=== PATIENT | female | born 1935 | race Caucasian/White ===

== ENCOUNTER 2017-08-29 12:28 | Inpatient (IN) ==
[2017-08-29] MEDS ORDERED: DILTIAZEM 100 MG VIAL.ADD IV ONE (12:39)
[2017-08-29] MEDS ORDERED: FLUMAZENIL 0.5 MG/5 ML VIAL IV ONE (12:42)
[2017-08-29] MEDS ORDERED: FLUMAZENIL 1 MG/10 ML VIAL IV ONE (12:49)
[2017-08-29] MEDS ORDERED: DILTIAZEM 50 MG/10 ML VIAL IV STA (12:49)
[2017-08-29] MEDS ORDERED: DILTIAZEM INJ 100 MG in SODIUM CHLORIDE 0.9% 100 ML IV SCH (13:00)
[2017-08-29 13:05] LABS: Basophils % 0.1 % (0.0-0.8); Hematocrit 30.3 VOL% (35.7-47.0); Hemoglobin 9.5 GM/DL (12.0-16.0); Immature Granulocytes % 0.8 %; Immature Granulocytes Absolute 0.08 #; Lymphocytes # 0.6 10*3/uL (1.4-4.0); Lymphocytes % 5.8 % (21.3-54.2); Mean Corpuscular HGB Conc 31.4 GM/DL (32-36); Mean Corpuscular Hemoglobin 29 PG (27-34); Mean Corpuscular Volume 92.9 FL (87-102); Mean Platelet Volume 12.2 FL (9.6-12.0); Monocytes # 0.6 10*3/uL (0.11-0.8); Monocytes % 5.5 % (1.7-12.7); Neutrophils # 9.3 10*3/uL (1.4-7.4); Neutrophils % 87.8 % (38.7-73.9); Platelet Count 147 T/CUMM (130-400); Red Blood Count 3.26 MC/CUMM (3.8-5.5); Red Cell Distribution Width 15.1 % (9.3-17.3); White Blood Count 10.5 T/CUMM (4-12)
[2017-08-29 13:10] LABS: INR 1.3; PT Patient Result 13.2 SECS; Partial Thromboplastin Time 27.4 SECS (0-40)
[2017-08-29 13:25] LABS: Albumin 3.3 G/DL (3.4-5.0); Bilirubin,Total 2.1 MG/DL (0.2-1.0); Calcium 8.4 MG/DL (8.5-10.1); Osmolality,Calculated 302.8 MOS/KG (273-304); Potassium 3.2 MMOL/L (3.5-5.1); Thyroid Stimulating Hormone 0.523 uIU/ml (0.358-3.74); Total Protein 6.3 G/DL (6.4-8.3)
[2017-08-29] MEDS ORDERED: POTASSIUM BICARB EFFERVESCENT 25 MEQ TABLET PO ONE ×2 (13:31→14:01)
[2017-08-29 13:39] LABS: Apearance,Urine CLOUDY (Clear); Bacteria,Urine Many /HPF (Few); Bilirubin,Urine Negative (Negative); Blood, Urine Small mg/dL (Negative); Glucose,Urine (UA) 50 mg/dL (Negative); Ketones,Urine 5 mg/dL (Negative); Mucus,Urine Occasional /LPF (Occasional); Nitrite,Urine Negative (Negative); Protein,Urine >=500 MG/DL; RBC,Urine 8 /HPF (0-4); Urine Color Amber (Yellow); Urine Specific Gravity 1.013 (1.001-1.035); Urine Urobilinogen < 2.0 EU/DL (0.2-1.0); WBC,Urine 3 /HPF (0-6)
[2017-08-29 13:51] LABS: Barbiturates Screen,Urine Negative (Negative); Benzodiazepines Screen,Urine Positive (Negative); Cannabinoid Screen,Urine Negative (Negative); Opiate Screen,Urine Negative (Negative); Phencyclidine Screen,Urine Negative (Negative)
[2017-08-29] MEDS ORDERED: ONDANSETRON 4 MG/2 ML VIAL ONE (14:01)
[2017-08-29] MEDS ORDERED: PROMETHAZINE 25 MG/1 ML VIAL IM PRN (14:44)
[2017-08-29] MEDS ORDERED: diphenhydrAMINE CAP 25 MG CAPSULE PO PRN (14:44)
[2017-08-29] MEDS ORDERED: SODIUM CHLORIDE 0.9% 1,000 ML IV ONE (14:44)
[2017-08-29] MEDS ORDERED: ACETAMINOPHEN 325 MG TABLET PO PRN (14:44)
[2017-08-29] MEDS ORDERED: MORPHINE 2 MG/1 ML SYRINGE IV PRN (14:44)
[2017-08-29] MEDS ORDERED: DOCUSATE SODIUM 100 MG CAPSULE PO PRN (14:44)
[2017-08-29] MEDS ORDERED: SODIUM CHLORIDE 0.9% 1,000 ML IV STA (14:45)
[2017-08-29] MEDS ORDERED: PROPRANOLOL 1 MG/1 ML VIAL IV SCH (15:00)
[2017-08-29] MEDS ORDERED: GLUCAGON 1 MG VIAL IM PRN (15:01)
[2017-08-29] MEDS ORDERED: DEXTROSE 50% 25 GM/50 ML VIAL IV PRN (15:01)
[2017-08-29] MEDS ORDERED: PROPRANOLOL 1 MG/1 ML VIAL IV ONE (15:29)
[2017-08-29] MEDS ORDERED: PROPRANOLOL 1 MG/1 ML VIAL IV STA (15:43)
[2017-08-29 15:54] LABS: Bilirubin,Direct 0.66 MG/DL (0.0-0.20); Bilirubin,Indirect 1.5 MG/DL (0.0-1.0); Bilirubin,Total 2.2 MG/DL (0.2-1.0); Total Protein 6.4 G/DL (6.4-8.3)
[2017-08-29 15:55] LABS: Albumin 3.5 G/DL (3.4-5.0)
[2017-08-29 15:58] LABS: % Iron Saturation 9.2 % (18-50)
[2017-08-29] MEDS: SODIUM CHLORIDE 0.9% 1,000 ML IV SCH (16:38)
[2017-08-29] MEDS: ENOXAPARIN 30 MG/0.3 ML SYRINGE SUBCUT SCH (16:56)
[2017-08-29] MEDS: INSULIN LISPRO 100 UNIT/ML SUBCUT SCH (17:02)
[2017-08-29] MEDS: ONDANSETRON 4 MG/2 ML VIAL IV PRN (17:11)
[2017-08-29] MEDS ORDERED: hydrALAZINE 20 MG/1 ML VIAL IV PRN (17:45)
[2017-08-29 20:35] LABS: Troponin I Only 0.443 NG/ML (0.00-0.045)
[2017-08-29] MEDS: PROPRANOLOL 1 MG/1 ML VIAL IV SCH (22:57)
[2017-08-29 23:12] LABS: Troponin I Only 0.383 NG/ML (0.00-0.045)
[2017-08-30] MEDS: SODIUM CHLORIDE 0.9% 1,000 ML IV SCH ×2 (00:14→07:11)
[2017-08-30 02:49] LABS: Basophils % 0.1 % (0.0-0.8); Hematocrit 31.7 VOL% (35.7-47.0); Hemoglobin 10.6 GM/DL (12.0-16.0); Immature Granulocytes % 0.9 %; Immature Granulocytes Absolute 0.12 #; Lymphocytes # 1.1 10*3/uL (1.4-4.0); Lymphocytes % 8.4 % (21.3-54.2); Mean Corpuscular HGB Conc 33.4 GM/DL (32-36); Mean Corpuscular Hemoglobin 29 PG (27-34); Mean Corpuscular Volume 88.1 FL (87-102); Mean Platelet Volume 11.8 FL (9.6-12.0); Monocytes # 0.9 10*3/uL (0.11-0.8); Monocytes % 6.4 % (1.7-12.7); NRBC # 0.04 10*3/uL; Neutrophils # 11.3 10*3/uL (1.4-7.4); Neutrophils % 84.2 % (38.7-73.9); Platelet Count 176 T/CUMM (130-400); White Blood Count 13.4 T/CUMM (4-12)
[2017-08-30 03:11] LABS: Calcium 7.8 MG/DL (8.5-10.1); Osmolality,Calculated 299.1 MOS/KG (273-304)
[2017-08-30 03:38] LABS: Bilirubin,Total 2.3 MG/DL (0.2-1.0); Calcium 7.9 MG/DL (8.5-10.1); Osmolality,Calculated 297.3 MOS/KG (273-304); Risk Ratio 1.93; Total Protein 5.6 G/DL (6.4-8.3); VLDL CHOLESTEROL 10.4 MG/DL
[2017-08-30] MEDS: PROPRANOLOL 1 MG/1 ML VIAL IV SCH ×4 (04:30→21:11)
[2017-08-30] MEDS ORDERED: ASPIRIN EC 81 MG TABLET PO SCH (09:00)
[2017-08-30] MEDS ORDERED: ASPIRIN 300 MG SUPP RECTAL SCH (09:00)
[2017-08-30] MEDS: INSULIN LISPRO 100 UNIT/ML SUBCUT SCH ×2 (09:18→17:15)
[2017-08-30] MEDS: LACTATED RINGERS 1,000 ML IV SCH (09:19)
[2017-08-30] MEDS: ONDANSETRON 4 MG/2 ML VIAL IV PRN (09:48)
[2017-08-30] MEDS: PANTOPRAZOLE 40 MG VIAL IV SCH ×2 (13:23→21:11)
[2017-08-30] MEDS: ENOXAPARIN 30 MG/0.3 ML SYRINGE SUBCUT SCH (15:18)
[2017-08-30] MEDS ORDERED: ZALEPLON 5 MG CAPSULE PO ONE (23:26)
[2017-08-31] MEDS: ONDANSETRON 4 MG/2 ML VIAL IV PRN ×3 (00:27→13:04)
[2017-08-31] MEDS: PROPRANOLOL 1 MG/1 ML VIAL IV SCH ×2 (05:20→09:35)
[2017-08-31] MEDS: LACTATED RINGERS 1,000 ML IV SCH ×2 (06:22→06:23)
[2017-08-31 06:50] LABS: Basophils % 0.1 % (0.0-0.8); Hematocrit 36.1 VOL% (35.7-47.0); Hemoglobin 11.5 GM/DL (12.0-16.0); Immature Granulocytes % 0.8 %; Lymphocytes % 7.9 % (21.3-54.2); Mean Corpuscular HGB Conc 31.9 GM/DL (32-36); Mean Corpuscular Hemoglobin 29 PG (27-34); Mean Corpuscular Volume 90.9 FL (87-102); Mean Platelet Volume 13.1 FL (9.6-12.0); Monocytes # 0.7 10*3/uL (0.11-0.8); Monocytes % 5.7 % (1.7-12.7); NRBC # 0.03 10*3/uL; Neutrophils # 10.5 10*3/uL (1.4-7.4); Neutrophils % 85.5 % (38.7-73.9); Platelet Count 214 T/CUMM (130-400); Red Blood Count 3.97 MC/CUMM (3.8-5.5); Red Cell Distribution Width 15.1 % (9.3-17.3); White Blood Count 12.3 T/CUMM (4-12)
[2017-08-31 07:20] LABS: Calcium 8.6 MG/DL (8.5-10.1); Osmolality,Calculated 296.5 MOS/KG (273-304); Potassium 4.5 MMOL/L (3.5-5.1)
[2017-08-31 07:30] LABS: Albumin 3.2 G/DL (3.4-5.0); Bilirubin,Direct 0.84 MG/DL (0.0-0.20); Bilirubin,Indirect 1.2 MG/DL (0.0-1.0); Total Protein 5.8 G/DL (6.4-8.3)
[2017-08-31] MEDS: INSULIN LISPRO 100 UNIT/ML SUBCUT SCH ×2 (09:28→16:43)
[2017-08-31] MEDS: guaiFENesin/DM ER 600-30 MG TABLET PO PRN ×2 (09:29→21:03)
[2017-08-31] MEDS: PANTOPRAZOLE 40 MG VIAL IV SCH ×2 (09:29→20:25)
[2017-08-31] MEDS ORDERED: FUROSEMIDE 40 MG/4 ML VIAL IV ONE (09:49)
[2017-08-31 10:54] LABS: ABG Base Excess -4.4 MMOL/L (-2.5-2.5); ABG HCO3 18.9 MMOL/L (20-26); ABG Oxygen Saturation 95.9 % (95-100); ABG PCO2 29.4 MM HG (35-48); ABG PH 7.425 (7.35-7.45); ABG PO2 91.1 MM HG (80-95); ABG TCO2 19.8 MMOL/L (23-27)
[2017-08-31] MEDS ORDERED: ALBUTEROL/IPRATROPIUM 3 ML NEB RESP TX SCH (11:00)
[2017-08-31] MEDS: DILTIAZEM INJ 100 MG in SODIUM CHLORIDE 0.9% 100 ML IV SCH (11:18)
[2017-08-31] MEDS: METOPROLOL TARTRATE 5 MG/5 ML VIAL IV SCH ×2 (16:36→17:47)
[2017-09-01] MEDS: METOPROLOL TARTRATE 5 MG/5 ML VIAL IV SCH ×3 (00:13→11:59)
[2017-09-01] MEDS: DILTIAZEM INJ 100 MG in SODIUM CHLORIDE 0.9% 100 ML IV SCH ×2 (02:40→16:03)
[2017-09-01 03:24] LABS: Basophils % 0.1 % (0.0-0.8); Eosinophils % 0.1 % (0.00-10.9); Hematocrit 41.7 VOL% (35.7-47.0); Hemoglobin 13.2 GM/DL (12.0-16.0); Immature Granulocytes % 0.5 %; Immature Granulocytes Absolute 0.05 #; Lymphocytes % 9.8 % (21.3-54.2); Mean Corpuscular HGB Conc 31.7 GM/DL (32-36); Mean Corpuscular Hemoglobin 29 PG (27-34); Mean Corpuscular Volume 91.2 FL (87-102); Mean Platelet Volume 12.1 FL (9.6-12.0); Monocytes # 0.6 10*3/uL (0.11-0.8); Monocytes % 5.4 % (1.7-12.7); NRBC # 0.03 10*3/uL; Neutrophils # 8.6 10*3/uL (1.4-7.4); Neutrophils % 84.1 % (38.7-73.9); Platelet Count 205 T/CUMM (130-400); Red Blood Count 4.57 MC/CUMM (3.8-5.5); Red Cell Distribution Width 14.7 % (9.3-17.3); White Blood Count 10.3 T/CUMM (4-12)
[2017-09-01 04:53] LABS: Calcium 8.2 MG/DL (8.5-10.1); Osmolality,Calculated 291.1 MOS/KG (273-304); Potassium 4.5 MMOL/L (3.5-5.1)
[2017-09-01] MEDS: guaiFENesin/DM ER 600-30 MG TABLET PO PRN ×2 (06:14→20:47)
[2017-09-01] MEDS ORDERED: ALBUTEROL 2.5 MG/3 ML NEB RESP TX STA (08:14)
[2017-09-01] MEDS: LEVALBUTEROL 1.25 MG/3 ML NEB RESP TX PRN (08:47)
[2017-09-01] MEDS ORDERED: LIDOCAINE 100 MG/5 ML SYRINGE ONE (09:00)
[2017-09-01] MEDS ORDERED: PROPOFOL 200 MG/20 ML VIAL IV ONE (09:00)
[2017-09-01] MEDS: INSULIN LISPRO 100 UNIT/ML SUBCUT SCH ×2 (10:48→16:11)
[2017-09-01] MEDS: PHENOL 1.4% THROAT SPRAY 177 ML BOTTLE PO PRN ×2 (11:12→16:17)
[2017-09-01] MEDS: guaiFENesin 200 MG/10 ML UDCUP PO PRN ×2 (11:12→16:11)
[2017-09-01] MEDS: PANTOPRAZOLE 40 MG VIAL IV SCH ×2 (11:12→20:44)
[2017-09-01] MEDS: DILTIAZEM 60 MG TABLET PO SCH ×3 (12:07→20:44)
[2017-09-01] MEDS: SODIUM CHLORIDE 0.9% 1,000 ML IV SCH (18:33)
[2017-09-01] MEDS ORDERED: FOSINOPRIL 20 MG TABLET PO SCH (21:00)
[2017-09-01] MEDS ORDERED: METOPROLOL SUCCINATE XL 25 MG TABLET PO SCH (21:00)
[2017-09-02] MEDS: guaiFENesin 200 MG/10 ML UDCUP PO PRN ×2 (01:49→21:10)
[2017-09-02] MEDS: LEVALBUTEROL 1.25 MG/3 ML NEB RESP TX PRN ×2 (02:30→13:35)
[2017-09-02 04:47] LABS: Basophils % 0.1 % (0.0-0.8); Eosinophils # 0.1 10*3/uL (0.0-0.87); Eosinophils % 0.9 % (0.00-10.9); Hematocrit 36.8 VOL% (35.7-47.0); Hemoglobin 12.3 GM/DL (12.0-16.0); Immature Granulocytes % 0.7 %; Immature Granulocytes Absolute 0.07 #; Lymphocytes # 1.1 10*3/uL (1.4-4.0); Lymphocytes % 10.2 % (21.3-54.2); Mean Corpuscular HGB Conc 33.4 GM/DL (32-36); Mean Corpuscular Hemoglobin 29 PG (27-34); Mean Corpuscular Volume 87.8 FL (87-102); Mean Platelet Volume 13.1 FL (9.6-12.0); Monocytes # 0.8 10*3/uL (0.11-0.8); Monocytes % 7.7 % (1.7-12.7); NRBC # 0.02 10*3/uL; Neutrophils # 8.4 10*3/uL (1.4-7.4); Neutrophils % 80.4 % (38.7-73.9); Platelet Count 216 T/CUMM (130-400); Red Blood Count 4.19 MC/CUMM (3.8-5.5); Red Cell Distribution Width 14.9 % (9.3-17.3); White Blood Count 10.4 T/CUMM (4-12)
[2017-09-02 05:13] LABS: Osmolality,Calculated 296.7 MOS/KG (273-304); Potassium 3.6 MMOL/L (3.5-5.1)
[2017-09-02 05:38] LABS: Albumin 2.8 G/DL (3.4-5.0); Bilirubin,Direct 0.51 MG/DL (0.0-0.20); Bilirubin,Indirect 0.5 MG/DL (0.0-1.0); Total Protein 5.2 G/DL (6.4-8.3)
[2017-09-02] MEDS: SODIUM CHLORIDE 0.9% 1,000 ML IV SCH (08:23)
[2017-09-02] MEDS: PANTOPRAZOLE 40 MG VIAL IV SCH ×2 (08:36→21:04)
[2017-09-02] MEDS: DILTIAZEM 60 MG TABLET PO SCH ×3 (08:37→21:05)
[2017-09-02] MEDS ORDERED: METOPROLOL SUCCINATE XL 25 MG TABLET PO SCH (09:00)
[2017-09-02] MEDS: INSULIN LISPRO 100 UNIT/ML SUBCUT SCH ×2 (09:54→17:49)
[2017-09-02] MEDS ORDERED: FOSINOPRIL 20 MG TABLET PO SCH (11:30)
[2017-09-02] MEDS ORDERED: DILTIAZEM 90 MG TABLET PO SCH (11:30)
[2017-09-02] MEDS ORDERED: cloNIDine 0.1 MG TABLET PO SCH (11:30)
[2017-09-02] MEDS ORDERED: MAGNESIUM HYDROXIDE SUSP 30 ML UDCUP PO ONE (15:00)
[2017-09-02] MEDS: ENOXAPARIN 30 MG/0.3 ML SYRINGE SUBCUT SCH (15:01)
[2017-09-02] MEDS ORDERED: LEVALBUTEROL 1.25 MG/3 ML NEB RESP TX PRN (15:56)
[2017-09-02] MEDS: LEVOFLOXACIN INJ 250 MG in PREMIX 1 EACH IV SCH (16:35)
[2017-09-02] MEDS: ZINC OXIDE PASTE 113 GM TUBE TOP SCH ×2 (16:36→21:05)
[2017-09-02] MEDS: LEVALBUTEROL 1.25 MG/3 ML NEB RESP TX SCH ×2 (19:16→22:50)
[2017-09-03] MEDS: SODIUM CHLORIDE 0.9% 1,000 ML IV SCH ×4 (02:33→18:19)
[2017-09-03] MEDS: LEVALBUTEROL 1.25 MG/3 ML NEB RESP TX SCH ×6 (02:39→22:47)
[2017-09-03 04:53] LABS: Basophils % 0.1 % (0.0-0.8); Eosinophils # 0.1 10*3/uL (0.0-0.87); Eosinophils % 1.4 % (0.00-10.9); Hematocrit 34.9 VOL% (35.7-47.0); Hemoglobin 11.1 GM/DL (12.0-16.0); Immature Granulocytes % 0.5 %; Immature Granulocytes Absolute 0.04 #; Lymphocytes # 0.9 10*3/uL (1.4-4.0); Mean Corpuscular HGB Conc 31.8 GM/DL (32-36); Mean Corpuscular Hemoglobin 29 PG (27-34); Mean Corpuscular Volume 90.9 FL (87-102); Monocytes # 0.7 10*3/uL (0.11-0.8); Monocytes % 8.5 % (1.7-12.7); Neutrophils % 77.5 % (38.7-73.9); Platelet Count 182 T/CUMM (130-400); Red Blood Count 3.84 MC/CUMM (3.8-5.5); White Blood Count 7.8 T/CUMM (4-12)
[2017-09-03 05:24] LABS: Calcium 7.8 MG/DL (8.5-10.1); Osmolality,Calculated 300.1 MOS/KG (273-304); Potassium 3.6 MMOL/L (3.5-5.1)
[2017-09-03] MEDS: ASPIRIN EC 81 MG TABLET PO SCH (09:05)
[2017-09-03] MEDS: DILTIAZEM 60 MG TABLET PO SCH (09:05)
[2017-09-03] MEDS: PANTOPRAZOLE 40 MG TABLET PO SCH (09:06)
[2017-09-03] MEDS: INSULIN LISPRO 100 UNIT/ML SUBCUT SCH ×2 (09:07→18:15)
[2017-09-03] MEDS: ZINC OXIDE PASTE 113 GM TUBE TOP SCH ×2 (09:13→22:36)
[2017-09-03] MEDS: guaiFENesin 200 MG/10 ML UDCUP PO PRN ×3 (09:13→20:36)
[2017-09-03] MEDS: guaiFENesin/DM ER 600-30 MG TABLET PO PRN (09:13)
[2017-09-03] MEDS ORDERED: DILTIAZEM 90 MG TABLET PO SCH (15:00)
[2017-09-03] MEDS: ENOXAPARIN 30 MG/0.3 ML SYRINGE SUBCUT SCH (15:03)
[2017-09-03] MEDS: METOPROLOL SUCCINATE XL 25 MG TABLET PO SCH (18:15)
[2017-09-03] MEDS: MIRTAZAPINE 15 MG TABLET PO SCH (21:55)
[2017-09-03] MEDS: INSULIN GLARGINE 100 UNIT/ML SUBCUT SCH (21:56)
[2017-09-04] MEDS: hydrALAZINE 20 MG/1 ML VIAL IV PRN ×2 (00:42→20:43)
[2017-09-04] MEDS: guaiFENesin 200 MG/10 ML UDCUP PO PRN ×4 (00:45→20:42)
[2017-09-04] MEDS: SODIUM CHLORIDE 0.9% 1,000 ML IV SCH ×2 (03:52→12:31)
[2017-09-04] MEDS: LEVALBUTEROL 1.25 MG/3 ML NEB RESP TX SCH ×6 (04:01→22:42)
[2017-09-04 04:43] LABS: Basophils % 0.1 % (0.0-0.8); Eosinophils # 0.1 10*3/uL (0.0-0.87); Hematocrit 31.5 VOL% (35.7-47.0); Immature Granulocytes % 0.4 %; Immature Granulocytes Absolute 0.03 #; Lymphocytes % 15.1 % (21.3-54.2); Mean Corpuscular HGB Conc 31.7 GM/DL (32-36); Mean Corpuscular Hemoglobin 29 PG (27-34); Mean Platelet Volume 12.4 FL (9.6-12.0); Monocytes # 0.8 10*3/uL (0.11-0.8); Monocytes % 11.3 % (1.7-12.7); Neutrophils # 4.9 10*3/uL (1.4-7.4); Neutrophils % 71.1 % (38.7-73.9); Platelet Count 196 T/CUMM (130-400); Red Blood Count 3.46 MC/CUMM (3.8-5.5); Red Cell Distribution Width 15.4 % (9.3-17.3); White Blood Count 6.9 T/CUMM (4-12)
[2017-09-04] MEDS ORDERED: hydrALAZINE 20 MG/1 ML VIAL IV ONE (05:00)
[2017-09-04 05:25] LABS: Calcium 7.5 MG/DL (8.5-10.1); Osmolality,Calculated 297.7 MOS/KG (273-304); Potassium 3.4 MMOL/L (3.5-5.1)
[2017-09-04 05:35] LABS: Albumin 2.7 G/DL (3.4-5.0); Bilirubin,Direct 0.19 MG/DL (0.0-0.20); Bilirubin,Indirect 0.3 MG/DL (0.0-1.0); Bilirubin,Total 0.5 MG/DL (0.2-1.0); Total Protein 5.2 G/DL (6.4-8.3)
[2017-09-04] MEDS: INSULIN LISPRO 100 UNIT/ML SUBCUT SCH ×2 (09:03→17:41)
[2017-09-04] MEDS: ZINC OXIDE PASTE 113 GM TUBE TOP SCH ×2 (09:04→22:23)
[2017-09-04] MEDS: ASPIRIN EC 81 MG TABLET PO SCH (09:04)
[2017-09-04] MEDS: DILTIAZEM CD 240 MG CAPSULE PO SCH (09:04)
[2017-09-04] MEDS: METOPROLOL SUCCINATE XL 25 MG TABLET PO SCH (09:05)
[2017-09-04] MEDS: guaiFENesin/DM ER 600-30 MG TABLET PO PRN (09:05)
[2017-09-04] MEDS: PANTOPRAZOLE 40 MG TABLET PO SCH (09:05)
[2017-09-04] MEDS ORDERED: METOPROLOL SUCCINATE XL 50 MG TABLET PO ONE (13:18)
[2017-09-04] MEDS ORDERED: FUROSEMIDE 20 MG/2 ML VIAL IV ONE (13:54)
[2017-09-04] MEDS: LEVOFLOXACIN INJ 250 MG in PREMIX 1 EACH IV SCH (15:09)
[2017-09-04] MEDS: POTASSIUM CHLORIDE RIDER 10 MEQ in PREMIX 1 EACH IV PRN ×3 (16:25→22:50)
[2017-09-04] MEDS: INSULIN GLARGINE 100 UNIT/ML SUBCUT SCH (20:42)
[2017-09-04] MEDS: MIRTAZAPINE 15 MG TABLET PO SCH (20:42)
[2017-09-04] MEDS: APIXABAN 2.5 MG TABLET PO SCH (20:42)
[2017-09-04] MEDS: guaiFENesin/DM ER 600-30 MG TABLET PO SCH (22:23)
[2017-09-05] MEDS: LEVALBUTEROL 1.25 MG/3 ML NEB RESP TX SCH ×5 (02:43→19:34)
[2017-09-05] MEDS: guaiFENesin 200 MG/10 ML UDCUP PO PRN ×2 (05:20→21:19)
[2017-09-05] MEDS: hydrALAZINE 20 MG/1 ML VIAL IV PRN (05:32)
[2017-09-05 05:37] LABS: Basophils % 0.2 % (0.0-0.8); Eosinophils # 0.2 10*3/uL (0.0-0.87); Eosinophils % 3.1 % (0.00-10.9); Hematocrit 32.5 VOL% (35.7-47.0); Hemoglobin 10.2 GM/DL (12.0-16.0); Immature Granulocytes % 0.6 %; Immature Granulocytes Absolute 0.04 #; Lymphocytes # 0.9 10*3/uL (1.4-4.0); Lymphocytes % 14.9 % (21.3-54.2); Mean Corpuscular HGB Conc 31.4 GM/DL (32-36); Mean Corpuscular Hemoglobin 29 PG (27-34); Mean Corpuscular Volume 92.6 FL (87-102); Mean Platelet Volume 12.4 FL (9.6-12.0); Monocytes # 0.8 10*3/uL (0.11-0.8); Monocytes % 12.5 % (1.7-12.7); Neutrophils # 4.2 10*3/uL (1.4-7.4); Neutrophils % 68.7 % (38.7-73.9); Platelet Count 180 T/CUMM (130-400); Red Blood Count 3.51 MC/CUMM (3.8-5.5); Red Cell Distribution Width 15.9 % (9.3-17.3); White Blood Count 6.2 T/CUMM (4-12)
[2017-09-05 06:04] LABS: Calcium 8.1 MG/DL (8.5-10.1); Osmolality,Calculated 295.8 MOS/KG (273-304)
[2017-09-05] MEDS ORDERED: FUROSEMIDE 40 MG/4 ML VIAL ONE (07:30)
[2017-09-05] MEDS: FUROSEMIDE 40 MG/4 ML VIAL IV SCH ×2 (07:34→16:19)
[2017-09-05] MEDS ORDERED: METOPROLOL SUCCINATE XL 50 MG TABLET PO SCH (09:00)
[2017-09-05 09:21] LABS: ABG Base Excess -1.7 MMOL/L (-2.5-2.5); ABG Oxygen Saturation 98.1 % (95-100); ABG PCO2 39.7 MM HG (35-48); ABG PH 7.376 (7.35-7.45); ABG TCO2 20.9 MMOL/L (23-27)
[2017-09-05] MEDS: INSULIN LISPRO 100 UNIT/ML SUBCUT SCH ×2 (09:50→16:19)
[2017-09-05] MEDS: DILTIAZEM CD 240 MG CAPSULE PO SCH (09:51)
[2017-09-05] MEDS: guaiFENesin/DM ER 600-30 MG TABLET PO SCH ×2 (09:51→21:19)
[2017-09-05] MEDS: ASPIRIN EC 81 MG TABLET PO SCH (09:51)
[2017-09-05] MEDS: APIXABAN 2.5 MG TABLET PO SCH ×2 (09:51→21:19)
[2017-09-05] MEDS: hydrALAZINE 25 MG TABLET PO SCH ×2 (09:51→21:19)
[2017-09-05] MEDS: PANTOPRAZOLE 40 MG TABLET PO SCH (09:51)
[2017-09-05] MEDS: ZINC OXIDE PASTE 113 GM TUBE TOP SCH ×2 (09:51→21:20)
[2017-09-05] MEDS: NEBIVOLOL 5 MG TABLET PO SCH (21:19)
[2017-09-05] MEDS: MIRTAZAPINE 15 MG TABLET PO SCH (21:20)
[2017-09-05] MEDS: INSULIN GLARGINE 100 UNIT/ML SUBCUT SCH (21:21)
[2017-09-06] MEDS: LEVALBUTEROL 1.25 MG/3 ML NEB RESP TX SCH ×6 (00:45→21:37)
[2017-09-06] MEDS: guaiFENesin 200 MG/10 ML UDCUP PO PRN (02:20)
[2017-09-06 02:49] LABS: Basophils % 0.1 % (0.0-0.8); Eosinophils # 0.2 10*3/uL (0.0-0.87); Hematocrit 32.1 VOL% (35.7-47.0); Hemoglobin 10.3 GM/DL (12.0-16.0); Immature Granulocytes % 0.6 %; Immature Granulocytes Absolute 0.04 #; Lymphocytes # 0.9 10*3/uL (1.4-4.0); Lymphocytes % 13.3 % (21.3-54.2); Mean Corpuscular HGB Conc 32.1 GM/DL (32-36); Mean Corpuscular Hemoglobin 29 PG (27-34); Mean Corpuscular Volume 90.2 FL (87-102); Mean Platelet Volume 12.3 FL (9.6-12.0); Monocytes # 0.8 10*3/uL (0.11-0.8); Monocytes % 11.9 % (1.7-12.7); Neutrophils % 71.1 % (38.7-73.9); Platelet Count 188 T/CUMM (130-400); Red Blood Count 3.56 MC/CUMM (3.8-5.5); Red Cell Distribution Width 16.1 % (9.3-17.3)
[2017-09-06 03:03] LABS: Potassium 4.1 MMOL/L (3.5-5.1)
[2017-09-06] MEDS: hydrALAZINE 20 MG/1 ML VIAL IV PRN (05:01)
[2017-09-06] MEDS: INSULIN LISPRO 100 UNIT/ML SUBCUT SCH ×2 (08:39→16:37)
[2017-09-06] MEDS: guaiFENesin/DM ER 600-30 MG TABLET PO SCH ×2 (08:43→21:01)
[2017-09-06] MEDS: APIXABAN 2.5 MG TABLET PO SCH ×2 (08:44→21:01)
[2017-09-06] MEDS: hydrALAZINE 25 MG TABLET PO SCH ×2 (08:44→21:01)
[2017-09-06] MEDS: FUROSEMIDE 40 MG/4 ML VIAL IV SCH ×2 (08:44→15:35)
[2017-09-06] MEDS: NEBIVOLOL 5 MG TABLET PO SCH (08:44)
[2017-09-06] MEDS: DILTIAZEM CD 240 MG CAPSULE PO SCH (08:44)
[2017-09-06] MEDS: ASPIRIN EC 81 MG TABLET PO SCH (08:44)
[2017-09-06] MEDS: PANTOPRAZOLE 40 MG TABLET PO SCH (08:44)
[2017-09-06] MEDS: ZINC OXIDE PASTE 113 GM TUBE TOP SCH ×2 (08:49→21:00)
[2017-09-06] MEDS ORDERED: NEBIVOLOL 5 MG TABLET PO ONE (12:34)
[2017-09-06] MEDS: LEVOFLOXACIN INJ 250 MG in PREMIX 1 EACH IV SCH (15:41)
[2017-09-06] MEDS: INSULIN GLARGINE 100 UNIT/ML SUBCUT SCH (21:00)
[2017-09-06] MEDS: NEBIVOLOL 10 MG TABLET PO SCH (21:00)
[2017-09-06] MEDS: MIRTAZAPINE 15 MG TABLET PO SCH (21:01)
[2017-09-07] MEDS: LEVALBUTEROL 1.25 MG/3 ML NEB RESP TX SCH ×6 (01:29→20:02)
[2017-09-07 05:08] LABS: Potassium 3.8 MMOL/L (3.5-5.1)
[2017-09-07] MEDS: DILTIAZEM CD 240 MG CAPSULE PO SCH (08:19)
[2017-09-07] MEDS: guaiFENesin/DM ER 600-30 MG TABLET PO SCH ×2 (08:19→21:09)
[2017-09-07] MEDS: hydrALAZINE 25 MG TABLET PO SCH ×2 (08:20→21:09)
[2017-09-07] MEDS: FUROSEMIDE 40 MG/4 ML VIAL IV SCH (08:20)
[2017-09-07] MEDS: APIXABAN 2.5 MG TABLET PO SCH ×2 (08:20→21:09)
[2017-09-07] MEDS: NEBIVOLOL 10 MG TABLET PO SCH ×2 (08:20→21:09)
[2017-09-07] MEDS: ASPIRIN EC 81 MG TABLET PO SCH (08:20)
[2017-09-07] MEDS: PANTOPRAZOLE 40 MG TABLET PO SCH (08:20)
[2017-09-07] MEDS: INSULIN LISPRO 100 UNIT/ML SUBCUT SCH ×2 (08:20→17:02)
[2017-09-07] MEDS: ZINC OXIDE PASTE 113 GM TUBE TOP SCH ×2 (08:34→21:10)
[2017-09-07] MEDS: LISINOPRIL 2.5 MG TABLET PO SCH (21:08)
[2017-09-07] MEDS: INSULIN GLARGINE 100 UNIT/ML SUBCUT SCH (21:09)
[2017-09-07] MEDS: MIRTAZAPINE 15 MG TABLET PO SCH (21:14)
[2017-09-08] MEDS: LEVALBUTEROL 1.25 MG/3 ML NEB RESP TX SCH ×7 (00:13→23:57)
[2017-09-08 06:10] LABS: Calcium 8.1 MG/DL (8.5-10.1); Osmolality,Calculated 290.3 MOS/KG (273-304); Potassium 3.9 MMOL/L (3.5-5.1)
[2017-09-08] MEDS ORDERED: FUROSEMIDE 40 MG/4 ML VIAL IV SCH (09:00)
[2017-09-08] MEDS: INSULIN LISPRO 100 UNIT/ML SUBCUT SCH ×2 (09:57→17:19)
[2017-09-08] MEDS: hydrALAZINE 25 MG TABLET PO SCH ×3 (09:58→21:12)
[2017-09-08] MEDS: NEBIVOLOL 10 MG TABLET PO SCH (09:58)
[2017-09-08] MEDS: ASPIRIN EC 81 MG TABLET PO SCH (09:58)
[2017-09-08] MEDS: DILTIAZEM CD 240 MG CAPSULE PO SCH (09:58)
[2017-09-08] MEDS: ZINC OXIDE PASTE 113 GM TUBE TOP SCH ×2 (09:59→21:13)
[2017-09-08] MEDS: APIXABAN 2.5 MG TABLET PO SCH ×2 (09:59→21:12)
[2017-09-08] MEDS: LISINOPRIL 2.5 MG TABLET PO SCH ×2 (10:00→21:12)
[2017-09-08] MEDS: PANTOPRAZOLE 40 MG TABLET PO SCH (10:00)
[2017-09-08] MEDS: metOLazone 2.5 MG TABLET PO SCH (10:00)
[2017-09-08] MEDS: guaiFENesin/DM ER 600-30 MG TABLET PO SCH ×2 (10:00→21:17)
[2017-09-08] MEDS: LEVOFLOXACIN INJ 250 MG in PREMIX 1 EACH IV SCH (15:57)
[2017-09-08] MEDS: MIRTAZAPINE 15 MG TABLET PO SCH (21:11)
[2017-09-08] MEDS: NEBIVOLOL 5 MG TABLET PO SCH (21:12)
[2017-09-08] MEDS: INSULIN GLARGINE 100 UNIT/ML SUBCUT SCH (21:20)
[2017-09-09] MEDS: LEVALBUTEROL 1.25 MG/3 ML NEB RESP TX SCH ×5 (03:31→19:18)
[2017-09-09 06:29] LABS: Basophils % 0.3 % (0.0-0.8); Eosinophils # 0.2 10*3/uL (0.0-0.87); Eosinophils % 2.3 % (0.00-10.9); Hematocrit 30.1 VOL% (35.7-47.0); Hemoglobin 9.6 GM/DL (12.0-16.0); Immature Granulocytes % 0.6 %; Immature Granulocytes Absolute 0.04 #; Lymphocytes # 0.9 10*3/uL (1.4-4.0); Mean Corpuscular HGB Conc 31.9 GM/DL (32-36); Mean Corpuscular Hemoglobin 29 PG (27-34); Mean Corpuscular Volume 91.2 FL (87-102); Mean Platelet Volume 12.6 FL (9.6-12.0); Monocytes # 0.7 10*3/uL (0.11-0.8); Monocytes % 10.4 % (1.7-12.7); Neutrophils # 4.8 10*3/uL (1.4-7.4); Neutrophils % 73.4 % (38.7-73.9); Platelet Count 171 T/CUMM (130-400); Red Cell Distribution Width 15.8 % (9.3-17.3); White Blood Count 6.6 T/CUMM (4-12)
[2017-09-09 06:54] LABS: Calcium 8.1 MG/DL (8.5-10.1); Osmolality,Calculated 292.3 MOS/KG (273-304); Potassium 3.6 MMOL/L (3.5-5.1)
[2017-09-09 06:56] LABS: Calcium 8.4 MG/DL (8.5-10.1); Osmolality,Calculated 293.1 MOS/KG (273-304); Potassium 3.7 MMOL/L (3.5-5.1)
[2017-09-09] MEDS ORDERED: FUROSEMIDE 40 MG/4 ML VIAL ONE (08:27)
[2017-09-09] MEDS: APIXABAN 2.5 MG TABLET PO SCH ×2 (08:58→21:27)
[2017-09-09] MEDS: NEBIVOLOL 5 MG TABLET PO SCH ×2 (08:58→21:26)
[2017-09-09] MEDS: LISINOPRIL 2.5 MG TABLET PO SCH ×2 (08:59→21:27)
[2017-09-09] MEDS: PANTOPRAZOLE 40 MG TABLET PO SCH (08:59)
[2017-09-09] MEDS: guaiFENesin/DM ER 600-30 MG TABLET PO SCH ×2 (08:59→21:27)
[2017-09-09] MEDS: INSULIN LISPRO 100 UNIT/ML SUBCUT SCH ×2 (09:00→16:07)
[2017-09-09] MEDS: ASPIRIN EC 81 MG TABLET PO SCH (09:00)
[2017-09-09] MEDS: hydrALAZINE 25 MG TABLET PO SCH ×3 (09:00→21:27)
[2017-09-09] MEDS: ZINC OXIDE PASTE 113 GM TUBE TOP SCH ×2 (09:01→21:27)
[2017-09-09] MEDS: metOLazone 2.5 MG TABLET PO SCH (09:01)
[2017-09-09] MEDS ORDERED: FUROSEMIDE 40 MG/4 ML VIAL IV ONE (09:11)
[2017-09-09] MEDS: DILTIAZEM CD 240 MG CAPSULE PO SCH (09:22)
[2017-09-09] MEDS: FUROSEMIDE 40 MG/4 ML VIAL IV SCH (16:08)
[2017-09-09] MEDS: MIRTAZAPINE 15 MG TABLET PO SCH (21:25)
[2017-09-09] MEDS: INSULIN GLARGINE 100 UNIT/ML SUBCUT SCH (21:27)
[2017-09-10] MEDS: LEVALBUTEROL 1.25 MG/3 ML NEB RESP TX SCH ×7 (00:23→23:48)
[2017-09-10 05:07] LABS: Basophils % 0.1 % (0.0-0.8); Eosinophils # 0.1 10*3/uL (0.0-0.87); Eosinophils % 1.8 % (0.00-10.9); Hematocrit 29.4 VOL% (35.7-47.0); Hemoglobin 9.5 GM/DL (12.0-16.0); Immature Granulocytes % 0.5 %; Immature Granulocytes Absolute 0.04 #; Lymphocytes # 1.1 10*3/uL (1.4-4.0); Lymphocytes % 14.8 % (21.3-54.2); Mean Corpuscular HGB Conc 32.3 GM/DL (32-36); Mean Corpuscular Hemoglobin 29 PG (27-34); Mean Corpuscular Volume 88.6 FL (87-102); Monocytes # 0.7 10*3/uL (0.11-0.8); Monocytes % 9.4 % (1.7-12.7); Neutrophils # 5.4 10*3/uL (1.4-7.4); Neutrophils % 73.4 % (38.7-73.9); Platelet Count 190 T/CUMM (130-400); Red Blood Count 3.32 MC/CUMM (3.8-5.5); Red Cell Distribution Width 15.8 % (9.3-17.3); White Blood Count 7.3 T/CUMM (4-12)
[2017-09-10] MEDS: DILTIAZEM CD 240 MG CAPSULE PO SCH (08:44)
[2017-09-10] MEDS: LISINOPRIL 2.5 MG TABLET PO SCH ×2 (08:44→22:14)
[2017-09-10] MEDS: PANTOPRAZOLE 40 MG TABLET PO SCH (08:44)
[2017-09-10] MEDS: guaiFENesin/DM ER 600-30 MG TABLET PO SCH ×2 (08:44→22:14)
[2017-09-10] MEDS: metOLazone 2.5 MG TABLET PO SCH (08:44)
[2017-09-10] MEDS: APIXABAN 2.5 MG TABLET PO SCH ×2 (08:44→22:14)
[2017-09-10] MEDS: ASPIRIN EC 81 MG TABLET PO SCH (08:44)
[2017-09-10] MEDS: NEBIVOLOL 5 MG TABLET PO SCH ×2 (08:44→22:14)
[2017-09-10] MEDS: hydrALAZINE 25 MG TABLET PO SCH ×3 (08:44→22:15)
[2017-09-10] MEDS: INSULIN LISPRO 100 UNIT/ML SUBCUT SCH ×2 (08:45→17:32)
[2017-09-10] MEDS: FUROSEMIDE 40 MG/4 ML VIAL IV SCH ×2 (08:47→15:25)
[2017-09-10] MEDS: ZINC OXIDE PASTE 113 GM TUBE TOP SCH ×2 (09:30→22:15)
[2017-09-10] MEDS: LEVOFLOXACIN INJ 250 MG in PREMIX 1 EACH IV SCH (15:28)
[2017-09-10] MEDS: MIRTAZAPINE 15 MG TABLET PO SCH (22:14)
[2017-09-10] MEDS: INSULIN GLARGINE 100 UNIT/ML SUBCUT SCH (22:45)
[2017-09-11] MEDS: LEVALBUTEROL 1.25 MG/3 ML NEB RESP TX SCH ×5 (03:12→19:36)
[2017-09-11 05:44] LABS: Basophils % 0.3 % (0.0-0.8); Eosinophils # 0.1 10*3/uL (0.0-0.87); Eosinophils % 1.7 % (0.00-10.9); Hematocrit 28.3 VOL% (35.7-47.0); Hemoglobin 9.1 GM/DL (12.0-16.0); Immature Granulocytes % 0.4 %; Immature Granulocytes Absolute 0.03 #; Lymphocytes # 1.2 10*3/uL (1.4-4.0); Lymphocytes % 15.3 % (21.3-54.2); Mean Corpuscular HGB Conc 32.2 GM/DL (32-36); Mean Corpuscular Hemoglobin 29 PG (27-34); Mean Corpuscular Volume 88.7 FL (87-102); Mean Platelet Volume 12.5 FL (9.6-12.0); Monocytes # 0.8 10*3/uL (0.11-0.8); Monocytes % 11.1 % (1.7-12.7); Neutrophils # 5.4 10*3/uL (1.4-7.4); Neutrophils % 71.2 % (38.7-73.9); Platelet Count 188 T/CUMM (130-400); Red Blood Count 3.19 MC/CUMM (3.8-5.5); Red Cell Distribution Width 15.8 % (9.3-17.3); White Blood Count 7.6 T/CUMM (4-12)
[2017-09-11 06:11] LABS: Calcium 8.2 MG/DL (8.5-10.1); Osmolality,Calculated 294.4 MOS/KG (273-304); Potassium 3.6 MMOL/L (3.5-5.1)
[2017-09-11 08:32] LABS: Albumin 2.6 G/DL (3.4-5.0); Bilirubin,Direct 0.16 MG/DL (0.0-0.20); Bilirubin,Indirect 0.3 MG/DL (0.0-1.0); Bilirubin,Total 0.5 MG/DL (0.2-1.0); Total Protein 5.2 G/DL (6.4-8.3)
[2017-09-11] MEDS: DILTIAZEM CD 240 MG CAPSULE PO SCH (08:51)
[2017-09-11] MEDS: PANTOPRAZOLE 40 MG TABLET PO SCH (08:52)
[2017-09-11] MEDS: APIXABAN 2.5 MG TABLET PO SCH ×2 (08:52→21:57)
[2017-09-11] MEDS: hydrALAZINE 25 MG TABLET PO SCH ×3 (08:52→21:57)
[2017-09-11] MEDS: ASPIRIN EC 81 MG TABLET PO SCH (08:52)
[2017-09-11] MEDS: guaiFENesin/DM ER 600-30 MG TABLET PO SCH ×2 (08:52→21:56)
[2017-09-11] MEDS: LISINOPRIL 2.5 MG TABLET PO SCH ×2 (08:52→21:57)
[2017-09-11] MEDS: metOLazone 2.5 MG TABLET PO SCH (08:52)
[2017-09-11] MEDS: NEBIVOLOL 5 MG TABLET PO SCH ×2 (08:52→21:57)
[2017-09-11] MEDS: FUROSEMIDE 40 MG/4 ML VIAL IV SCH ×2 (08:53→15:44)
[2017-09-11] MEDS: INSULIN LISPRO 100 UNIT/ML SUBCUT SCH ×2 (08:53→17:17)
[2017-09-11] MEDS: ZINC OXIDE PASTE 113 GM TUBE TOP SCH ×2 (08:59→22:30)
[2017-09-11 14:17] LABS: Protein/Creatinine Ratio,Urine 0.9 RATIO
[2017-09-11] MEDS: MIRTAZAPINE 15 MG TABLET PO SCH (21:54)
[2017-09-11] MEDS: INSULIN GLARGINE 100 UNIT/ML SUBCUT SCH (21:57)
[2017-09-12] MEDS: LEVALBUTEROL 1.25 MG/3 ML NEB RESP TX SCH ×4 (01:35→11:30)
[2017-09-12 04:57] LABS: Basophils % 0.3 % (0.0-0.8); Eosinophils # 0.1 10*3/uL (0.0-0.87); Eosinophils % 2.2 % (0.00-10.9); Hematocrit 27.1 VOL% (35.7-47.0); Hemoglobin 8.9 GM/DL (12.0-16.0); Immature Granulocytes % 0.5 %; Immature Granulocytes Absolute 0.03 #; Lymphocytes # 1.2 10*3/uL (1.4-4.0); Lymphocytes % 19.1 % (21.3-54.2); Mean Corpuscular HGB Conc 32.8 GM/DL (32-36); Mean Corpuscular Hemoglobin 29 PG (27-34); Mean Corpuscular Volume 89.1 FL (87-102); Mean Platelet Volume 11.8 FL (9.6-12.0); Monocytes # 0.9 10*3/uL (0.11-0.8); Monocytes % 14.5 % (1.7-12.7); Neutrophils # 4.1 10*3/uL (1.4-7.4); Neutrophils % 63.4 % (38.7-73.9); Platelet Count 178 T/CUMM (130-400); Red Blood Count 3.04 MC/CUMM (3.8-5.5); Red Cell Distribution Width 15.7 % (9.3-17.3); White Blood Count 6.5 T/CUMM (4-12)
[2017-09-12 05:30] LABS: Calcium 8.1 MG/DL (8.5-10.1); Osmolality,Calculated 296.1 MOS/KG (273-304); Potassium 3.8 MMOL/L (3.5-5.1)
[2017-09-12] MEDS: INSULIN LISPRO 100 UNIT/ML SUBCUT SCH ×2 (08:07→16:56)
[2017-09-12] MEDS ORDERED: acetaZOLAMIDE 250 MG TABLET PO SCH (09:00)
[2017-09-12] MEDS: NEBIVOLOL 5 MG TABLET PO SCH (09:52)
[2017-09-12] MEDS: hydrALAZINE 25 MG TABLET PO SCH ×2 (09:52→14:57)
[2017-09-12] MEDS: ASPIRIN EC 81 MG TABLET PO SCH (09:52)
[2017-09-12] MEDS: DILTIAZEM CD 240 MG CAPSULE PO SCH (09:53)
[2017-09-12] MEDS: guaiFENesin/DM ER 600-30 MG TABLET PO SCH (09:54)
[2017-09-12] MEDS: APIXABAN 2.5 MG TABLET PO SCH (09:54)
[2017-09-12] MEDS: ZINC OXIDE PASTE 113 GM TUBE TOP SCH (09:54)
[2017-09-12] MEDS: LISINOPRIL 2.5 MG TABLET PO SCH (09:54)
[2017-09-12] MEDS: PANTOPRAZOLE 40 MG TABLET PO SCH (09:55)
[2017-09-12] MEDS: metOLazone 2.5 MG TABLET PO SCH (09:55)
[2017-09-12] MEDS: FUROSEMIDE 40 MG/4 ML VIAL IV SCH ×2 (10:04→15:38)
[2017-09-12] MEDS: LEVOFLOXACIN INJ 250 MG in PREMIX 1 EACH IV SCH (15:44)
[2017-09-12 16:50] VITALS: BP 99/46
== END 2017-09-12 17:06 | disposition swing bed (61) | DRG 308 ==
LOC: N.ED 12:28 → SUATTDRO 14:21 → N.EDINP 14:21 → N.TELES 15:42
PROVIDERS: ADMIT Internal Medicine Cardiovascular Disease; ATTEND Internal Medicine Cardiovascular Disease

== ENCOUNTER 2017-09-25 15:59 | Inpatient (IN) ==
[2017-09-25] MEDS ORDERED: methylPREDNISolone SOD SUC 125 MG/2 ML VIAL IV STA (16:49)
[2017-09-25] MEDS ORDERED: ONDANSETRON 4 MG/2 ML VIAL IV STA (16:49)
[2017-09-25] MEDS ORDERED: cefTRIAXone 1,000 MG in SODIUM CHLORIDE 0.9% 100 ML IV STA (16:49)
[2017-09-25] MEDS ORDERED: SODIUM CHLORIDE 0.9% 500 ML IV STA (16:49)
[2017-09-25] MEDS ORDERED: methylPREDNISolone SOD SUC 125 MG/2 ML VIAL ONE (16:53)
[2017-09-25] MEDS ORDERED: ONDANSETRON 4 MG/2 ML VIAL ONE (16:53)
[2017-09-25] MEDS ORDERED: cefTRIAXone 1,000 MG VIAL ONE (16:53)
[2017-09-25] MEDS ORDERED: ALBUTEROL 2.5 MG/3 ML NEB RESP TX SCH (17:00)
[2017-09-25 17:04] LABS: Apearance,Urine CLEAR (Clear); Bilirubin,Urine Negative (Negative); Blood, Urine Negative (Negative); Glucose,Urine (UA) Negative (Negative); Hyaline Casts,Urine 1 /LPF (0-3); Ketones,Urine Negative (Negative); Nitrite,Urine Negative (Negative); Protein,Urine 100 MG/DL; RBC,Urine 1 /HPF (0-4); Urine Color Yellow (Yellow); Urine Specific Gravity 1.014 (1.001-1.035); Urine Urobilinogen < 2.0 EU/DL (0.2-1.0); WBC,Urine <1 /HPF (0-6)
[2017-09-25 17:09] LABS: Basophils % 0.2 % (0.0-0.8); Hematocrit 31.8 VOL% (35.7-47.0); Hemoglobin 9.5 GM/DL (12.0-16.0); Immature Granulocytes % 1.6 %; Immature Granulocytes Absolute 0.09 #; Lymphocytes # 0.7 10*3/uL (1.4-4.0); Lymphocytes % 12.9 % (21.3-54.2); Mean Corpuscular HGB Conc 29.9 GM/DL (32-36); Mean Corpuscular Hemoglobin 29 PG (27-34); Mean Platelet Volume 12.6 FL (9.6-12.0); Monocytes # 0.6 10*3/uL (0.11-0.8); NRBC # 0.12 10*3/uL; Neutrophils # 4.2 10*3/uL (1.4-7.4); Neutrophils % 75.3 % (38.7-73.9); Platelet Count 282 T/CUMM (130-400); Red Blood Count 3.28 MC/CUMM (3.8-5.5); White Blood Count 5.6 T/CUMM (4-12)
[2017-09-25] MEDS ORDERED: ATROPINE 0.4 MG/1 ML VIAL ONE (17:12)
[2017-09-25] MEDS ORDERED: ATROPINE 1 MG/10 ML SYRINGE ONE (17:13)
[2017-09-25] MEDS ORDERED: NOREPINEPHRINE 8 MG in SODIUM CHLORIDE 0.9% 242 ML IV PRN (17:14)
[2017-09-25 17:18] LABS: PT Patient Result 10.7 SECS
[2017-09-25] MEDS ORDERED: LORazepam 2 MG/1 ML VIAL IV STA (17:18)
[2017-09-25] MEDS ORDERED: LORazepam 2 MG/1 ML VIAL ONE (17:21)
[2017-09-25 17:25] LABS: Lactic Acid 1.5 MMOL/L (0.4-2.0)
[2017-09-25 17:27] LABS: Albumin 3.3 G/DL (3.4-5.0); Bilirubin,Total 0.5 MG/DL (0.2-1.0); Calcium 9.1 MG/DL (8.5-10.1); Osmolality,Calculated 285.1 MOS/KG (273-304); Potassium 5.5 MMOL/L (3.5-5.1); Total Protein 7.8 G/DL (6.4-8.3); Troponin I Only 0.016 NG/ML (0.00-0.045)
[2017-09-25] MEDS ORDERED: ATROPINE 1 MG/10 ML SYRINGE IV STA (17:28)
[2017-09-25] MEDS ORDERED: FUROSEMIDE 20 MG/2 ML VIAL ONE (17:34)
[2017-09-25] MEDS ORDERED: CALCIUM CHLORIDE 1,000 MG/10 ML SYRINGE IV ONE (17:36)
[2017-09-25] MEDS ORDERED: NOREPINEPHRINE 4 MG/4 ML VIAL IV ONE (17:36)
[2017-09-25 18:08] LABS: ABG PCO2 51.6 MM HG (35-48)
[2017-09-25 18:09] LABS: ABG Base Excess -7.9 MMOL/L (-2.5-2.5); ABG HCO3 19.8 MMOL/L (20-26); ABG Oxygen Saturation 99.5 % (95-100); ABG PO2 440.6 MM HG (80-95); ABG TCO2 21.4 MMOL/L (23-27)
[2017-09-25 18:10] LABS: ABG PH 7.202 (7.35-7.45)
[2017-09-25] MEDS ORDERED: SODIUM BICARBONATE 50 MEQ/50 ML VIAL IV STA (18:18)
[2017-09-25] MEDS ORDERED: SODIUM BICARBONATE 50 MEQ/50 ML SYRINGE IV ONE ×2 (18:19→18:36)
[2017-09-25] MEDS ORDERED: VECURONIUM 10 MG VIAL IV ONE (18:40)
[2017-09-25] MEDS ORDERED: ETOMIDATE 20 MG/10 ML VIAL IV ONE (18:40)
[2017-09-25] MEDS ORDERED: MAGNESIUM SULF RIDER 4 GM in PREMIX 1 EACH IV PRN (19:23)
[2017-09-25] MEDS ORDERED: MAGNESIUM SULF RIDER 2 GM in PREMIX 1 EACH IV PRN (19:23)
[2017-09-25] MEDS ORDERED: ONDANSETRON 4 MG/2 ML VIAL IV PRN (19:23)
[2017-09-25] MEDS ORDERED: GLUCAGON 1 MG VIAL IM PRN (19:28)
[2017-09-25] MEDS ORDERED: DEXTROSE 50% 25 GM/50 ML VIAL IV PRN (19:28)
[2017-09-25] MEDS ORDERED: ALBUTEROL 2.5 MG/3 ML NEB RESP TX PRN (19:29)
[2017-09-25] MEDS ORDERED: PIPERACILLIN/TAZOBACTAM 3,375 MG in SODIUM CHLORIDE 0.9% 100 ML IV SCH (20:00)
[2017-09-25] MEDS: LEVOFLOXACIN INJ 750 MG in PREMIX 1 EACH IV SCH (20:42)
[2017-09-25] MEDS: INSULIN GLARGINE 100 UNIT/ML SUBCUT SCH (20:42)
[2017-09-25] MEDS: FUROSEMIDE 40 MG/4 ML VIAL IV SCH (20:42)
[2017-09-25] MEDS: ENOXAPARIN 60 MG/0.6 ML SYRINGE SUBCUT SCH (20:42)
[2017-09-25] MEDS: ALBUTEROL 2.5 MG/3 ML NEB RESP TX SCH (21:02)
[2017-09-25 21:09] LABS: ABG Base Excess -2.7 MMOL/L (-2.5-2.5); ABG Oxygen Saturation 99.5 % (95-100); ABG PCO2 37.3 MM HG (35-48); ABG PH 7.388 (7.35-7.45); ABG PO2 410.3 MM HG (80-95); ABG TCO2 23.1 MMOL/L (23-27); Allen Test Positive; Pt O2 Delivery Device Ventilator
[2017-09-25] MEDS: PROPOFOL 1,000 MG/100 ML BOTTLE IV SCH (21:15)
[2017-09-25] MEDS: PIPERACILLIN/TAZOBACTAM 3,375 MG in SODIUM CHLORIDE 0.9% 100 ML IV SCH (22:42)
[2017-09-26] MEDS: INSULIN REGULAR 100 UNIT/ML SUBCUT SCH ×4 (00:02→18:52)
[2017-09-26 01:50] LABS: Basophils % 0.2 % (0.0-0.8); Hematocrit 30.5 VOL% (35.7-47.0); Hemoglobin 9.2 GM/DL (12.0-16.0); Immature Granulocytes % 1.3 %; Immature Granulocytes Absolute 0.08 #; Lymphocytes # 0.4 10*3/uL (1.4-4.0); Lymphocytes % 5.7 % (21.3-54.2); Mean Corpuscular HGB Conc 30.2 GM/DL (32-36); Mean Corpuscular Hemoglobin 28 PG (27-34); Mean Corpuscular Volume 93.8 FL (87-102); Mean Platelet Volume 11.5 FL (9.6-12.0); Monocytes # 0.2 10*3/uL (0.11-0.8); Monocytes % 2.8 % (1.7-12.7); NRBC # 0.09 10*3/uL; Neutrophils # 5.6 10*3/uL (1.4-7.4); Platelet Count 236 T/CUMM (130-400); Red Blood Count 3.25 MC/CUMM (3.8-5.5); Red Cell Distribution Width 15.9 % (9.3-17.3); White Blood Count 6.2 T/CUMM (4-12)
[2017-09-26 02:20] LABS: Bilirubin,Total 0.7 MG/DL (0.2-1.0); Calcium 9.2 MG/DL (8.5-10.1); Osmolality,Calculated 296.5 MOS/KG (273-304); Potassium 4.8 MMOL/L (3.5-5.1); Total Protein 6.3 G/DL (6.4-8.3)
[2017-09-26] MEDS: FUROSEMIDE 40 MG/4 ML VIAL IV SCH ×4 (03:15→20:32)
[2017-09-26 04:18] LABS: Pt O2 Delivery Device Ventilator
[2017-09-26 04:19] LABS: ABG Base Excess -2.1 MMOL/L (-2.5-2.5); ABG HCO3 22.4 MMOL/L (20-26); ABG Oxygen Saturation 98.9 % (95-100); ABG PCO2 37.4 MM HG (35-48); ABG PH 7.396 (7.35-7.45); ABG TCO2 23.6 MMOL/L (23-27)
[2017-09-26] MEDS: ALBUTEROL 2.5 MG/3 ML NEB RESP TX SCH ×3 (07:24→19:33)
[2017-09-26] MEDS: ASPIRIN 300 MG SUPP RECTAL SCH (09:17)
[2017-09-26] MEDS: PANTOPRAZOLE 40 MG VIAL IV SCH (09:28)
[2017-09-26] MEDS: PIPERACILLIN/TAZOBACTAM 3,375 MG in SODIUM CHLORIDE 0.9% 100 ML IV SCH ×2 (09:36→21:14)
[2017-09-26] MEDS: NEBIVOLOL 5 MG TABLET PO SCH (11:51)
[2017-09-26] MEDS: PROPOFOL 1,000 MG/100 ML BOTTLE IV SCH ×2 (16:35→19:36)
[2017-09-26] MEDS: ZINC OXIDE PASTE 113 GM TUBE TOP SCH ×2 (16:36→20:32)
[2017-09-26] MEDS: SKIN HEALING OINT (AQUAPHOR) 50 GM TUBE TOP PRN (16:36)
[2017-09-26] MEDS: INSULIN GLARGINE 100 UNIT/ML SUBCUT SCH (20:32)
[2017-09-26] MEDS: NYSTATIN CREAM 15 GM TUBE TOP SCH (20:32)
[2017-09-26] MEDS: ENOXAPARIN 60 MG/0.6 ML SYRINGE SUBCUT SCH (20:32)
[2017-09-27] MEDS: INSULIN REGULAR 100 UNIT/ML SUBCUT SCH ×4 (00:04→18:30)
[2017-09-27 03:24] LABS: ABG Base Excess -0.5 MMOL/L (-2.5-2.5); ABG HCO3 21.9 MMOL/L (20-26); ABG Oxygen Saturation 98.7 % (95-100); ABG PCO2 28.2 MM HG (35-48); ABG PH 7.509 (7.35-7.45); ABG PO2 168.3 MM HG (80-95); ABG TCO2 22.8 MMOL/L (23-27)
[2017-09-27 04:37] LABS: Basophils % 0.1 % (0.0-0.8); Hematocrit 26.1 VOL% (35.7-47.0); Hemoglobin 8.5 GM/DL (12.0-16.0); Immature Granulocytes % 1.2 %; Immature Granulocytes Absolute 0.14 #; Lymphocytes # 0.6 10*3/uL (1.4-4.0); Lymphocytes % 4.7 % (21.3-54.2); Mean Corpuscular HGB Conc 32.6 GM/DL (32-36); Mean Corpuscular Hemoglobin 28 PG (27-34); Mean Platelet Volume 11.6 FL (9.6-12.0); Monocytes # 0.8 10*3/uL (0.11-0.8); Monocytes % 7.2 % (1.7-12.7); NRBC # 0.22 10*3/uL; Neutrophils # 10.2 10*3/uL (1.4-7.4); Neutrophils % 86.8 % (38.7-73.9); Platelet Count 253 T/CUMM (130-400); Red Cell Distribution Width 16.4 % (9.3-17.3); White Blood Count 11.7 T/CUMM (4-12)
[2017-09-27 05:02] LABS: Calcium 8.3 MG/DL (8.5-10.1); Osmolality,Calculated 303.3 MOS/KG (273-304); Potassium 4.9 MMOL/L (3.5-5.1)
[2017-09-27 05:51] LABS: Lymphocytes 12 % (20-55); Myelocytes 1 %; Nucleated Red Blood Cells 2 (0-5); Segmented Neutrophils 80 % (50-85); Total Cells Counted 100
[2017-09-27 05:52] LABS: Elliptocytes 1+
[2017-09-27 05:53] LABS: Hypochromasia 2+; Microcytosis 2+; Platelet Estimate Normal; Polychromasia Few
[2017-09-27] MEDS: PROPOFOL 1,000 MG/100 ML BOTTLE IV SCH ×2 (08:04→20:51)
[2017-09-27] MEDS: FUROSEMIDE 40 MG/4 ML VIAL IV SCH ×2 (08:14→16:08)
[2017-09-27] MEDS: ALBUTEROL 2.5 MG/3 ML NEB RESP TX SCH ×3 (08:17→19:17)
[2017-09-27] MEDS ORDERED: SODIUM CHLORIDE 0.9% 1,000 ML IV PRN (09:02)
[2017-09-27] MEDS: ASPIRIN 300 MG SUPP RECTAL SCH (09:20)
[2017-09-27] MEDS: NEBIVOLOL 5 MG TABLET PO SCH (09:20)
[2017-09-27] MEDS: PANTOPRAZOLE 40 MG VIAL IV SCH (09:21)
[2017-09-27] MEDS: PIPERACILLIN/TAZOBACTAM 3,375 MG in SODIUM CHLORIDE 0.9% 100 ML IV SCH ×2 (09:38→21:00)
[2017-09-27] MEDS: DILTIAZEM INJ 100 MG in SODIUM CHLORIDE 0.9% 100 ML IV SCH ×2 (12:04→19:03)
[2017-09-27] MEDS: SKIN HEALING OINT (AQUAPHOR) 50 GM TUBE TOP PRN (12:24)
[2017-09-27] MEDS: ZINC OXIDE PASTE 113 GM TUBE TOP SCH ×2 (12:24→20:52)
[2017-09-27] MEDS: NYSTATIN CREAM 15 GM TUBE TOP SCH ×2 (12:24→20:52)
[2017-09-27 12:31] LABS: Lymphocytes,Pleural Fluid 80 %; Monocytes,Pleural Fluid 1 %; Neutrophils,Pleural Fluid 19 %; RBC,Pleural Fluid 3503 T/CUMM
[2017-09-27 16:26] LABS: Hematocrit 32.5 VOL% (35.7-47.0)
[2017-09-27] MEDS: INSULIN GLARGINE 100 UNIT/ML SUBCUT SCH (20:52)
[2017-09-27] MEDS: LEVOFLOXACIN INJ 750 MG in PREMIX 1 EACH IV SCH (20:52)
[2017-09-28] MEDS: INSULIN REGULAR 100 UNIT/ML SUBCUT SCH ×5 (00:11→20:57)
[2017-09-28 03:17] LABS: ABG Base Excess 0.3 MMOL/L (-2.5-2.5); ABG HCO3 23.3 MMOL/L (20-26); ABG Oxygen Saturation 97.1 % (95-100); ABG PCO2 31.9 MM HG (35-48); ABG PH 7.481 (7.35-7.45); ABG PO2 96.7 MM HG (80-95); ABG TCO2 24.3 MMOL/L (23-27)
[2017-09-28] MEDS: PROPOFOL 1,000 MG/100 ML BOTTLE IV SCH (04:37)
[2017-09-28] MEDS: DILTIAZEM INJ 100 MG in SODIUM CHLORIDE 0.9% 100 ML IV SCH ×2 (05:47→16:12)
[2017-09-28 06:06] LABS: Basophils % 0.2 % (0.0-0.8); Hematocrit 32.3 VOL% (35.7-47.0); Hemoglobin 10.4 GM/DL (12.0-16.0); Immature Granulocytes % 0.9 %; Lymphocytes # 0.7 10*3/uL (1.4-4.0); Lymphocytes % 6.7 % (21.3-54.2); Mean Corpuscular HGB Conc 32.2 GM/DL (32-36); Mean Corpuscular Hemoglobin 29 PG (27-34); Mean Corpuscular Volume 89.2 FL (87-102); Mean Platelet Volume 10.8 FL (9.6-12.0); Monocytes # 0.8 10*3/uL (0.11-0.8); Monocytes % 7.8 % (1.7-12.7); NRBC # 0.16 10*3/uL; Neutrophils % 84.4 % (38.7-73.9); Platelet Count 235 T/CUMM (130-400); Red Blood Count 3.62 MC/CUMM (3.8-5.5); White Blood Count 10.7 T/CUMM (4-12)
[2017-09-28 06:57] LABS: Osmolality,Calculated 310.7 MOS/KG (273-304); Potassium 3.8 MMOL/L (3.5-5.1)
[2017-09-28] MEDS: ALBUTEROL 2.5 MG/3 ML NEB RESP TX SCH ×3 (07:09→19:18)
[2017-09-28] MEDS: FUROSEMIDE 40 MG/4 ML VIAL IV SCH ×2 (07:47→16:35)
[2017-09-28 08:31] LABS: Pt O2 Delivery Device Simple Mask
[2017-09-28 08:34] LABS: ABG HCO3 24.2 MMOL/L (20-26); ABG Oxygen Saturation 98.7 % (95-100); ABG PCO2 33.4 MM HG (35-48); ABG PH 7.478 (7.35-7.45); ABG PO2 160.8 MM HG (80-95); ABG TCO2 25.2 MMOL/L (23-27)
[2017-09-28] MEDS: POTASSIUM CHLORIDE RIDER 10 MEQ in PREMIX 1 EACH IV PRN ×2 (08:35→09:30)
[2017-09-28] MEDS: NEBIVOLOL 5 MG TABLET PO SCH (09:28)
[2017-09-28] MEDS: PANTOPRAZOLE 40 MG VIAL IV SCH (09:31)
[2017-09-28] MEDS: PIPERACILLIN/TAZOBACTAM 3,375 MG in SODIUM CHLORIDE 0.9% 100 ML IV SCH ×2 (09:42→21:00)
[2017-09-28 10:38] LABS: Allen Test Positive
[2017-09-28 10:39] LABS: ABG Base Excess 0.4 MMOL/L (-2.5-2.5); ABG HCO3 24.5 MMOL/L (20-26); ABG Oxygen Saturation 97.9 % (95-100); ABG PCO2 37.5 MM HG (35-48); ABG PH 7.433 (7.35-7.45); ABG PO2 114.7 MM HG (80-95); ABG TCO2 25.7 MMOL/L (23-27)
[2017-09-28] MEDS: ZINC OXIDE PASTE 113 GM TUBE TOP SCH ×2 (16:10→20:56)
[2017-09-28] MEDS: NYSTATIN CREAM 15 GM TUBE TOP SCH ×2 (16:10→20:56)
[2017-09-28] MEDS: SKIN HEALING OINT (AQUAPHOR) 50 GM TUBE TOP PRN (16:10)
[2017-09-28] MEDS: INSULIN GLARGINE 100 UNIT/ML SUBCUT SCH (20:57)
[2017-09-28] MEDS ORDERED: ENOXAPARIN 30 MG/0.3 ML SYRINGE SUBCUT SCH (21:00)
[2017-09-29 03:47] LABS: Calcium 7.6 MG/DL (8.5-10.1); Osmolality,Calculated 305.7 MOS/KG (273-304); Potassium 3.2 MMOL/L (3.5-5.1)
[2017-09-29 04:04] LABS: ABG Base Excess 2.7 MMOL/L (-2.5-2.5); ABG HCO3 26.5 MMOL/L (20-26); ABG PCO2 37.8 MM HG (35-48); ABG PH 7.463 (7.35-7.45); ABG PO2 114.9 MM HG (80-95); ABG TCO2 27.6 MMOL/L (23-27)
[2017-09-29] MEDS: ALBUTEROL 2.5 MG/3 ML NEB RESP TX SCH ×3 (07:26→19:04)
[2017-09-29] MEDS: INSULIN REGULAR 100 UNIT/ML SUBCUT SCH ×4 (08:04→21:05)
[2017-09-29] MEDS ORDERED: FUROSEMIDE 20 MG/2 ML VIAL IV SCH ×2 (09:39→16:00)
[2017-09-29] MEDS: FUROSEMIDE 40 MG/4 ML VIAL IV SCH (09:39)
[2017-09-29] MEDS ORDERED: FUROSEMIDE 20 MG/2 ML VIAL IV ONE (10:00)
[2017-09-29] MEDS: DILTIAZEM 60 MG TABLET PO SCH ×3 (11:22→21:04)
[2017-09-29] MEDS: NEBIVOLOL 5 MG TABLET PO SCH (11:22)
[2017-09-29] MEDS: FLUCONAZOLE 100 MG TABLET PO SCH (11:22)
[2017-09-29] MEDS: POTASSIUM CHLORIDE 20 MEQ TABLET PO SCH ×2 (11:22→21:04)
[2017-09-29] MEDS: PANTOPRAZOLE 40 MG VIAL IV SCH (11:22)
[2017-09-29] MEDS: ZINC OXIDE PASTE 113 GM TUBE TOP SCH ×2 (11:23→21:03)
[2017-09-29] MEDS: NYSTATIN CREAM 15 GM TUBE TOP SCH ×2 (11:24→21:06)
[2017-09-29] MEDS: FUROSEMIDE 20 MG/2 ML VIAL IV SCH (16:59)
[2017-09-29] MEDS ORDERED: LEVOFLOXACIN INJ 500 MG in PREMIX 1 EACH IV SCH (21:00)
[2017-09-29] MEDS: INSULIN GLARGINE 100 UNIT/ML SUBCUT SCH (21:06)
[2017-09-30 04:49] LABS: Basophils % 0.2 % (0.0-0.8); Eosinophils # 0.2 10*3/uL (0.0-0.87); Eosinophils % 2.2 % (0.00-10.9); Hematocrit 33.9 VOL% (35.7-47.0); Hemoglobin 10.7 GM/DL (12.0-16.0); Immature Granulocytes % 1.1 %; Immature Granulocytes Absolute 0.12 #; Lymphocytes # 0.7 10*3/uL (1.4-4.0); Lymphocytes % 6.6 % (21.3-54.2); Mean Corpuscular HGB Conc 31.6 GM/DL (32-36); Mean Corpuscular Hemoglobin 29 PG (27-34); Mean Corpuscular Volume 90.2 FL (87-102); Monocytes # 1.1 10*3/uL (0.11-0.8); Monocytes % 10.3 % (1.7-12.7); NRBC # 0.02 10*3/uL; Neutrophils # 8.3 10*3/uL (1.4-7.4); Neutrophils % 79.6 % (38.7-73.9); Platelet Count 190 T/CUMM (130-400); Red Blood Count 3.76 MC/CUMM (3.8-5.5); Red Cell Distribution Width 15.6 % (9.3-17.3); White Blood Count 10.5 T/CUMM (4-12)
[2017-09-30 05:21] LABS: Calcium 7.9 MG/DL (8.5-10.1); Osmolality,Calculated 293.3 MOS/KG (273-304); Potassium 4.3 MMOL/L (3.5-5.1)
[2017-09-30] MEDS: ALBUTEROL 2.5 MG/3 ML NEB RESP TX SCH ×3 (06:45→19:00)
[2017-09-30] MEDS: DILTIAZEM 60 MG TABLET PO SCH ×3 (08:18→21:15)
[2017-09-30] MEDS: POTASSIUM CHLORIDE 20 MEQ TABLET PO SCH ×2 (08:18→21:15)
[2017-09-30] MEDS: NEBIVOLOL 5 MG TABLET PO SCH (08:18)
[2017-09-30] MEDS: FLUCONAZOLE 100 MG TABLET PO SCH (08:18)
[2017-09-30] MEDS: PANTOPRAZOLE 40 MG VIAL IV SCH (08:19)
[2017-09-30] MEDS: FUROSEMIDE 20 MG/2 ML VIAL IV SCH ×2 (08:19→15:52)
[2017-09-30] MEDS: INSULIN REGULAR 100 UNIT/ML SUBCUT SCH ×4 (09:08→21:16)
[2017-09-30] MEDS: ZINC OXIDE PASTE 113 GM TUBE TOP SCH ×2 (12:00→21:17)
[2017-09-30] MEDS: NYSTATIN CREAM 15 GM TUBE TOP SCH ×2 (12:00→21:17)
[2017-09-30] MEDS: INSULIN GLARGINE 100 UNIT/ML SUBCUT SCH (21:16)
[2017-10-01] MEDS: ALBUTEROL 2.5 MG/3 ML NEB RESP TX SCH ×4 (07:32→19:37)
[2017-10-01] MEDS: INSULIN REGULAR 100 UNIT/ML SUBCUT SCH ×4 (08:18→20:12)
[2017-10-01] MEDS: NEBIVOLOL 5 MG TABLET PO SCH ×2 (08:28→20:11)
[2017-10-01] MEDS: DILTIAZEM 60 MG TABLET PO SCH (08:29)
[2017-10-01] MEDS: FLUCONAZOLE 100 MG TABLET PO SCH (08:29)
[2017-10-01] MEDS: FUROSEMIDE 20 MG/2 ML VIAL IV SCH (08:30)
[2017-10-01] MEDS: POTASSIUM CHLORIDE 20 MEQ TABLET PO SCH ×2 (08:30→20:11)
[2017-10-01] MEDS: PANTOPRAZOLE 40 MG VIAL IV SCH (08:32)
[2017-10-01] MEDS: SKIN HEALING OINT (AQUAPHOR) 50 GM TUBE TOP PRN (08:38)
[2017-10-01] MEDS: ZINC OXIDE PASTE 113 GM TUBE TOP SCH ×2 (08:38→20:12)
[2017-10-01] MEDS: NYSTATIN CREAM 15 GM TUBE TOP SCH ×2 (08:38→20:12)
[2017-10-01] MEDS: METOPROLOL TARTRATE 5 MG/5 ML VIAL IV SCH ×3 (08:59→09:23)
[2017-10-01] MEDS: DILTIAZEM INJ 100 MG in SODIUM CHLORIDE 0.9% 100 ML IV SCH ×2 (10:32→20:14)
[2017-10-01] MEDS: APIXABAN 2.5 MG TABLET PO SCH ×2 (10:33→20:11)
[2017-10-01] MEDS: FUROSEMIDE 20 MG TABLET PO SCH (18:43)
[2017-10-01] MEDS: DILTIAZEM CD 120 MG CAPSULE PO SCH (20:11)
[2017-10-01] MEDS: INSULIN GLARGINE 100 UNIT/ML SUBCUT SCH (20:11)
[2017-10-02 05:39] LABS: Basophils % 0.3 % (0.0-0.8); Eosinophils # 0.4 10*3/uL (0.0-0.87); Eosinophils % 3.9 % (0.00-10.9); Hematocrit 36.6 VOL% (35.7-47.0); Hemoglobin 11.3 GM/DL (12.0-16.0); Immature Granulocytes % 1.7 %; Immature Granulocytes Absolute 0.17 #; Lymphocytes % 10.1 % (21.3-54.2); Mean Corpuscular HGB Conc 30.9 GM/DL (32-36); Mean Corpuscular Hemoglobin 29 PG (27-34); Mean Corpuscular Volume 92.2 FL (87-102); Mean Platelet Volume 11.7 FL (9.6-12.0); Monocytes # 1.2 10*3/uL (0.11-0.8); Monocytes % 11.8 % (1.7-12.7); Neutrophils % 72.2 % (38.7-73.9); Platelet Count 171 T/CUMM (130-400); Red Blood Count 3.97 MC/CUMM (3.8-5.5); Red Cell Distribution Width 15.4 % (9.3-17.3); White Blood Count 9.7 T/CUMM (4-12)
[2017-10-02 06:08] LABS: Calcium 8.7 MG/DL (8.5-10.1); Osmolality,Calculated 288.3 MOS/KG (273-304); Potassium 5.4 MMOL/L (3.5-5.1)
[2017-10-02 06:19] LABS: Hypochromasia 1+; Polychromasia Slight
[2017-10-02] MEDS: ALBUTEROL 2.5 MG/3 ML NEB RESP TX SCH ×3 (06:59→19:20)
[2017-10-02] MEDS: DILTIAZEM CD 120 MG CAPSULE PO SCH ×2 (09:22→21:43)
[2017-10-02] MEDS: APIXABAN 2.5 MG TABLET PO SCH ×2 (09:23→21:43)
[2017-10-02] MEDS: FUROSEMIDE 20 MG TABLET PO SCH ×2 (09:23→17:27)
[2017-10-02] MEDS: ZINC OXIDE PASTE 113 GM TUBE TOP SCH ×2 (09:23→21:48)
[2017-10-02] MEDS: FLUCONAZOLE 100 MG TABLET PO SCH (09:23)
[2017-10-02] MEDS: NEBIVOLOL 5 MG TABLET PO SCH (09:23)
[2017-10-02] MEDS: NYSTATIN CREAM 15 GM TUBE TOP SCH ×2 (09:24→21:48)
[2017-10-02] MEDS: PANTOPRAZOLE 40 MG VIAL IV SCH (09:24)
[2017-10-02] MEDS: POTASSIUM CHLORIDE 20 MEQ TABLET PO SCH (09:24)
[2017-10-02] MEDS: INSULIN REGULAR 100 UNIT/ML SUBCUT SCH ×4 (09:26→21:47)
[2017-10-02] MEDS: DILTIAZEM INJ 100 MG in SODIUM CHLORIDE 0.9% 100 ML IV SCH (09:30)
[2017-10-02] MEDS ORDERED: DIGOXIN 0.5 MG/2 ML AMP IV ONE (10:17)
[2017-10-02] MEDS: VALSARTAN 80 MG TABLET PO SCH (14:49)
[2017-10-02] MEDS ORDERED: NEBIVOLOL 10 MG TABLET PO SCH (21:00)
[2017-10-02] MEDS: INSULIN GLARGINE 100 UNIT/ML SUBCUT SCH (21:47)
[2017-10-03 04:34] LABS: Basophils % 0.3 % (0.0-0.8); Eosinophils # 0.3 10*3/uL (0.0-0.87); Hematocrit 37.5 VOL% (35.7-47.0); Hemoglobin 11.4 GM/DL (12.0-16.0); Immature Granulocytes % 0.9 %; Immature Granulocytes Absolute 0.08 #; Lymphocytes # 0.9 10*3/uL (1.4-4.0); Lymphocytes % 9.9 % (21.3-54.2); Mean Corpuscular HGB Conc 30.4 GM/DL (32-36); Mean Corpuscular Hemoglobin 28 PG (27-34); Mean Corpuscular Volume 91.2 FL (87-102); Mean Platelet Volume 11.7 FL (9.6-12.0); Monocytes # 0.9 10*3/uL (0.11-0.8); Neutrophils # 6.9 10*3/uL (1.4-7.4); Neutrophils % 75.9 % (38.7-73.9); Platelet Count 137 T/CUMM (130-400); Red Blood Count 4.11 MC/CUMM (3.8-5.5); Red Cell Distribution Width 15.4 % (9.3-17.3); White Blood Count 9.1 T/CUMM (4-12)
[2017-10-03] MEDS: ALBUTEROL 2.5 MG/3 ML NEB RESP TX SCH ×3 (07:48→20:45)
[2017-10-03] MEDS: FUROSEMIDE 20 MG TABLET PO SCH ×2 (09:28→17:56)
[2017-10-03] MEDS: INSULIN REGULAR 100 UNIT/ML SUBCUT SCH ×4 (09:28→21:32)
[2017-10-03] MEDS: APIXABAN 2.5 MG TABLET PO SCH ×2 (09:28→21:20)
[2017-10-03] MEDS: PANTOPRAZOLE 40 MG VIAL IV SCH (09:29)
[2017-10-03] MEDS: VALSARTAN 80 MG TABLET PO SCH (09:29)
[2017-10-03] MEDS: FLUCONAZOLE 100 MG TABLET PO SCH (09:29)
[2017-10-03] MEDS: DILTIAZEM CD 120 MG CAPSULE PO SCH ×2 (09:29→21:19)
[2017-10-03] MEDS: ZINC OXIDE PASTE 113 GM TUBE TOP SCH ×2 (09:30→21:32)
[2017-10-03] MEDS: NYSTATIN CREAM 15 GM TUBE TOP SCH ×2 (09:30→21:33)
[2017-10-03] MEDS: DILTIAZEM INJ 100 MG in SODIUM CHLORIDE 0.9% 100 ML IV SCH (10:47)
[2017-10-03] MEDS ORDERED: amLODIPine 5 MG TABLET PO ONE (11:12)
[2017-10-03] MEDS ORDERED: NEBIVOLOL 5 MG TABLET PO ONE (13:37)
[2017-10-03] MEDS: INSULIN GLARGINE 100 UNIT/ML SUBCUT SCH (21:33)
[2017-10-04] MEDS ORDERED: NEBIVOLOL 5 MG TABLET PO ONE (00:30)
[2017-10-04 04:51] LABS: Basophils % 0.4 % (0.0-0.8); Eosinophils # 0.2 10*3/uL (0.0-0.87); Eosinophils % 2.4 % (0.00-10.9); Hematocrit 35.7 VOL% (35.7-47.0); Hemoglobin 11.2 GM/DL (12.0-16.0); Immature Granulocytes % 1.1 %; Lymphocytes % 10.6 % (21.3-54.2); Mean Corpuscular HGB Conc 31.4 GM/DL (32-36); Mean Corpuscular Hemoglobin 29 PG (27-34); Mean Corpuscular Volume 90.8 FL (87-102); Mean Platelet Volume 12.6 FL (9.6-12.0); Monocytes % 10.2 % (1.7-12.7); Neutrophils % 75.3 % (38.7-73.9); Platelet Count 144 T/CUMM (130-400); Red Blood Count 3.93 MC/CUMM (3.8-5.5); Red Cell Distribution Width 15.4 % (9.3-17.3); White Blood Count 9.3 T/CUMM (4-12)
[2017-10-04] MEDS: ALBUTEROL 2.5 MG/3 ML NEB RESP TX SCH ×3 (06:53→20:27)
[2017-10-04] MEDS: INSULIN REGULAR 100 UNIT/ML SUBCUT SCH ×4 (08:40→21:34)
[2017-10-04] MEDS: PANTOPRAZOLE 40 MG VIAL IV SCH (08:40)
[2017-10-04] MEDS: VALSARTAN 80 MG TABLET PO SCH (08:40)
[2017-10-04] MEDS: DILTIAZEM CD 120 MG CAPSULE PO SCH ×2 (08:41→21:36)
[2017-10-04] MEDS: FUROSEMIDE 20 MG TABLET PO SCH ×2 (08:41→16:20)
[2017-10-04] MEDS: FLUCONAZOLE 100 MG TABLET PO SCH (08:41)
[2017-10-04] MEDS: APIXABAN 2.5 MG TABLET PO SCH ×2 (08:41→21:36)
[2017-10-04] MEDS: NYSTATIN CREAM 15 GM TUBE TOP SCH ×2 (08:42→21:37)
[2017-10-04] MEDS: ZINC OXIDE PASTE 113 GM TUBE TOP SCH ×2 (08:42→21:37)
[2017-10-04] MEDS ORDERED: NEBIVOLOL 5 MG TABLET PO SCH (09:00)
[2017-10-04] MEDS: DILTIAZEM INJ 100 MG in SODIUM CHLORIDE 0.9% 100 ML IV SCH (12:04)
[2017-10-04] MEDS: INSULIN GLARGINE 100 UNIT/ML SUBCUT SCH (21:35)
[2017-10-05 03:41] LABS: Basophils % 0.3 % (0.0-0.8); Eosinophils # 0.2 10*3/uL (0.0-0.87); Eosinophils % 2.3 % (0.00-10.9); Hematocrit 34.5 VOL% (35.7-47.0); Hemoglobin 10.9 GM/DL (12.0-16.0); Immature Granulocytes % 1.2 %; Immature Granulocytes Absolute 0.11 #; Lymphocytes # 0.8 10*3/uL (1.4-4.0); Lymphocytes % 8.5 % (21.3-54.2); Mean Corpuscular HGB Conc 31.6 GM/DL (32-36); Mean Corpuscular Hemoglobin 28 PG (27-34); Mean Corpuscular Volume 89.8 FL (87-102); Mean Platelet Volume 12.4 FL (9.6-12.0); Monocytes # 0.8 10*3/uL (0.11-0.8); Monocytes % 9.1 % (1.7-12.7); Neutrophils # 7.1 10*3/uL (1.4-7.4); Neutrophils % 78.6 % (38.7-73.9); Platelet Count 156 T/CUMM (130-400); Red Blood Count 3.84 MC/CUMM (3.8-5.5); Red Cell Distribution Width 15.2 % (9.3-17.3)
[2017-10-05] MEDS: ALBUTEROL 2.5 MG/3 ML NEB RESP TX SCH ×3 (07:23→19:02)
[2017-10-05] MEDS: INSULIN REGULAR 100 UNIT/ML SUBCUT SCH ×3 (09:15→16:18)
[2017-10-05] MEDS: FUROSEMIDE 20 MG TABLET PO SCH ×2 (09:17→16:02)
[2017-10-05] MEDS: APIXABAN 2.5 MG TABLET PO SCH ×2 (09:17→20:26)
[2017-10-05] MEDS: PANTOPRAZOLE 40 MG VIAL IV SCH (09:17)
[2017-10-05] MEDS: VALSARTAN 80 MG TABLET PO SCH (09:17)
[2017-10-05] MEDS: FLUCONAZOLE 100 MG TABLET PO SCH (09:17)
[2017-10-05] MEDS: ZINC OXIDE PASTE 113 GM TUBE TOP SCH (09:18)
[2017-10-05] MEDS: NYSTATIN CREAM 15 GM TUBE TOP SCH (09:19)
[2017-10-05] MEDS: DILTIAZEM CD 120 MG CAPSULE PO SCH ×2 (09:22→20:25)
[2017-10-05] MEDS: DILTIAZEM INJ 100 MG in SODIUM CHLORIDE 0.9% 100 ML IV SCH (11:04)
[2017-10-05] MEDS: DICLOFENAC 1% GEL 100 GM TUBE TOP SCH ×4 (12:23→20:25)
[2017-10-06] MEDS: ZINC OXIDE PASTE 113 GM TUBE TOP SCH ×2 (00:31→08:55)
[2017-10-06] MEDS: INSULIN REGULAR 100 UNIT/ML SUBCUT SCH ×3 (00:31→12:40)
[2017-10-06] MEDS: INSULIN GLARGINE 100 UNIT/ML SUBCUT SCH (00:31)
[2017-10-06] MEDS: NYSTATIN CREAM 15 GM TUBE TOP SCH ×2 (00:32→08:56)
[2017-10-06] MEDS: ALBUTEROL 2.5 MG/3 ML NEB RESP TX SCH (06:52)
[2017-10-06 08:04] LABS: Osmolality,Calculated 280.7 MOS/KG (273-304); Potassium 5.3 MMOL/L (3.5-5.1)
[2017-10-06] MEDS: FLUCONAZOLE 100 MG TABLET PO SCH (08:49)
[2017-10-06] MEDS: FUROSEMIDE 20 MG TABLET PO SCH (08:49)
[2017-10-06] MEDS: DILTIAZEM CD 120 MG CAPSULE PO SCH (08:49)
[2017-10-06] MEDS: APIXABAN 2.5 MG TABLET PO SCH (08:49)
[2017-10-06] MEDS: VALSARTAN 80 MG TABLET PO SCH (08:49)
[2017-10-06] MEDS: DICLOFENAC 1% GEL 100 GM TUBE TOP SCH (08:55)
[2017-10-06] MEDS ORDERED: PANTOPRAZOLE 40 MG TABLET PO SCH (09:00)
[2017-10-06] MEDS: DILTIAZEM INJ 100 MG in SODIUM CHLORIDE 0.9% 100 ML IV SCH (10:06)
[2017-10-06 12:59] VITALS: BP 155/72
== END 2017-10-06 13:01 | disposition swing bed (61) | DRG 208 ==
LOC: EDUNIT# → EDBD → N.ED 15:59 → SUATTDRO 18:51 → N.EDINP 18:51 → N.ICU 19:24 → N.TELES 10-01 15:09
PROVIDERS: ADMIT Internal Medicine

== ENCOUNTER 2017-12-12 09:44 | Inpatient (IN) ==
[2017-12-12] MEDS ORDERED: SODIUM CHLORIDE 0.9% 500 ML IV STA (11:30)
[2017-12-12] MEDS ORDERED: methylPREDNISolone SOD SUC 125 MG/2 ML VIAL IV STA (11:30)
[2017-12-12] MEDS ORDERED: ALBUTEROL 2.5 MG/3 ML NEB RESP TX STA (11:30)
[2017-12-12 12:21] LABS: Basophils % 0.5 % (0.0-0.8); Eosinophils # 0.1 10*3/uL (0.0-0.87); Hemoglobin 11.2 GM/DL (12.0-16.0); Immature Granulocytes % 0.3 %; Immature Granulocytes Absolute 0.02 #; Lymphocytes % 16.5 % (21.3-54.2); Mean Corpuscular Hemoglobin 27 PG (27-34); Mean Corpuscular Volume 83.1 FL (87-102); Mean Platelet Volume 11.5 FL (9.6-12.0); Monocytes # 0.5 10*3/uL (0.11-0.8); Monocytes % 8.3 % (1.7-12.7); Neutrophils # 4.5 10*3/uL (1.4-7.4); Neutrophils % 73.4 % (38.7-73.9); Platelet Count 248 T/CUMM (130-400); Red Blood Count 4.21 MC/CUMM (3.8-5.5); Red Cell Distribution Width 14.6 % (9.3-17.3); White Blood Count 6.1 T/CUMM (4-12)
[2017-12-12 12:35] LABS: PT Patient Result 10.7 SECS
[2017-12-12 12:37] LABS: Alanine Aminotransferase 17 U/L (13-56); Albumin 3.3 G/DL (3.4-5.0); Alkaline Phosphatase 124 U/L (45-117); Aspartate Amino Transferase 23 U/L (0-37); Bilirubin,Total < 0.39 MG/DL (0.2-1.0); Blood Urea Nitrogen 32 MG/DL (7-18); Glucose 121 MG/DL (74-106); Osmolality,Calculated 288.3 MOS/KG (273-304); Sodium 141 MMOL/L (136-145); Total Protein 7.2 G/DL (6.4-8.3)
[2017-12-12] MEDS ORDERED: VALSARTAN 160 MG TABLET PO ONE (13:37)
[2017-12-12] MEDS ORDERED: DILTIAZEM CD 120 MG CAPSULE PO STA (13:37)
[2017-12-12] MEDS ORDERED: metOLazone 2.5 MG TABLET PO ONE (13:38)
[2017-12-12] MEDS ORDERED: DOCUSATE SODIUM 100 MG CAPSULE PO PRN (13:48)
[2017-12-12] MEDS ORDERED: ONDANSETRON 4 MG/2 ML VIAL IV PRN (13:48)
[2017-12-12] MEDS ORDERED: ACETAMINOPHEN 325 MG TABLET PO PRN (13:48)
[2017-12-12] MEDS ORDERED: PANTOPRAZOLE 40 MG TABLET PO SCH (14:00)
[2017-12-12] MEDS ORDERED: DEXTROSE 50% 25 GM/50 ML VIAL IV PRN (14:01)
[2017-12-12] MEDS ORDERED: GLUCAGON 1 MG VIAL IM PRN (14:01)
[2017-12-12] MEDS ORDERED: POTASSIUM CHLORIDE 20 MEQ TABLET PO ONE (14:01)
[2017-12-12] MEDS ORDERED: METOPROLOL TARTRATE 5 MG/5 ML VIAL IV PRN (14:07)
[2017-12-12] MEDS ORDERED: METOPROLOL TARTRATE 5 MG/5 ML VIAL IV ONE (14:35)
[2017-12-12] MEDS: DILTIAZEM CD 120 MG CAPSULE PO SCH ×2 (16:26→21:02)
[2017-12-12] MEDS: VALSARTAN 160 MG TABLET PO SCH (16:27)
[2017-12-12] MEDS: PANTOPRAZOLE 40 MG TABLET PO SCH (16:37)
[2017-12-12] MEDS: SODIUM CHLORIDE 0.9% 1,000 ML IV SCH (16:38)
[2017-12-12] MEDS: SERTRALINE 25 MG TABLET PO SCH (16:38)
[2017-12-12] MEDS: ALLOPURINOL 100 MG TABLET PO SCH (16:38)
[2017-12-12] MEDS: INSULIN LISPRO 100 UNIT/ML SUBCUT SCH (16:51)
[2017-12-12] MEDS ORDERED: RACEPINEPHRINE 0.5 ML NEB RESP TX PRN (17:06)
[2017-12-12] MEDS ORDERED: cefTRIAXone 1,000 MG in SYRINGE 1 EACH IV SCH (18:00)
[2017-12-12] MEDS: RACEPINEPHRINE 0.5 ML NEB RESP TX SCH (18:12)
[2017-12-12] MEDS: MIRTAZAPINE 15 MG TABLET PO SCH (21:02)
[2017-12-12] MEDS: INSULIN GLARGINE 100 UNIT/ML SUBCUT SCH (21:02)
[2017-12-13] MEDS: diphenhydrAMINE CAP 25 MG CAPSULE PO PRN (00:04)
[2017-12-13] MEDS: SODIUM CHLORIDE 0.9% 1,000 ML IV SCH ×3 (01:15→14:00)
[2017-12-13 05:18] LABS: Basophils % 0.2 % (0.0-0.8); Hematocrit 31.3 VOL% (35.7-47.0); Hemoglobin 10.1 GM/DL (12.0-16.0); Immature Granulocytes % 0.3 %; Immature Granulocytes Absolute 0.03 #; Lymphocytes # 0.4 10*3/uL (1.4-4.0); Lymphocytes % 3.5 % (21.3-54.2); Mean Corpuscular HGB Conc 32.3 GM/DL (32-36); Mean Corpuscular Hemoglobin 27 PG (27-34); Mean Corpuscular Volume 82.6 FL (87-102); Mean Platelet Volume 11.9 FL (9.6-12.0); Monocytes # 0.3 10*3/uL (0.11-0.8); Neutrophils # 9.6 10*3/uL (1.4-7.4); Platelet Count 209 T/CUMM (130-400); Red Blood Count 3.79 MC/CUMM (3.8-5.5); Red Cell Distribution Width 14.6 % (9.3-17.3); White Blood Count 10.3 T/CUMM (4-12)
[2017-12-13 05:35] LABS: Calcium 8.9 MG/DL (8.5-10.1); Osmolality,Calculated 296.4 MOS/KG (273-304); Potassium 3.6 MMOL/L (3.5-5.1); Risk Ratio 2.6; Thyroid Stimulating Hormone 0.121 uIU/ml (0.358-3.74); VLDL CHOLESTEROL 10.6 MG/DL
[2017-12-13 06:53] LABS: Anisocytosis 1+; Band Neutrophils 4 % (0-10); Lymphocytes 3 % (20-55); Ovalocytes Few; Segmented Neutrophils 90 % (50-85); Target Cells Few; Total Cells Counted 100
[2017-12-13 06:54] LABS: Platelet Estimate Normal
[2017-12-13] MEDS: RACEPINEPHRINE 0.5 ML NEB RESP TX SCH ×2 (08:16→16:02)
[2017-12-13] MEDS: DILTIAZEM CD 120 MG CAPSULE PO SCH ×2 (08:31→21:28)
[2017-12-13] MEDS: PANTOPRAZOLE 40 MG TABLET PO SCH (08:31)
[2017-12-13] MEDS: VALSARTAN 160 MG TABLET PO SCH (08:31)
[2017-12-13] MEDS: SERTRALINE 25 MG TABLET PO SCH (08:32)
[2017-12-13] MEDS: ALLOPURINOL 100 MG TABLET PO SCH (08:32)
[2017-12-13] MEDS: INSULIN LISPRO 100 UNIT/ML SUBCUT SCH ×2 (08:37→16:52)
[2017-12-13] MEDS ORDERED: hydrOXYzine HCL 10 MG TABLET PO PRN (13:29)
[2017-12-13] MEDS: FUROSEMIDE 20 MG/2 ML VIAL IV SCH (16:19)
[2017-12-13] MEDS ORDERED: LEVOFLOXACIN INJ 500 MG in PREMIX 1 EACH IV ONE (16:30)
[2017-12-13] MEDS: CLINDAMYCIN INJ 300 MG in PREMIX 1 EACH IV SCH (18:04)
[2017-12-13] MEDS: INSULIN GLARGINE 100 UNIT/ML SUBCUT SCH (21:28)
[2017-12-13] MEDS: MIRTAZAPINE 15 MG TABLET PO SCH (21:28)
[2017-12-13] MEDS: ALPRAZolam 0.25 MG TABLET PO PRN (21:34)
[2017-12-14] MEDS: RACEPINEPHRINE 0.5 ML NEB RESP TX SCH ×3 (00:03→15:16)
[2017-12-14] MEDS: CLINDAMYCIN INJ 300 MG in PREMIX 1 EACH IV SCH ×3 (02:03→16:53)
[2017-12-14 05:09] LABS: Calcium 8.8 MG/DL (8.5-10.1); Osmolality,Calculated 298.4 MOS/KG (273-304); Potassium 3.6 MMOL/L (3.5-5.1)
[2017-12-14] MEDS: INSULIN LISPRO 100 UNIT/ML SUBCUT SCH ×2 (09:19→16:35)
[2017-12-14] MEDS: FUROSEMIDE 20 MG/2 ML VIAL IV SCH ×2 (09:19→16:35)
[2017-12-14] MEDS: DILTIAZEM CD 120 MG CAPSULE PO SCH (09:20)
[2017-12-14] MEDS: PANTOPRAZOLE 40 MG TABLET PO SCH (09:20)
[2017-12-14] MEDS: SERTRALINE 25 MG TABLET PO SCH (09:20)
[2017-12-14] MEDS: VALSARTAN 160 MG TABLET PO SCH (09:20)
[2017-12-14] MEDS: ALLOPURINOL 100 MG TABLET PO SCH (09:20)
[2017-12-14] MEDS ORDERED: LACTULOSE 20 GM/30 ML UDCUP PO PRN (13:06)
[2017-12-14] MEDS: cefTRIAXone 1,000 MG in SYRINGE 1 EACH IV SCH (14:43)
[2017-12-14] MEDS: METOPROLOL TARTRATE 5 MG/5 ML VIAL IV PRN (14:46)
[2017-12-14] MEDS ORDERED: LEVOFLOXACIN INJ 250 MG in PREMIX 1 EACH IV SCH (16:30)
[2017-12-14] MEDS: DILTIAZEM CD 180 MG CAPSULE PO SCH (21:22)
[2017-12-14] MEDS: MIRTAZAPINE 15 MG TABLET PO SCH (21:22)
[2017-12-14] MEDS: INSULIN GLARGINE 100 UNIT/ML SUBCUT SCH (21:24)
[2017-12-14] MEDS: ALPRAZolam 0.25 MG TABLET PO PRN (21:24)
[2017-12-15] MEDS: CLINDAMYCIN INJ 300 MG in PREMIX 1 EACH IV SCH ×3 (00:24→16:03)
[2017-12-15] MEDS: RACEPINEPHRINE 0.5 ML NEB RESP TX SCH ×2 (00:53→08:07)
[2017-12-15 05:32] LABS: Calcium 8.7 MG/DL (8.5-10.1); Osmolality,Calculated 291.5 MOS/KG (273-304); Potassium 3.4 MMOL/L (3.5-5.1)
[2017-12-15] MEDS: POTASSIUM CHLORIDE 20 MEQ TABLET PO PRN ×2 (06:23→21:34)
[2017-12-15] MEDS: SERTRALINE 25 MG TABLET PO SCH (08:47)
[2017-12-15] MEDS: PANTOPRAZOLE 40 MG TABLET PO SCH (08:47)
[2017-12-15] MEDS: DILTIAZEM CD 180 MG CAPSULE PO SCH ×2 (08:47→21:31)
[2017-12-15] MEDS: FUROSEMIDE 20 MG/2 ML VIAL IV SCH (08:47)
[2017-12-15] MEDS: ALLOPURINOL 100 MG TABLET PO SCH (08:47)
[2017-12-15] MEDS: VALSARTAN 160 MG TABLET PO SCH (08:47)
[2017-12-15] MEDS: INSULIN LISPRO 100 UNIT/ML SUBCUT SCH ×2 (08:54→16:49)
[2017-12-15] MEDS ORDERED: FUROSEMIDE 20 MG/2 ML VIAL IV ONE (09:38)
[2017-12-15] MEDS: FUROSEMIDE 40 MG/4 ML VIAL IV SCH ×2 (09:56→16:03)
[2017-12-15] MEDS: METOPROLOL TARTRATE 5 MG/5 ML VIAL IV PRN (11:47)
[2017-12-15] MEDS: cefTRIAXone 1,000 MG in SYRINGE 1 EACH IV SCH (13:14)
[2017-12-15] MEDS: ALBUTEROL/IPRATROPIUM 3 ML NEB RESP TX SCH ×2 (13:45→19:22)
[2017-12-15] MEDS: ALPRAZolam 0.25 MG TABLET PO PRN (21:31)
[2017-12-15] MEDS: MIRTAZAPINE 15 MG TABLET PO SCH (21:31)
[2017-12-15] MEDS: INSULIN GLARGINE 100 UNIT/ML SUBCUT SCH (21:34)
[2017-12-16] MEDS: CLINDAMYCIN INJ 300 MG in PREMIX 1 EACH IV SCH ×3 (00:01→16:14)
[2017-12-16] MEDS: POTASSIUM CHLORIDE 20 MEQ TABLET PO PRN (00:01)
[2017-12-16] MEDS: METOPROLOL TARTRATE 5 MG/5 ML VIAL IV PRN (01:00)
[2017-12-16] MEDS: ALBUTEROL/IPRATROPIUM 3 ML NEB RESP TX SCH ×4 (01:12→20:14)
[2017-12-16 05:12] LABS: Calcium 8.2 MG/DL (8.5-10.1); Osmolality,Calculated 290.7 MOS/KG (273-304); Potassium 4.1 MMOL/L (3.5-5.1)
[2017-12-16] MEDS: ALLOPURINOL 100 MG TABLET PO SCH (09:43)
[2017-12-16] MEDS: DILTIAZEM CD 180 MG CAPSULE PO SCH (09:43)
[2017-12-16] MEDS: VALSARTAN 160 MG TABLET PO SCH (09:43)
[2017-12-16] MEDS: SERTRALINE 25 MG TABLET PO SCH (09:43)
[2017-12-16] MEDS: PANTOPRAZOLE 40 MG TABLET PO SCH (09:43)
[2017-12-16] MEDS: INSULIN LISPRO 100 UNIT/ML SUBCUT SCH ×2 (09:43→16:13)
[2017-12-16] MEDS: FUROSEMIDE 40 MG/4 ML VIAL IV SCH ×2 (09:49→16:11)
[2017-12-16] MEDS: APIXABAN 2.5 MG TABLET PO SCH ×2 (11:36→20:58)
[2017-12-16] MEDS ORDERED: DILTIAZEM 50 MG/10 ML VIAL IV ONE (12:34)
[2017-12-16] MEDS: DILTIAZEM INJ 100 MG in SODIUM CHLORIDE 0.9% 100 ML IV SCH (13:00)
[2017-12-16] MEDS: cefTRIAXone 1,000 MG in SYRINGE 1 EACH IV SCH (13:31)
[2017-12-16] MEDS ORDERED: METOPROLOL TARTRATE 25 MG TABLET PO ONE (14:36)
[2017-12-16] MEDS: ALPRAZolam 0.25 MG TABLET PO PRN (20:57)
[2017-12-16] MEDS: MIRTAZAPINE 15 MG TABLET PO SCH (20:57)
[2017-12-16] MEDS: METOPROLOL TARTRATE 25 MG TABLET PO SCH (20:58)
[2017-12-16] MEDS: INSULIN GLARGINE 100 UNIT/ML SUBCUT SCH (21:00)
[2017-12-17] MEDS: CLINDAMYCIN INJ 300 MG in PREMIX 1 EACH IV SCH ×3 (00:54→16:56)
[2017-12-17] MEDS: ALBUTEROL/IPRATROPIUM 3 ML NEB RESP TX SCH ×4 (01:13→19:51)
[2017-12-17 05:00] LABS: Calcium 8.1 MG/DL (8.5-10.1); Osmolality,Calculated 286.8 MOS/KG (273-304); Potassium 3.6 MMOL/L (3.5-5.1)
[2017-12-17] MEDS: FUROSEMIDE 40 MG/4 ML VIAL IV SCH ×2 (09:11→09:16)
[2017-12-17] MEDS: INSULIN LISPRO 100 UNIT/ML SUBCUT SCH ×2 (09:11→17:30)
[2017-12-17] MEDS: ALLOPURINOL 100 MG TABLET PO SCH (09:12)
[2017-12-17] MEDS: SERTRALINE 25 MG TABLET PO SCH (09:12)
[2017-12-17] MEDS: APIXABAN 2.5 MG TABLET PO SCH ×2 (09:12→21:06)
[2017-12-17] MEDS: VALSARTAN 160 MG TABLET PO SCH (09:12)
[2017-12-17] MEDS: PANTOPRAZOLE 40 MG TABLET PO SCH (09:12)
[2017-12-17] MEDS: METOPROLOL TARTRATE 25 MG TABLET PO SCH (09:12)
[2017-12-17] MEDS ORDERED: METOPROLOL TARTRATE 25 MG TABLET PO ONE ×2 (09:16→09:19)
[2017-12-17] MEDS ORDERED: METOPROLOL TARTRATE 25 MG TABLET PO SCH (09:16)
[2017-12-17] MEDS ORDERED: POTASSIUM CHLORIDE 10 MEQ TABLET PO SCH (09:30)
[2017-12-17] MEDS ORDERED: MAGNESIUM CHLORIDE 64 MG TABLET PO SCH (09:30)
[2017-12-17] MEDS: ASCORBIC ACID 500 MG TABLET PO SCH ×2 (09:42→21:06)
[2017-12-17] MEDS ORDERED: BISOPROLOL 5 MG TABLET PO ONE (14:30)
[2017-12-17] MEDS: DILTIAZEM INJ 100 MG in SODIUM CHLORIDE 0.9% 100 ML IV SCH (14:55)
[2017-12-17] MEDS: cefTRIAXone 1,000 MG in SYRINGE 1 EACH IV SCH (14:55)
[2017-12-17] MEDS ORDERED: DILTIAZEM 50 MG/10 ML VIAL IV ONE (15:20)
[2017-12-17] MEDS ORDERED: DILTIAZEM 25 MG/5 ML VIAL IV ONE (15:30)
[2017-12-17] MEDS: DILTIAZEM 60 MG TABLET PO SCH ×3 (16:08→21:07)
[2017-12-17] MEDS ORDERED: METOPROLOL TARTRATE 50 MG TABLET PO SCH (21:00)
[2017-12-17] MEDS: INSULIN GLARGINE 100 UNIT/ML SUBCUT SCH (21:06)
[2017-12-17] MEDS: MIRTAZAPINE 15 MG TABLET PO SCH (21:07)
[2017-12-17] MEDS: ALPRAZolam 0.25 MG TABLET PO PRN (21:07)
[2017-12-17] MEDS: BISOPROLOL 5 MG TABLET PO SCH (21:07)
[2017-12-18] MEDS: ALBUTEROL/IPRATROPIUM 3 ML NEB RESP TX SCH ×4 (00:59→19:28)
[2017-12-18] MEDS: CLINDAMYCIN INJ 300 MG in PREMIX 1 EACH IV SCH ×2 (01:18→08:33)
[2017-12-18 05:15] LABS: Basophils % 0.3 % (0.0-0.8); Eosinophils # 0.5 10*3/uL (0.0-0.87); Eosinophils % 7.1 % (0.00-10.9); Hematocrit 33.7 VOL% (35.7-47.0); Hemoglobin 10.7 GM/DL (12.0-16.0); Immature Granulocytes % 0.8 %; Immature Granulocytes Absolute 0.06 #; Lymphocytes # 0.4 10*3/uL (1.4-4.0); Lymphocytes % 5.8 % (21.3-54.2); Mean Corpuscular HGB Conc 31.8 GM/DL (32-36); Mean Corpuscular Hemoglobin 26 PG (27-34); Mean Platelet Volume 11.6 FL (9.6-12.0); Monocytes # 0.4 10*3/uL (0.11-0.8); Monocytes % 5.3 % (1.7-12.7); Neutrophils % 80.7 % (38.7-73.9); Platelet Count 170 T/CUMM (130-400); Red Blood Count 4.11 MC/CUMM (3.8-5.5); Red Cell Distribution Width 15.1 % (9.3-17.3); White Blood Count 7.4 T/CUMM (4-12)
[2017-12-18 05:46] LABS: Calcium 8.1 MG/DL (8.5-10.1); Osmolality,Calculated 283.1 MOS/KG (273-304); Potassium 3.2 MMOL/L (3.5-5.1)
[2017-12-18] MEDS: POTASSIUM CHLORIDE 20 MEQ TABLET PO PRN ×2 (06:09→08:32)
[2017-12-18] MEDS: INSULIN LISPRO 100 UNIT/ML SUBCUT SCH ×2 (08:23→16:56)
[2017-12-18] MEDS: ASCORBIC ACID 500 MG TABLET PO SCH ×2 (08:32→21:34)
[2017-12-18] MEDS: DILTIAZEM 60 MG TABLET PO SCH (08:32)
[2017-12-18] MEDS: PANTOPRAZOLE 40 MG TABLET PO SCH (08:32)
[2017-12-18] MEDS: APIXABAN 2.5 MG TABLET PO SCH ×2 (08:32→21:34)
[2017-12-18] MEDS: ALLOPURINOL 100 MG TABLET PO SCH (08:32)
[2017-12-18] MEDS: BISOPROLOL 5 MG TABLET PO SCH ×2 (08:32→21:27)
[2017-12-18] MEDS: FUROSEMIDE 40 MG/4 ML VIAL IV SCH (08:33)
[2017-12-18] MEDS: SERTRALINE 25 MG TABLET PO SCH (08:33)
[2017-12-18] MEDS ORDERED: DILTIAZEM 60 MG TABLET PO ONE (12:54)
[2017-12-18] MEDS ORDERED: LACTATED RINGERS 250 ML IV ONE ×2 (12:54→14:52)
[2017-12-18] MEDS ORDERED: POTASSIUM CHLORIDE 20 MEQ TABLET PO ONE (13:05)
[2017-12-18] MEDS: DILTIAZEM 90 MG TABLET PO SCH ×3 (13:17→21:26)
[2017-12-18] MEDS: DILTIAZEM INJ 100 MG in SODIUM CHLORIDE 0.9% 100 ML IV SCH (13:42)
[2017-12-18] MEDS: cefTRIAXone 1,000 MG in SYRINGE 1 EACH IV SCH (13:57)
[2017-12-18] MEDS: INSULIN GLARGINE 100 UNIT/ML SUBCUT SCH (21:34)
[2017-12-18] MEDS: MIRTAZAPINE 15 MG TABLET PO SCH (21:34)
[2017-12-18] MEDS: VANCOMYCIN 50 MG/ML 60 ML/BOTTLE PO SCH (23:00)
[2017-12-19] MEDS: ALBUTEROL/IPRATROPIUM 3 ML NEB RESP TX SCH ×4 (01:24→19:31)
[2017-12-19 03:46] LABS: Basophils % 0.1 % (0.0-0.8); Eosinophils # 0.4 10*3/uL (0.0-0.87); Hematocrit 32.2 VOL% (35.7-47.0); Hemoglobin 9.9 GM/DL (12.0-16.0); Immature Granulocytes % 1.1 %; Immature Granulocytes Absolute 0.08 #; Lymphocytes # 0.6 10*3/uL (1.4-4.0); Lymphocytes % 7.7 % (21.3-54.2); Mean Corpuscular HGB Conc 30.7 GM/DL (32-36); Mean Corpuscular Hemoglobin 26 PG (27-34); Mean Corpuscular Volume 85.2 FL (87-102); Monocytes # 0.4 10*3/uL (0.11-0.8); Monocytes % 5.3 % (1.7-12.7); Neutrophils # 5.8 10*3/uL (1.4-7.4); Neutrophils % 80.8 % (38.7-73.9); Platelet Count 158 T/CUMM (130-400); Red Blood Count 3.78 MC/CUMM (3.8-5.5); Red Cell Distribution Width 15.1 % (9.3-17.3); White Blood Count 7.2 T/CUMM (4-12)
[2017-12-19] MEDS: METOPROLOL TARTRATE 5 MG/5 ML VIAL IV PRN (03:53)
[2017-12-19] MEDS ORDERED: DIGOXIN 0.5 MG/2 ML AMP IV ONE (04:07)
[2017-12-19] MEDS ORDERED: DILTIAZEM 100 MG VIAL.ADD IV ONE (04:43)
[2017-12-19] MEDS ORDERED: SODIUM CHLORIDE 0.9% 100 ML IV ONE (04:46)
[2017-12-19] MEDS: DILTIAZEM INJ 100 MG in SODIUM CHLORIDE 0.9% 100 ML IV SCH (04:51)
[2017-12-19 04:52] LABS: Calcium 8.2 MG/DL (8.5-10.1); Potassium 4.7 MMOL/L (3.5-5.1)
[2017-12-19] MEDS: INSULIN LISPRO 100 UNIT/ML SUBCUT SCH ×2 (07:59→16:42)
[2017-12-19] MEDS: DILTIAZEM 90 MG TABLET PO SCH ×4 (09:20→21:10)
[2017-12-19] MEDS: ASCORBIC ACID 500 MG TABLET PO SCH ×2 (09:20→21:10)
[2017-12-19] MEDS: LACTATED RINGERS 1,000 ML IV SCH ×2 (09:20→22:40)
[2017-12-19] MEDS: SERTRALINE 25 MG TABLET PO SCH (09:21)
[2017-12-19] MEDS: APIXABAN 2.5 MG TABLET PO SCH ×2 (09:21→21:10)
[2017-12-19] MEDS: ALLOPURINOL 100 MG TABLET PO SCH (09:21)
[2017-12-19] MEDS: PANTOPRAZOLE 40 MG TABLET PO SCH (09:21)
[2017-12-19] MEDS: BISOPROLOL 5 MG TABLET PO SCH ×2 (09:21→21:10)
[2017-12-19 16:13] LABS: Lymphocytes,Pleural Fluid 66 %; Monocytes,Pleural Fluid 6 %; Neutrophils,Pleural Fluid 26 %; RBC,Pleural Fluid 1142 T/CUMM
[2017-12-19 16:14] LABS: Eosinophils,Pleural Fluid 2 %
[2017-12-19] MEDS: INSULIN GLARGINE 100 UNIT/ML SUBCUT SCH (21:09)
[2017-12-19] MEDS: VANCOMYCIN 50 MG/ML 60 ML/BOTTLE PO SCH (21:10)
[2017-12-19] MEDS: MIRTAZAPINE 15 MG TABLET PO SCH (21:10)
[2017-12-20] MEDS: ALBUTEROL/IPRATROPIUM 3 ML NEB RESP TX SCH ×4 (00:16→19:38)
[2017-12-20] MEDS: VANCOMYCIN 50 MG/ML 60 ML/BOTTLE PO SCH ×4 (01:00→17:07)
[2017-12-20] MEDS: DILTIAZEM INJ 100 MG in SODIUM CHLORIDE 0.9% 100 ML IV SCH (04:28)
[2017-12-20 04:35] LABS: Calcium 7.7 MG/DL (8.5-10.1); Potassium 4.4 MMOL/L (3.5-5.1)
[2017-12-20] MEDS: INSULIN LISPRO 100 UNIT/ML SUBCUT SCH ×2 (08:19→17:06)
[2017-12-20] MEDS: ALBUMIN 25% 25 GM in PREMIX 1 EACH IV SCH ×2 (08:35→15:28)
[2017-12-20] MEDS: ALLOPURINOL 100 MG TABLET PO SCH (10:06)
[2017-12-20] MEDS: SERTRALINE 25 MG TABLET PO SCH (10:06)
[2017-12-20] MEDS: BISOPROLOL 5 MG TABLET PO SCH ×2 (10:06→21:51)
[2017-12-20] MEDS: ASCORBIC ACID 500 MG TABLET PO SCH ×2 (10:06→21:51)
[2017-12-20] MEDS: PANTOPRAZOLE 40 MG TABLET PO SCH (10:06)
[2017-12-20] MEDS: DILTIAZEM 90 MG TABLET PO SCH ×4 (10:07→21:51)
[2017-12-20] MEDS: APIXABAN 2.5 MG TABLET PO SCH ×2 (10:07→21:51)
[2017-12-20] MEDS: INSULIN GLARGINE 100 UNIT/ML SUBCUT SCH (21:51)
[2017-12-20] MEDS: MIRTAZAPINE 15 MG TABLET PO SCH (21:51)
[2017-12-21] MEDS: VANCOMYCIN 50 MG/ML 60 ML/BOTTLE PO SCH ×4 (00:20→17:08)
[2017-12-21] MEDS: ALBUTEROL/IPRATROPIUM 3 ML NEB RESP TX SCH ×4 (00:52→19:37)
[2017-12-21] MEDS: ALBUMIN 25% 25 GM in PREMIX 1 EACH IV SCH (02:35)
[2017-12-21 03:46] LABS: Albumin 3.2 G/DL (3.4-5.0); Bilirubin,Total 0.4 MG/DL (0.2-1.0); Calcium 8.4 MG/DL (8.5-10.1); Potassium 4.4 MMOL/L (3.5-5.1); Total Protein 5.8 G/DL (6.4-8.3)
[2017-12-21] MEDS: DILTIAZEM INJ 100 MG in SODIUM CHLORIDE 0.9% 100 ML IV SCH (05:35)
[2017-12-21] MEDS: INSULIN LISPRO 100 UNIT/ML SUBCUT SCH ×2 (09:03→16:37)
[2017-12-21] MEDS: guaiFENesin/DM ER 600-30 MG TABLET PO PRN ×2 (09:04→20:55)
[2017-12-21] MEDS: APIXABAN 2.5 MG TABLET PO SCH ×2 (09:05→20:55)
[2017-12-21] MEDS: SERTRALINE 25 MG TABLET PO SCH (09:05)
[2017-12-21] MEDS: PANTOPRAZOLE 40 MG TABLET PO SCH (09:05)
[2017-12-21] MEDS: DILTIAZEM 90 MG TABLET PO SCH ×4 (09:05→20:55)
[2017-12-21] MEDS: ASCORBIC ACID 500 MG TABLET PO SCH ×2 (09:05→20:55)
[2017-12-21] MEDS: ALLOPURINOL 100 MG TABLET PO SCH (09:05)
[2017-12-21] MEDS: BISOPROLOL 5 MG TABLET PO SCH ×2 (09:05→20:55)
[2017-12-21] MEDS: BENZONATATE 100 MG CAPSULE PO PRN ×2 (09:05→20:55)
[2017-12-21] MEDS: ALPRAZolam 0.25 MG TABLET PO PRN ×2 (13:46→20:55)
[2017-12-21] MEDS ORDERED: ALBUTEROL/IPRATROPIUM 3 ML NEB RESP TX PRN (14:01)
[2017-12-21] MEDS: MIRTAZAPINE 15 MG TABLET PO SCH (20:55)
[2017-12-21] MEDS: INSULIN GLARGINE 100 UNIT/ML SUBCUT SCH (20:55)
[2017-12-22] MEDS: VANCOMYCIN 50 MG/ML 60 ML/BOTTLE PO SCH ×4 (00:30→17:32)
[2017-12-22] MEDS: ALBUTEROL/IPRATROPIUM 3 ML NEB RESP TX SCH ×4 (00:44→19:50)
[2017-12-22] MEDS: ALPRAZolam 0.25 MG TABLET PO PRN (02:35)
[2017-12-22] MEDS: BENZONATATE 100 MG CAPSULE PO PRN ×2 (02:35→08:27)
[2017-12-22] MEDS: DILTIAZEM INJ 100 MG in SODIUM CHLORIDE 0.9% 100 ML IV SCH (04:24)
[2017-12-22] MEDS: DILTIAZEM 90 MG TABLET PO SCH ×4 (08:27→21:30)
[2017-12-22] MEDS: SERTRALINE 25 MG TABLET PO SCH (08:27)
[2017-12-22] MEDS: BISOPROLOL 5 MG TABLET PO SCH ×2 (08:27→21:31)
[2017-12-22] MEDS: PANTOPRAZOLE 40 MG TABLET PO SCH (08:27)
[2017-12-22] MEDS: ASCORBIC ACID 500 MG TABLET PO SCH ×2 (08:27→21:30)
[2017-12-22] MEDS: APIXABAN 2.5 MG TABLET PO SCH ×2 (08:27→21:31)
[2017-12-22] MEDS: INSULIN LISPRO 100 UNIT/ML SUBCUT SCH ×2 (08:28→17:07)
[2017-12-22] MEDS: ALLOPURINOL 100 MG TABLET PO SCH (08:28)
[2017-12-22] MEDS ORDERED: FUROSEMIDE 40 MG/4 ML VIAL IV SCH (09:00)
[2017-12-22] MEDS: FUROSEMIDE 40 MG/4 ML VIAL IV SCH (16:59)
[2017-12-22] MEDS: MIRTAZAPINE 15 MG TABLET PO SCH (21:30)
[2017-12-22] MEDS: INSULIN GLARGINE 100 UNIT/ML SUBCUT SCH (21:31)
[2017-12-23] MEDS: VANCOMYCIN 50 MG/ML 60 ML/BOTTLE PO SCH ×4 (00:05→17:19)
[2017-12-23] MEDS: ALBUTEROL/IPRATROPIUM 3 ML NEB RESP TX SCH ×4 (01:15→19:26)
[2017-12-23 05:00] LABS: Basophils % 0.1 % (0.0-0.8); Eosinophils # 0.3 10*3/uL (0.0-0.87); Eosinophils % 3.7 % (0.00-10.9); Hematocrit 27.5 VOL% (35.7-47.0); Hemoglobin 8.7 GM/DL (12.0-16.0); Immature Granulocytes Absolute 0.07 #; Lymphocytes # 0.9 10*3/uL (1.4-4.0); Lymphocytes % 12.6 % (21.3-54.2); Mean Corpuscular HGB Conc 31.6 GM/DL (32-36); Mean Corpuscular Hemoglobin 26 PG (27-34); Mean Corpuscular Volume 82.3 FL (87-102); Mean Platelet Volume 12.7 FL (9.6-12.0); Monocytes # 0.7 10*3/uL (0.11-0.8); Monocytes % 9.6 % (1.7-12.7); Neutrophils # 5.1 10*3/uL (1.4-7.4); Platelet Count 143 T/CUMM (130-400); Red Blood Count 3.34 MC/CUMM (3.8-5.5); Red Cell Distribution Width 15.9 % (9.3-17.3); White Blood Count 7.1 T/CUMM (4-12)
[2017-12-23 05:15] LABS: Calcium 8.4 MG/DL (8.5-10.1); Osmolality,Calculated 283.7 MOS/KG (273-304); Potassium 3.6 MMOL/L (3.5-5.1)
[2017-12-23] MEDS: DILTIAZEM 90 MG TABLET PO SCH ×5 (05:35→21:49)
[2017-12-23] MEDS: DILTIAZEM INJ 100 MG in SODIUM CHLORIDE 0.9% 100 ML IV SCH (06:01)
[2017-12-23] MEDS: BENZONATATE 100 MG CAPSULE PO PRN (08:15)
[2017-12-23] MEDS: ALLOPURINOL 100 MG TABLET PO SCH (08:16)
[2017-12-23] MEDS: SERTRALINE 25 MG TABLET PO SCH (08:16)
[2017-12-23] MEDS: BISOPROLOL 5 MG TABLET PO SCH ×2 (08:16→21:49)
[2017-12-23] MEDS: PANTOPRAZOLE 40 MG TABLET PO SCH (08:16)
[2017-12-23] MEDS: APIXABAN 2.5 MG TABLET PO SCH ×2 (08:16→21:49)
[2017-12-23] MEDS: ASCORBIC ACID 500 MG TABLET PO SCH ×2 (08:16→21:49)
[2017-12-23] MEDS: INSULIN LISPRO 100 UNIT/ML SUBCUT SCH ×2 (08:16→17:11)
[2017-12-23] MEDS: FUROSEMIDE 40 MG/4 ML VIAL IV SCH ×2 (08:17→17:11)
[2017-12-23] MEDS: metOLazone 5 MG TABLET PO SCH (09:42)
[2017-12-23] MEDS: MIRTAZAPINE 15 MG TABLET PO SCH (21:50)
[2017-12-23] MEDS: INSULIN GLARGINE 100 UNIT/ML SUBCUT SCH (21:50)
[2017-12-24] MEDS: VANCOMYCIN 50 MG/ML 60 ML/BOTTLE PO SCH ×4 (00:15→17:22)
[2017-12-24] MEDS: ALBUTEROL/IPRATROPIUM 3 ML NEB RESP TX SCH ×4 (02:12→19:30)
[2017-12-24] MEDS: DILTIAZEM INJ 100 MG in SODIUM CHLORIDE 0.9% 100 ML IV SCH (04:22)
[2017-12-24] MEDS: INSULIN LISPRO 100 UNIT/ML SUBCUT SCH ×2 (09:45→17:22)
[2017-12-24] MEDS: BISOPROLOL 5 MG TABLET PO SCH ×2 (09:45→21:07)
[2017-12-24] MEDS: PANTOPRAZOLE 40 MG TABLET PO SCH (09:45)
[2017-12-24] MEDS: metOLazone 5 MG TABLET PO SCH (09:45)
[2017-12-24] MEDS: DILTIAZEM 90 MG TABLET PO SCH ×4 (09:45→21:07)
[2017-12-24] MEDS: SERTRALINE 25 MG TABLET PO SCH (09:45)
[2017-12-24] MEDS: ASCORBIC ACID 500 MG TABLET PO SCH ×2 (09:45→21:06)
[2017-12-24] MEDS: ALLOPURINOL 100 MG TABLET PO SCH (09:45)
[2017-12-24] MEDS: APIXABAN 2.5 MG TABLET PO SCH ×2 (09:45→21:07)
[2017-12-24] MEDS: FUROSEMIDE 40 MG/4 ML VIAL IV SCH (09:46)
[2017-12-24] MEDS: FUROSEMIDE 80 MG TABLET PO SCH (17:22)
[2017-12-24] MEDS: INSULIN GLARGINE 100 UNIT/ML SUBCUT SCH (21:06)
[2017-12-24] MEDS: MIRTAZAPINE 15 MG TABLET PO SCH (21:07)
[2017-12-25] MEDS: VANCOMYCIN 50 MG/ML 60 ML/BOTTLE PO SCH ×4 (00:02→17:00)
[2017-12-25] MEDS: diphenhydrAMINE CAP 25 MG CAPSULE PO PRN ×2 (00:05→21:33)
[2017-12-25] MEDS: ALBUTEROL/IPRATROPIUM 3 ML NEB RESP TX SCH ×4 (00:15→20:32)
[2017-12-25 04:13] LABS: Basophils % 0.5 % (0.0-0.8); Eosinophils # 0.2 10*3/uL (0.0-0.87); Eosinophils % 2.8 % (0.00-10.9); Hematocrit 28.6 VOL% (35.7-47.0); Immature Granulocytes Absolute 0.06 #; Lymphocytes # 1.1 10*3/uL (1.4-4.0); Lymphocytes % 18.6 % (21.3-54.2); Mean Corpuscular HGB Conc 31.5 GM/DL (32-36); Mean Corpuscular Hemoglobin 26 PG (27-34); Mean Corpuscular Volume 82.4 FL (87-102); Mean Platelet Volume 12.7 FL (9.6-12.0); Monocytes # 0.6 10*3/uL (0.11-0.8); Monocytes % 9.2 % (1.7-12.7); Neutrophils # 4.2 10*3/uL (1.4-7.4); Neutrophils % 67.9 % (38.7-73.9); Platelet Count 193 T/CUMM (130-400); Red Blood Count 3.47 MC/CUMM (3.8-5.5); Red Cell Distribution Width 15.8 % (9.3-17.3); White Blood Count 6.1 T/CUMM (4-12)
[2017-12-25] MEDS: DILTIAZEM INJ 100 MG in SODIUM CHLORIDE 0.9% 100 ML IV SCH (04:17)
[2017-12-25 04:49] LABS: Calcium 8.4 MG/DL (8.5-10.1); Osmolality,Calculated 282.8 MOS/KG (273-304); Potassium 3.1 MMOL/L (3.5-5.1)
[2017-12-25] MEDS: POTASSIUM CHLORIDE 20 MEQ TABLET PO PRN ×2 (05:00→06:49)
[2017-12-25] MEDS: INSULIN LISPRO 100 UNIT/ML SUBCUT SCH ×2 (08:25→17:16)
[2017-12-25] MEDS ORDERED: POTASSIUM CHLORIDE 20 MEQ TABLET PO ONE (08:30)
[2017-12-25] MEDS: APIXABAN 2.5 MG TABLET PO SCH ×2 (10:02→21:32)
[2017-12-25] MEDS: FUROSEMIDE 80 MG TABLET PO SCH ×2 (10:03→16:46)
[2017-12-25] MEDS: metOLazone 5 MG TABLET PO SCH (10:03)
[2017-12-25] MEDS: BISOPROLOL 5 MG TABLET PO SCH ×2 (10:03→21:32)
[2017-12-25] MEDS: DILTIAZEM 90 MG TABLET PO SCH ×4 (10:03→21:32)
[2017-12-25] MEDS: ASCORBIC ACID 500 MG TABLET PO SCH ×2 (10:03→21:33)
[2017-12-25] MEDS: ALLOPURINOL 100 MG TABLET PO SCH (10:04)
[2017-12-25] MEDS: PANTOPRAZOLE 40 MG TABLET PO SCH (10:04)
[2017-12-25] MEDS: SERTRALINE 25 MG TABLET PO SCH (10:04)
[2017-12-25] MEDS: INSULIN GLARGINE 100 UNIT/ML SUBCUT SCH (21:31)
[2017-12-25] MEDS: MIRTAZAPINE 15 MG TABLET PO SCH (21:32)
[2017-12-26] MEDS: diphenhydrAMINE CAP 25 MG CAPSULE PO PRN (01:03)
[2017-12-26] MEDS: VANCOMYCIN 50 MG/ML 60 ML/BOTTLE PO SCH ×3 (01:03→12:25)
[2017-12-26] MEDS: ALBUTEROL/IPRATROPIUM 3 ML NEB RESP TX SCH ×2 (01:58→07:00)
[2017-12-26] MEDS: DILTIAZEM INJ 100 MG in SODIUM CHLORIDE 0.9% 100 ML IV SCH (05:13)
[2017-12-26 05:15] LABS: Calcium 8.4 MG/DL (8.5-10.1); Osmolality,Calculated 286.7 MOS/KG (273-304); Potassium 3.2 MMOL/L (3.5-5.1)
[2017-12-26] MEDS: INSULIN LISPRO 100 UNIT/ML SUBCUT SCH (08:01)
[2017-12-26] MEDS: metOLazone 5 MG TABLET PO SCH (08:02)
[2017-12-26] MEDS: PANTOPRAZOLE 40 MG TABLET PO SCH (08:02)
[2017-12-26] MEDS: FUROSEMIDE 80 MG TABLET PO SCH (08:02)
[2017-12-26] MEDS: DILTIAZEM 90 MG TABLET PO SCH ×2 (08:02→12:29)
[2017-12-26] MEDS: POTASSIUM CHLORIDE 20 MEQ TABLET PO PRN ×2 (08:02→12:30)
[2017-12-26] MEDS: BENZONATATE 100 MG CAPSULE PO PRN (08:02)
[2017-12-26] MEDS: SERTRALINE 25 MG TABLET PO SCH (08:02)
[2017-12-26] MEDS: BISOPROLOL 5 MG TABLET PO SCH (08:02)
[2017-12-26] MEDS: ASCORBIC ACID 500 MG TABLET PO SCH (08:02)
[2017-12-26] MEDS: ALLOPURINOL 100 MG TABLET PO SCH (08:03)
[2017-12-26] MEDS: APIXABAN 2.5 MG TABLET PO SCH (08:03)
[2017-12-26] MEDS ORDERED: POTASSIUM CHLORIDE 10 MEQ TABLET PO SCH (09:00)
[2017-12-26 12:04] VITALS: BP 133/71
== END 2017-12-26 12:53 | disposition home health service (06) | DRG 193 ==
LOC: N.ED 09:44 → N.EDINP 13:05 → SUATTDRO 13:05 → N.EDINP 15:41 → N.2W 15:43 → N.TELEN 16:59
PROVIDERS: ADMIT Internal Medicine; ATTEND Internal Medicine

== ENCOUNTER 2018-01-30 22:11 | Inpatient (IN) ==
[2018-01-31] MEDS ORDERED: FUROSEMIDE 100 MG/10 ML VIAL IV STA (00:14)
[2018-01-31] MEDS ORDERED: ALBUTEROL/IPRATROPIUM 3 ML NEB RESP TX STA (00:14)
[2018-01-31 00:40] LABS: Basophils % 0.2 % (0.0-0.8); Eosinophils # 0.1 10*3/uL (0.0-0.87); Eosinophils % 1.1 % (0.00-10.9); Hematocrit 29.9 VOL% (35.7-47.0); Hemoglobin 9.1 GM/DL (12.0-16.0); Immature Granulocytes % 0.7 %; Immature Granulocytes Absolute 0.06 #; Lymphocytes # 0.8 10*3/uL (1.4-4.0); Lymphocytes % 9.5 % (21.3-54.2); Mean Corpuscular HGB Conc 30.4 GM/DL (32-36); Mean Corpuscular Hemoglobin 26 PG (27-34); Mean Corpuscular Volume 85.4 FL (87-102); Monocytes # 0.7 10*3/uL (0.11-0.8); Monocytes % 7.9 % (1.7-12.7); Neutrophils # 7.1 10*3/uL (1.4-7.4); Neutrophils % 80.6 % (38.7-73.9); Platelet Count 175 T/CUMM (130-400); Red Cell Distribution Width 17.3 % (9.3-17.3); White Blood Count 8.9 T/CUMM (4-12)
[2018-01-31 00:44] LABS: ABG Base Excess -3.4 MMOL/L (-2.5-2.5); ABG HCO3 21.6 MMOL/L (20-26); ABG Oxygen Saturation 96.5 % (95-100); ABG PCO2 38.4 MM HG (35-48); ABG PO2 88.4 MM HG (80-95); ABG TCO2 20.1 MMOL/L (23-27); Allen Test Positive
[2018-01-31 00:58] LABS: Albumin 3.1 G/DL (3.4-5.0); Bilirubin,Total 0.4 MG/DL (0.2-1.0); Calcium 8.6 MG/DL (8.5-10.1); Osmolality,Calculated 287.4 MOS/KG (273-304); Potassium 4.2 MMOL/L (3.5-5.1); Total Protein 6.8 G/DL (6.4-8.3); Troponin I Only 0.018 NG/ML (0.00-0.045)
[2018-01-31] MEDS ORDERED: GLUCAGON 1 MG VIAL IM PRN (04:09)
[2018-01-31] MEDS ORDERED: ONDANSETRON 4 MG/2 ML VIAL IV PRN (04:09)
[2018-01-31] MEDS ORDERED: DEXTROSE 50% 25 GM/50 ML VIAL IV PRN (04:09)
[2018-01-31 04:39] LABS: Apearance,Urine CLEAR (Clear); Bilirubin,Urine Negative (Negative); Blood, Urine Negative (Negative); Glucose,Urine (UA) Negative (Negative); Hyaline Casts,Urine 5 /LPF (0-3); Ketones,Urine Negative (Negative); Mucus,Urine Occasional /LPF (Occasional); Nitrite,Urine Negative (Negative); Protein,Urine 30 MG/DL; RBC,Urine 1 /HPF (0-4); Squamous Epithelial Cell,Urine Occasional /HPF (0-10); Urine Color Straw (Yellow); Urine Specific Gravity 1.005 (1.001-1.035); Urine Urobilinogen < 2.0 EU/DL (0.2-1.0); WBC,Urine 2 /HPF (0-6)
[2018-01-31] MEDS: ALBUTEROL/IPRATROPIUM 3 ML NEB RESP TX SCH ×5 (07:50→22:54)
[2018-01-31] MEDS: INSULIN LISPRO 100 UNIT/ML SUBCUT SCH ×4 (10:56→20:35)
[2018-01-31] MEDS: PANTOPRAZOLE 40 MG TABLET PO SCH (10:56)
[2018-01-31] MEDS: BUDESONIDE/FORMOTEROL 160-4.5 INHALER 6 GM INH SCH ×2 (12:45→20:39)
[2018-01-31] MEDS: DILTIAZEM 90 MG TABLET PO SCH ×3 (15:53→20:35)
[2018-01-31] MEDS: FUROSEMIDE 40 MG/4 ML VIAL IV SCH (15:54)
[2018-01-31] MEDS: ASCORBIC ACID 500 MG TABLET PO SCH (20:33)
[2018-01-31] MEDS: APIXABAN 2.5 MG TABLET PO SCH (20:34)
[2018-01-31] MEDS: BISOPROLOL 5 MG TABLET PO SCH (20:34)
[2018-01-31] MEDS: INSULIN GLARGINE 100 UNIT/ML SUBCUT SCH (20:35)
[2018-01-31] MEDS: MIRTAZAPINE 15 MG TABLET PO SCH (20:35)
[2018-02-01] MEDS: ALBUTEROL/IPRATROPIUM 3 ML NEB RESP TX SCH ×6 (02:32→23:37)
[2018-02-01 05:02] LABS: Basophils % 0.1 % (0.0-0.8); Eosinophils # 0.2 10*3/uL (0.0-0.87); Eosinophils % 2.3 % (0.00-10.9); Hematocrit 26.3 VOL% (35.7-47.0); Hemoglobin 8.3 GM/DL (12.0-16.0); Immature Granulocytes % 0.6 %; Immature Granulocytes Absolute 0.04 #; Lymphocytes # 0.8 10*3/uL (1.4-4.0); Lymphocytes % 11.7 % (21.3-54.2); Mean Corpuscular HGB Conc 31.6 GM/DL (32-36); Mean Corpuscular Hemoglobin 26 PG (27-34); Mean Corpuscular Volume 81.7 FL (87-102); Mean Platelet Volume 12.2 FL (9.6-12.0); Monocytes # 0.5 10*3/uL (0.11-0.8); Monocytes % 7.3 % (1.7-12.7); Neutrophils # 5.3 10*3/uL (1.4-7.4); Platelet Count 166 T/CUMM (130-400); Red Blood Count 3.22 MC/CUMM (3.8-5.5); Red Cell Distribution Width 17.2 % (9.3-17.3); White Blood Count 6.8 T/CUMM (4-12)
[2018-02-01 05:35] LABS: Calcium 8.5 MG/DL (8.5-10.1); Potassium 3.3 MMOL/L (3.5-5.1)
[2018-02-01] MEDS: BISOPROLOL 5 MG TABLET PO SCH ×2 (08:49→21:52)
[2018-02-01] MEDS: INSULIN LISPRO 100 UNIT/ML SUBCUT SCH ×4 (08:49→21:53)
[2018-02-01] MEDS: APIXABAN 2.5 MG TABLET PO SCH ×2 (08:50→21:52)
[2018-02-01] MEDS: PANTOPRAZOLE 40 MG TABLET PO SCH (08:50)
[2018-02-01] MEDS: ALLOPURINOL 100 MG TABLET PO SCH (08:50)
[2018-02-01] MEDS: IRBESARTAN 150 MG TABLET PO SCH (08:50)
[2018-02-01] MEDS: ASCORBIC ACID 500 MG TABLET PO SCH ×2 (08:50→21:51)
[2018-02-01] MEDS: SERTRALINE 25 MG TABLET PO SCH (08:50)
[2018-02-01] MEDS: DILTIAZEM 90 MG TABLET PO SCH ×4 (08:51→21:52)
[2018-02-01] MEDS: POTASSIUM CHLORIDE 20 MEQ TABLET PO SCH (08:51)
[2018-02-01] MEDS: FUROSEMIDE 40 MG/4 ML VIAL IV SCH ×2 (08:52→16:49)
[2018-02-01] MEDS: BUDESONIDE/FORMOTEROL 160-4.5 INHALER 6 GM INH SCH ×2 (11:23→21:53)
[2018-02-01] MEDS: methylPREDNISolone SOD SUC 125 MG/2 ML VIAL IV SCH (16:47)
[2018-02-01] MEDS: MIRTAZAPINE 15 MG TABLET PO SCH (21:52)
[2018-02-01] MEDS: INSULIN GLARGINE 100 UNIT/ML SUBCUT SCH (21:53)
[2018-02-02] MEDS: methylPREDNISolone SOD SUC 125 MG/2 ML VIAL IV SCH ×4 (00:22→23:54)
[2018-02-02] MEDS: ALBUTEROL/IPRATROPIUM 3 ML NEB RESP TX SCH ×4 (03:26→19:28)
[2018-02-02 05:00] LABS: Hematocrit 28.5 VOL% (35.7-47.0); Hemoglobin 8.7 GM/DL (12.0-16.0); Immature Granulocytes % 0.5 %; Immature Granulocytes Absolute 0.03 #; Lymphocytes # 0.3 10*3/uL (1.4-4.0); Mean Corpuscular HGB Conc 30.5 GM/DL (32-36); Mean Corpuscular Hemoglobin 26 PG (27-34); Mean Corpuscular Volume 83.8 FL (87-102); Mean Platelet Volume 12.2 FL (9.6-12.0); Monocytes % 0.5 % (1.7-12.7); Neutrophils # 5.4 10*3/uL (1.4-7.4); Platelet Count 183 T/CUMM (130-400); Red Cell Distribution Width 17.5 % (9.3-17.3); White Blood Count 5.8 T/CUMM (4-12)
[2018-02-02 05:23] LABS: Albumin 3.2 G/DL (3.4-5.0); Bilirubin,Total 0.7 MG/DL (0.2-1.0); Calcium 9.1 MG/DL (8.5-10.1); Osmolality,Calculated 285.8 MOS/KG (273-304); Potassium 5.3 MMOL/L (3.5-5.1)
[2018-02-02 05:43] LABS: Band Neutrophils 2 % (0-10); Lymphocytes 6 % (20-55); Segmented Neutrophils 90 % (50-85); Total Cells Counted 100
[2018-02-02 05:45] LABS: Hypochromasia 1+; Microcytosis 1+; Ovalocytes Slight
[2018-02-02 05:46] LABS: Platelet Estimate Adequate
[2018-02-02] MEDS: IRBESARTAN 150 MG TABLET PO SCH (10:19)
[2018-02-02] MEDS: ALLOPURINOL 100 MG TABLET PO SCH (10:19)
[2018-02-02] MEDS: PANTOPRAZOLE 40 MG TABLET PO SCH (10:19)
[2018-02-02] MEDS: ASCORBIC ACID 500 MG TABLET PO SCH ×2 (10:20→21:17)
[2018-02-02] MEDS: DILTIAZEM 90 MG TABLET PO SCH ×4 (10:20→21:18)
[2018-02-02] MEDS: INSULIN LISPRO 100 UNIT/ML SUBCUT SCH ×4 (10:20→21:18)
[2018-02-02] MEDS: SERTRALINE 25 MG TABLET PO SCH (10:20)
[2018-02-02] MEDS: APIXABAN 2.5 MG TABLET PO SCH ×2 (10:21→21:17)
[2018-02-02] MEDS: BISOPROLOL 5 MG TABLET PO SCH ×2 (10:21→21:18)
[2018-02-02] MEDS: BUDESONIDE/FORMOTEROL 160-4.5 INHALER 6 GM INH SCH ×2 (10:21→21:31)
[2018-02-02 10:24] LABS: % Iron Saturation 10.2 % (18-50); Ferritin 56.6 ng/ml (8-252); Folate 17.9 NG/ML (5.4-24.0)
[2018-02-02] MEDS: FUROSEMIDE 40 MG/4 ML VIAL IV SCH ×2 (10:25→17:29)
[2018-02-02] MEDS: MIRTAZAPINE 15 MG TABLET PO SCH (21:17)
[2018-02-02] MEDS: DOCUSATE SODIUM 100 MG CAPSULE PO SCH (21:17)
[2018-02-02] MEDS: INSULIN GLARGINE 100 UNIT/ML SUBCUT SCH (21:19)
[2018-02-02] MEDS: FERROUS SULFATE 325 MG TABLET PO SCH (21:31)
[2018-02-03] MEDS: ALBUTEROL/IPRATROPIUM 3 ML NEB RESP TX SCH ×4 (00:43→20:39)
[2018-02-03 04:05] LABS: Basophils % 0.2 % (0.0-0.8); Hematocrit 25.9 VOL% (35.7-47.0); Hemoglobin 8.1 GM/DL (12.0-16.0); Immature Granulocytes % 0.9 %; Immature Granulocytes Absolute 0.11 #; Lymphocytes # 0.4 10*3/uL (1.4-4.0); Lymphocytes % 2.8 % (21.3-54.2); Mean Corpuscular HGB Conc 31.3 GM/DL (32-36); Mean Corpuscular Hemoglobin 26 PG (27-34); Mean Corpuscular Volume 82.7 FL (87-102); Mean Platelet Volume 11.3 FL (9.6-12.0); Monocytes # 0.3 10*3/uL (0.11-0.8); Neutrophils # 12.1 10*3/uL (1.4-7.4); Neutrophils % 94.1 % (38.7-73.9); Platelet Count 170 T/CUMM (130-400); Red Blood Count 3.13 MC/CUMM (3.8-5.5); Red Cell Distribution Width 17.6 % (9.3-17.3); White Blood Count 12.8 T/CUMM (4-12)
[2018-02-03 04:18] LABS: Albumin 3.1 G/DL (3.4-5.0); Bilirubin,Total 0.6 MG/DL (0.2-1.0); Calcium 8.9 MG/DL (8.5-10.1); Osmolality,Calculated 288.8 MOS/KG (273-304); Potassium 4.6 MMOL/L (3.5-5.1); Total Protein 6.4 G/DL (6.4-8.3)
[2018-02-03 04:49] LABS: Band Neutrophils 2 % (0-10); Lymphocytes 4 % (20-55); Platelet Estimate Normal; Segmented Neutrophils 92 % (50-85); Total Cells Counted 100
[2018-02-03 04:50] LABS: Anisocytosis Slight; Hypochromasia 2+; Macrocytosis Slight
[2018-02-03] MEDS: INSULIN LISPRO 100 UNIT/ML SUBCUT SCH ×4 (09:16→21:00)
[2018-02-03] MEDS: DILTIAZEM 90 MG TABLET PO SCH ×4 (09:17→20:58)
[2018-02-03] MEDS: IRBESARTAN 150 MG TABLET PO SCH (09:17)
[2018-02-03] MEDS: BUDESONIDE/FORMOTEROL 160-4.5 INHALER 6 GM INH SCH ×2 (09:18→20:59)
[2018-02-03] MEDS: POLYETHYLENE GLYCOL POWDER 17 GM PACK PO SCH (09:18)
[2018-02-03] MEDS: PANTOPRAZOLE 40 MG TABLET PO SCH (09:18)
[2018-02-03] MEDS: FERROUS SULFATE 325 MG TABLET PO SCH ×2 (09:18→20:58)
[2018-02-03] MEDS: APIXABAN 2.5 MG TABLET PO SCH ×2 (09:18→20:59)
[2018-02-03] MEDS: ALLOPURINOL 100 MG TABLET PO SCH (09:19)
[2018-02-03] MEDS: SERTRALINE 25 MG TABLET PO SCH (09:19)
[2018-02-03] MEDS: DOXYCYCLINE HYCLATE 100 MG CAPSULE PO SCH ×2 (09:19→20:59)
[2018-02-03] MEDS: BISOPROLOL 5 MG TABLET PO SCH ×2 (09:19→20:59)
[2018-02-03] MEDS: ASCORBIC ACID 500 MG TABLET PO SCH ×2 (09:19→20:58)
[2018-02-03] MEDS: methylPREDNISolone SOD SUC 40 MG/1 ML VIAL IV SCH ×2 (09:25→19:13)
[2018-02-03] MEDS: FUROSEMIDE 40 MG/4 ML VIAL IV SCH (09:29)
[2018-02-03] MEDS: POTASSIUM CHLORIDE 20 MEQ TABLET PO SCH (09:34)
[2018-02-03] MEDS: INSULIN GLARGINE 100 UNIT/ML SUBCUT SCH (20:57)
[2018-02-03] MEDS: DOCUSATE SODIUM 100 MG CAPSULE PO SCH (20:58)
[2018-02-03] MEDS: MIRTAZAPINE 15 MG TABLET PO SCH (20:59)
[2018-02-04] MEDS: ALBUTEROL/IPRATROPIUM 3 ML NEB RESP TX SCH ×4 (00:04→19:00)
[2018-02-04 04:24] LABS: Basophils % 0.1 % (0.0-0.8); Hematocrit 24.6 VOL% (35.7-47.0); Hemoglobin 7.7 GM/DL (12.0-16.0); Immature Granulocytes % 0.8 %; Lymphocytes # 0.3 10*3/uL (1.4-4.0); Lymphocytes % 2.2 % (21.3-54.2); Mean Corpuscular HGB Conc 31.3 GM/DL (32-36); Mean Corpuscular Hemoglobin 26 PG (27-34); Mean Corpuscular Volume 82.6 FL (87-102); Mean Platelet Volume 11.5 FL (9.6-12.0); Monocytes # 0.1 10*3/uL (0.11-0.8); Monocytes % 1.1 % (1.7-12.7); Neutrophils # 12.6 10*3/uL (1.4-7.4); Neutrophils % 95.8 % (38.7-73.9); Platelet Count 184 T/CUMM (130-400); Red Blood Count 2.98 MC/CUMM (3.8-5.5); Red Cell Distribution Width 17.6 % (9.3-17.3); White Blood Count 13.1 T/CUMM (4-12)
[2018-02-04 04:59] LABS: Hypochromasia 1+; Lymphocytes 3 % (20-55); Platelet Estimate Normal; Segmented Neutrophils 97 % (50-85); Total Cells Counted 100
[2018-02-04 05:13] LABS: Albumin 3.1 G/DL (3.4-5.0); Bilirubin,Total 0.4 MG/DL (0.2-1.0); Calcium 8.7 MG/DL (8.5-10.1); Osmolality,Calculated 293.2 MOS/KG (273-304); Potassium 4.8 MMOL/L (3.5-5.1); Total Protein 6.3 G/DL (6.4-8.3)
[2018-02-04] MEDS ORDERED: methylPREDNISolone SOD SUC 40 MG/1 ML VIAL IV SCH (08:30)
[2018-02-04] MEDS: methylPREDNISolone SOD SUC 40 MG/1 ML VIAL IV SCH (10:13)
[2018-02-04] MEDS: INSULIN LISPRO 100 UNIT/ML SUBCUT SCH ×4 (10:16→21:57)
[2018-02-04] MEDS: IRBESARTAN 150 MG TABLET PO SCH (10:17)
[2018-02-04] MEDS: FERROUS SULFATE 325 MG TABLET PO SCH ×2 (10:18→21:59)
[2018-02-04] MEDS: DILTIAZEM 90 MG TABLET PO SCH ×4 (10:18→21:59)
[2018-02-04] MEDS: APIXABAN 2.5 MG TABLET PO SCH (10:18)
[2018-02-04] MEDS: PANTOPRAZOLE 40 MG TABLET PO SCH (10:19)
[2018-02-04] MEDS: DOXYCYCLINE HYCLATE 100 MG CAPSULE PO SCH ×2 (10:19→22:00)
[2018-02-04] MEDS: BUDESONIDE/FORMOTEROL 160-4.5 INHALER 6 GM INH SCH ×2 (10:19→22:00)
[2018-02-04] MEDS: ASCORBIC ACID 500 MG TABLET PO SCH ×2 (10:19→21:59)
[2018-02-04] MEDS: POLYETHYLENE GLYCOL POWDER 17 GM PACK PO SCH (10:19)
[2018-02-04] MEDS: BISOPROLOL 5 MG TABLET PO SCH ×2 (10:19→21:58)
[2018-02-04] MEDS: ALLOPURINOL 100 MG TABLET PO SCH (10:20)
[2018-02-04] MEDS ORDERED: SODIUM CHLORIDE 0.9% 1,000 ML IV PRN (10:20)
[2018-02-04] MEDS: SERTRALINE 25 MG TABLET PO SCH (10:20)
[2018-02-04] MEDS ORDERED: FUROSEMIDE 40 MG/4 ML VIAL IV ONE (10:21)
[2018-02-04] MEDS: FUROSEMIDE 40 MG/4 ML VIAL IV SCH (10:42)
[2018-02-04] MEDS: hydrALAZINE 25 MG TABLET PO SCH ×2 (16:48→21:59)
[2018-02-04 21:16] LABS: Hematocrit 32.6 VOL% (35.7-47.0); Hemoglobin 10.6 GM/DL (12.0-16.0)
[2018-02-04] MEDS: INSULIN GLARGINE 100 UNIT/ML SUBCUT SCH (21:57)
[2018-02-04] MEDS: DOCUSATE SODIUM 100 MG CAPSULE PO SCH (21:58)
[2018-02-04] MEDS: MIRTAZAPINE 15 MG TABLET PO SCH (21:58)
[2018-02-05] MEDS: ALBUTEROL/IPRATROPIUM 3 ML NEB RESP TX SCH ×4 (00:28→19:43)
[2018-02-05 04:35] LABS: Basophils % 0.1 % (0.0-0.8); Hematocrit 32.4 VOL% (35.7-47.0); Hemoglobin 10.4 GM/DL (12.0-16.0); Immature Granulocytes % 1.2 %; Immature Granulocytes Absolute 0.14 #; Lymphocytes # 0.3 10*3/uL (1.4-4.0); Lymphocytes % 2.3 % (21.3-54.2); Mean Corpuscular HGB Conc 32.1 GM/DL (32-36); Mean Corpuscular Hemoglobin 27 PG (27-34); Mean Corpuscular Volume 82.4 FL (87-102); Mean Platelet Volume 10.5 FL (9.6-12.0); Monocytes # 0.3 10*3/uL (0.11-0.8); Monocytes % 2.7 % (1.7-12.7); Neutrophils # 10.5 10*3/uL (1.4-7.4); Neutrophils % 93.7 % (38.7-73.9); Platelet Count 204 T/CUMM (130-400); Red Blood Count 3.93 MC/CUMM (3.8-5.5); Red Cell Distribution Width 17.5 % (9.3-17.3); White Blood Count 11.2 T/CUMM (4-12)
[2018-02-05 05:10] LABS: Albumin 3.2 G/DL (3.4-5.0); Bilirubin,Total 0.7 MG/DL (0.2-1.0); Calcium 8.6 MG/DL (8.5-10.1); Osmolality,Calculated 303.7 MOS/KG (273-304); Potassium 4.8 MMOL/L (3.5-5.1); Total Protein 6.7 G/DL (6.4-8.3)
[2018-02-05 05:26] LABS: Lymphocytes 3 % (20-55); Segmented Neutrophils 96 % (50-85); Total Cells Counted 100
[2018-02-05 05:27] LABS: Hypochromasia 1+; Ovalocytes Slight; Platelet Estimate Adequate
[2018-02-05] MEDS ORDERED: FUROSEMIDE 40 MG/4 ML VIAL IV ONE (08:07)
[2018-02-05] MEDS: BUDESONIDE/FORMOTEROL 160-4.5 INHALER 6 GM INH SCH ×2 (11:33→22:28)
[2018-02-05] MEDS: INSULIN LISPRO 100 UNIT/ML SUBCUT SCH ×4 (11:34→22:27)
[2018-02-05] MEDS: DILTIAZEM 90 MG TABLET PO SCH ×4 (11:35→22:26)
[2018-02-05] MEDS: hydrALAZINE 25 MG TABLET PO SCH ×4 (11:35→22:26)
[2018-02-05] MEDS: PANTOPRAZOLE 40 MG TABLET PO SCH (11:36)
[2018-02-05] MEDS: POLYETHYLENE GLYCOL POWDER 17 GM PACK PO SCH (11:36)
[2018-02-05] MEDS: FERROUS SULFATE 325 MG TABLET PO SCH ×2 (11:36→22:27)
[2018-02-05] MEDS: metOLazone 5 MG TABLET PO SCH (11:37)
[2018-02-05] MEDS: DOXYCYCLINE HYCLATE 100 MG CAPSULE PO SCH ×2 (11:37→22:26)
[2018-02-05] MEDS: SERTRALINE 25 MG TABLET PO SCH (11:37)
[2018-02-05] MEDS: BISOPROLOL 5 MG TABLET PO SCH ×2 (11:37→22:28)
[2018-02-05] MEDS: ASCORBIC ACID 500 MG TABLET PO SCH ×2 (11:37→22:26)
[2018-02-05] MEDS: methylPREDNISolone SOD SUC 40 MG/1 ML VIAL IV SCH ×3 (11:44→22:28)
[2018-02-05] MEDS: FUROSEMIDE 40 MG/4 ML VIAL IV SCH (18:42)
[2018-02-05] MEDS: MIRTAZAPINE 15 MG TABLET PO SCH (22:25)
[2018-02-05] MEDS: DOCUSATE SODIUM 100 MG CAPSULE PO SCH (22:26)
[2018-02-05] MEDS: INSULIN GLARGINE 100 UNIT/ML SUBCUT SCH (22:27)
[2018-02-06] MEDS: ALBUTEROL/IPRATROPIUM 3 ML NEB RESP TX SCH ×4 (00:54→19:34)
[2018-02-06] MEDS: methylPREDNISolone SOD SUC 40 MG/1 ML VIAL IV SCH ×3 (04:53→21:26)
[2018-02-06 05:11] LABS: Hematocrit 35.6 VOL% (35.7-47.0); Hemoglobin 11.4 GM/DL (12.0-16.0); Immature Granulocytes % 1.1 %; Immature Granulocytes Absolute 0.12 #; Lymphocytes # 0.3 10*3/uL (1.4-4.0); Lymphocytes % 2.4 % (21.3-54.2); Mean Corpuscular Hemoglobin 27 PG (27-34); Mean Platelet Volume 11.1 FL (9.6-12.0); Monocytes # 0.2 10*3/uL (0.11-0.8); Monocytes % 1.5 % (1.7-12.7); Neutrophils # 10.2 10*3/uL (1.4-7.4); Platelet Count 234 T/CUMM (130-400); Red Blood Count 4.24 MC/CUMM (3.8-5.5); Red Cell Distribution Width 17.8 % (9.3-17.3); White Blood Count 10.7 T/CUMM (4-12)
[2018-02-06 05:20] LABS: Calcium 8.9 MG/DL (8.5-10.1); Osmolality,Calculated 306.4 MOS/KG (273-304)
[2018-02-06 05:27] LABS: Calcium 8.6 MG/DL (8.5-10.1); Osmolality,Calculated 308.3 MOS/KG (273-304); Potassium 4.1 MMOL/L (3.5-5.1)
[2018-02-06 05:40] LABS: Band Neutrophils 2 % (0-10); Burr Cells Few; Elliptocytes Few; Lymphocytes 1 % (20-55); Platelet Estimate Normal; Segmented Neutrophils 95 % (50-85); Total Cells Counted 100
[2018-02-06 05:41] LABS: Anisocytosis Slight; Macrocytosis Slight
[2018-02-06] MEDS: DILTIAZEM 90 MG TABLET PO SCH ×4 (08:14→21:27)
[2018-02-06] MEDS: DOXYCYCLINE HYCLATE 100 MG CAPSULE PO SCH ×2 (08:14→21:27)
[2018-02-06] MEDS: FERROUS SULFATE 325 MG TABLET PO SCH ×2 (08:14→21:27)
[2018-02-06] MEDS: PANTOPRAZOLE 40 MG TABLET PO SCH (08:14)
[2018-02-06] MEDS: POLYETHYLENE GLYCOL POWDER 17 GM PACK PO SCH (08:15)
[2018-02-06] MEDS: metOLazone 5 MG TABLET PO SCH (08:15)
[2018-02-06] MEDS: BISOPROLOL 5 MG TABLET PO SCH ×2 (08:15→21:27)
[2018-02-06] MEDS: ASCORBIC ACID 500 MG TABLET PO SCH ×2 (08:15→21:27)
[2018-02-06] MEDS: FUROSEMIDE 40 MG/4 ML VIAL IV SCH ×2 (08:15→17:07)
[2018-02-06] MEDS: SERTRALINE 25 MG TABLET PO SCH (08:15)
[2018-02-06] MEDS: hydrALAZINE 25 MG TABLET PO SCH ×4 (08:15→21:27)
[2018-02-06] MEDS: INSULIN LISPRO 100 UNIT/ML SUBCUT SCH ×4 (09:19→21:27)
[2018-02-06] MEDS: BUDESONIDE/FORMOTEROL 160-4.5 INHALER 6 GM INH SCH ×2 (09:19→21:36)
[2018-02-06] MEDS: MIRTAZAPINE 15 MG TABLET PO SCH (21:26)
[2018-02-06] MEDS: DOCUSATE SODIUM 100 MG CAPSULE PO SCH (21:27)
[2018-02-06] MEDS: INSULIN GLARGINE 100 UNIT/ML SUBCUT SCH (21:28)
[2018-02-07] MEDS: ALBUTEROL/IPRATROPIUM 3 ML NEB RESP TX SCH ×4 (00:24→19:40)
[2018-02-07 04:16] LABS: Basophils % 0.1 % (0.0-0.8); Hematocrit 33.9 VOL% (35.7-47.0); Hemoglobin 10.9 GM/DL (12.0-16.0); Immature Granulocytes % 1.1 %; Lymphocytes # 0.2 10*3/uL (1.4-4.0); Lymphocytes % 2.3 % (21.3-54.2); Mean Corpuscular HGB Conc 32.2 GM/DL (32-36); Mean Corpuscular Hemoglobin 27 PG (27-34); Mean Corpuscular Volume 83.1 FL (87-102); Mean Platelet Volume 10.7 FL (9.6-12.0); Monocytes # 0.2 10*3/uL (0.11-0.8); Monocytes % 1.6 % (1.7-12.7); Neutrophils # 8.9 10*3/uL (1.4-7.4); Neutrophils % 94.9 % (38.7-73.9); Platelet Count 233 T/CUMM (130-400); Red Blood Count 4.08 MC/CUMM (3.8-5.5); White Blood Count 9.4 T/CUMM (4-12)
[2018-02-07 04:50] LABS: Osmolality,Calculated 314.4 MOS/KG (273-304); Potassium 3.3 MMOL/L (3.5-5.1)
[2018-02-07 05:28] LABS: Band Neutrophils 1 % (0-10); Lymphocytes 4 % (20-55); Platelet Estimate Normal; Segmented Neutrophils 94 % (50-85); Total Cells Counted 100
[2018-02-07] MEDS: methylPREDNISolone SOD SUC 40 MG/1 ML VIAL IV SCH ×3 (05:32→21:38)
[2018-02-07] MEDS: POTASSIUM CHLORIDE 20 MEQ TABLET PO PRN ×4 (05:34→12:24)
[2018-02-07] MEDS: POLYETHYLENE GLYCOL POWDER 17 GM PACK PO SCH (08:18)
[2018-02-07] MEDS: INSULIN LISPRO 100 UNIT/ML SUBCUT SCH ×4 (08:18→21:38)
[2018-02-07] MEDS: PANTOPRAZOLE 40 MG TABLET PO SCH (08:19)
[2018-02-07] MEDS: FERROUS SULFATE 325 MG TABLET PO SCH ×2 (08:19→21:37)
[2018-02-07] MEDS: DOXYCYCLINE HYCLATE 100 MG CAPSULE PO SCH ×2 (08:19→21:38)
[2018-02-07] MEDS: FUROSEMIDE 40 MG/4 ML VIAL IV SCH ×2 (08:19→16:11)
[2018-02-07] MEDS: ASCORBIC ACID 500 MG TABLET PO SCH ×2 (08:20→21:44)
[2018-02-07] MEDS: metOLazone 5 MG TABLET PO SCH (08:20)
[2018-02-07] MEDS: BISOPROLOL 5 MG TABLET PO SCH ×2 (08:20→21:37)
[2018-02-07] MEDS: SERTRALINE 25 MG TABLET PO SCH (08:20)
[2018-02-07] MEDS: hydrALAZINE 25 MG TABLET PO SCH ×4 (08:20→21:38)
[2018-02-07] MEDS: DILTIAZEM 90 MG TABLET PO SCH ×4 (08:21→21:37)
[2018-02-07] MEDS: BUDESONIDE/FORMOTEROL 160-4.5 INHALER 6 GM INH SCH ×2 (08:23→21:39)
[2018-02-07] MEDS: DOCUSATE SODIUM 100 MG CAPSULE PO SCH (21:37)
[2018-02-07] MEDS: MIRTAZAPINE 15 MG TABLET PO SCH (21:37)
[2018-02-07] MEDS: INSULIN GLARGINE 100 UNIT/ML SUBCUT SCH (21:38)
[2018-02-08] MEDS: ALBUTEROL/IPRATROPIUM 3 ML NEB RESP TX SCH ×4 (00:58→20:10)
[2018-02-08 05:04] LABS: Hemoglobin 11.4 GM/DL (12.0-16.0); Immature Granulocytes % 1.1 %; Immature Granulocytes Absolute 0.11 #; Lymphocytes # 0.2 10*3/uL (1.4-4.0); Lymphocytes % 1.6 % (21.3-54.2); Mean Corpuscular HGB Conc 32.6 GM/DL (32-36); Mean Corpuscular Hemoglobin 27 PG (27-34); Mean Corpuscular Volume 82.9 FL (87-102); Mean Platelet Volume 11.4 FL (9.6-12.0); Monocytes # 0.2 10*3/uL (0.11-0.8); Monocytes % 2.5 % (1.7-12.7); Neutrophils # 9.2 10*3/uL (1.4-7.4); Neutrophils % 94.8 % (38.7-73.9); Platelet Count 245 T/CUMM (130-400); Red Blood Count 4.22 MC/CUMM (3.8-5.5); Red Cell Distribution Width 18.6 % (9.3-17.3); White Blood Count 9.7 T/CUMM (4-12)
[2018-02-08 05:18] LABS: Calcium 8.9 MG/DL (8.5-10.1); Osmolality,Calculated 312.5 MOS/KG (273-304); Potassium 3.5 MMOL/L (3.5-5.1)
[2018-02-08] MEDS: methylPREDNISolone SOD SUC 40 MG/1 ML VIAL IV SCH ×3 (05:33→21:02)
[2018-02-08 05:47] LABS: Hypochromasia 1+; Lymphocytes 3 % (20-55); Nucleated Red Blood Cells 1 (0-5); Segmented Neutrophils 95 % (50-85); Total Cells Counted 100
[2018-02-08 05:48] LABS: Microcytosis 1+; Ovalocytes Slight; Target Cells Slight
[2018-02-08 05:49] LABS: Platelet Estimate Normal
[2018-02-08] MEDS: POTASSIUM CHLORIDE 20 MEQ TABLET PO PRN ×2 (08:09→10:09)
[2018-02-08] MEDS: ASCORBIC ACID 500 MG TABLET PO SCH ×2 (08:09→21:03)
[2018-02-08] MEDS: PANTOPRAZOLE 40 MG TABLET PO SCH (08:10)
[2018-02-08] MEDS: FERROUS SULFATE 325 MG TABLET PO SCH ×2 (08:10→21:04)
[2018-02-08] MEDS: BISOPROLOL 5 MG TABLET PO SCH ×2 (08:10→21:04)
[2018-02-08] MEDS: DILTIAZEM 90 MG TABLET PO SCH ×4 (08:10→21:04)
[2018-02-08] MEDS: FUROSEMIDE 40 MG/4 ML VIAL IV SCH ×2 (08:11→17:00)
[2018-02-08] MEDS: INSULIN LISPRO 100 UNIT/ML SUBCUT SCH ×4 (08:11→21:02)
[2018-02-08] MEDS: POLYETHYLENE GLYCOL POWDER 17 GM PACK PO SCH (08:11)
[2018-02-08] MEDS: SERTRALINE 25 MG TABLET PO SCH (08:11)
[2018-02-08] MEDS: hydrALAZINE 25 MG TABLET PO SCH ×4 (08:11→21:03)
[2018-02-08] MEDS: DOXYCYCLINE HYCLATE 100 MG CAPSULE PO SCH ×2 (08:16→21:04)
[2018-02-08] MEDS: BUDESONIDE/FORMOTEROL 160-4.5 INHALER 6 GM INH SCH ×2 (08:20→21:04)
[2018-02-08] MEDS: MIRTAZAPINE 15 MG TABLET PO SCH (21:03)
[2018-02-08] MEDS: INSULIN GLARGINE 100 UNIT/ML SUBCUT SCH (21:03)
[2018-02-08] MEDS: DOCUSATE SODIUM 100 MG CAPSULE PO SCH (21:04)
[2018-02-09] MEDS: ALBUTEROL/IPRATROPIUM 3 ML NEB RESP TX SCH ×4 (00:12→19:26)
[2018-02-09] MEDS: methylPREDNISolone SOD SUC 40 MG/1 ML VIAL IV SCH (04:38)
[2018-02-09 04:55] LABS: Basophils % 0.1 % (0.0-0.8); Hematocrit 35.2 VOL% (35.7-47.0); Hemoglobin 11.3 GM/DL (12.0-16.0); Immature Granulocytes % 1.2 %; Immature Granulocytes Absolute 0.12 #; Lymphocytes # 0.2 10*3/uL (1.4-4.0); Lymphocytes % 1.8 % (21.3-54.2); Mean Corpuscular HGB Conc 32.1 GM/DL (32-36); Mean Corpuscular Hemoglobin 27 PG (27-34); Mean Corpuscular Volume 83.2 FL (87-102); Mean Platelet Volume 10.8 FL (9.6-12.0); Monocytes # 0.2 10*3/uL (0.11-0.8); Monocytes % 2.5 % (1.7-12.7); Neutrophils # 9.1 10*3/uL (1.4-7.4); Neutrophils % 94.4 % (38.7-73.9); Platelet Count 227 T/CUMM (130-400); Red Blood Count 4.23 MC/CUMM (3.8-5.5); Red Cell Distribution Width 18.6 % (9.3-17.3); White Blood Count 9.7 T/CUMM (4-12)
[2018-02-09 05:06] LABS: Calcium 8.9 MG/DL (8.5-10.1); Osmolality,Calculated 311.7 MOS/KG (273-304); Potassium 3.6 MMOL/L (3.5-5.1)
[2018-02-09 05:19] LABS: Hypochromasia 1+; Lymphocytes 2 % (20-55); Microcytosis 1+; Platelet Estimate Adequate; Segmented Neutrophils 97 % (50-85); Total Cells Counted 100
[2018-02-09] MEDS ORDERED: methylPREDNISolone SOD SUC 40 MG/1 ML VIAL IV SCH (08:00)
[2018-02-09] MEDS: INSULIN LISPRO 100 UNIT/ML SUBCUT SCH ×4 (08:45→21:29)
[2018-02-09] MEDS: FUROSEMIDE 40 MG/4 ML VIAL IV SCH ×2 (08:46→15:38)
[2018-02-09] MEDS: DILTIAZEM 90 MG TABLET PO SCH ×4 (08:46→21:28)
[2018-02-09] MEDS: PANTOPRAZOLE 40 MG TABLET PO SCH (08:46)
[2018-02-09] MEDS: POTASSIUM CHLORIDE 20 MEQ TABLET PO PRN ×2 (08:47→12:13)
[2018-02-09] MEDS: ASCORBIC ACID 500 MG TABLET PO SCH ×2 (08:47→21:28)
[2018-02-09] MEDS: SERTRALINE 25 MG TABLET PO SCH (08:47)
[2018-02-09] MEDS: BUDESONIDE/FORMOTEROL 160-4.5 INHALER 6 GM INH SCH ×2 (08:47→21:30)
[2018-02-09] MEDS: hydrALAZINE 25 MG TABLET PO SCH ×4 (08:47→21:28)
[2018-02-09] MEDS: POLYETHYLENE GLYCOL POWDER 17 GM PACK PO SCH (08:47)
[2018-02-09] MEDS: DOXYCYCLINE HYCLATE 100 MG CAPSULE PO SCH ×2 (08:47→21:33)
[2018-02-09] MEDS: BISOPROLOL 5 MG TABLET PO SCH ×2 (08:47→21:28)
[2018-02-09] MEDS: FERROUS SULFATE 325 MG TABLET PO SCH ×2 (08:52→21:28)
[2018-02-09] MEDS ORDERED: INSULIN GLARGINE 100 UNIT/ML SUBCUT SCH (09:00)
[2018-02-09] MEDS ORDERED: BISOPROLOL 5 MG TABLET PO ONE (14:50)
[2018-02-09] MEDS: ALUMINUM/MAGNES/SIMETH MAX STR 30 ML UDCUP PO SCH ×3 (15:38→21:28)
[2018-02-09] MEDS: APIXABAN 2.5 MG TABLET PO SCH (21:28)
[2018-02-09] MEDS: DOCUSATE SODIUM 100 MG CAPSULE PO SCH (21:28)
[2018-02-09] MEDS: INSULIN GLARGINE 100 UNIT/ML SUBCUT SCH (21:29)
[2018-02-09] MEDS: MIRTAZAPINE 15 MG TABLET PO SCH (21:32)
[2018-02-10] MEDS: ALBUTEROL/IPRATROPIUM 3 ML NEB RESP TX SCH ×4 (00:16→19:31)
[2018-02-10] MEDS ORDERED: methylPREDNISolone SOD SUC 40 MG/1 ML VIAL IV SCH (05:00)
[2018-02-10] MEDS: PANTOPRAZOLE 40 MG TABLET PO SCH (09:11)
[2018-02-10] MEDS: BISOPROLOL 5 MG TABLET PO SCH ×2 (09:11→20:51)
[2018-02-10] MEDS: DILTIAZEM 90 MG TABLET PO SCH ×4 (09:11→20:52)
[2018-02-10] MEDS: FUROSEMIDE 80 MG TABLET PO SCH ×2 (09:12→16:42)
[2018-02-10] MEDS: FERROUS SULFATE 325 MG TABLET PO SCH ×2 (09:12→20:52)
[2018-02-10] MEDS: APIXABAN 2.5 MG TABLET PO SCH ×2 (09:12→20:52)
[2018-02-10] MEDS: ASCORBIC ACID 500 MG TABLET PO SCH ×2 (09:12→20:52)
[2018-02-10] MEDS: SERTRALINE 25 MG TABLET PO SCH (09:12)
[2018-02-10] MEDS: hydrALAZINE 25 MG TABLET PO SCH ×4 (09:12→20:52)
[2018-02-10] MEDS: INSULIN GLARGINE 100 UNIT/ML SUBCUT SCH ×2 (09:13→20:53)
[2018-02-10] MEDS: ALUMINUM/MAGNES/SIMETH MAX STR 30 ML UDCUP PO SCH ×4 (09:13→20:51)
[2018-02-10] MEDS: BUDESONIDE/FORMOTEROL 160-4.5 INHALER 6 GM INH SCH ×2 (09:14→20:54)
[2018-02-10] MEDS: predniSONE 20 MG TABLET PO SCH (09:14)
[2018-02-10] MEDS: INSULIN LISPRO 100 UNIT/ML SUBCUT SCH ×4 (09:15→21:02)
[2018-02-10] MEDS: POLYETHYLENE GLYCOL POWDER 17 GM PACK PO SCH (09:17)
[2018-02-10] MEDS: DOCUSATE SODIUM 100 MG CAPSULE PO SCH (20:52)
[2018-02-10] MEDS: MIRTAZAPINE 15 MG TABLET PO SCH (20:52)
[2018-02-11] MEDS: ALBUTEROL/IPRATROPIUM 3 ML NEB RESP TX SCH ×3 (00:37→14:17)
[2018-02-11 05:34] LABS: Hematocrit 36.4 VOL% (35.7-47.0); Hemoglobin 11.8 GM/DL (12.0-16.0); Immature Granulocytes % 1.1 %; Immature Granulocytes Absolute 0.12 #; Lymphocytes # 0.2 10*3/uL (1.4-4.0); Lymphocytes % 2.3 % (21.3-54.2); Mean Corpuscular HGB Conc 32.4 GM/DL (32-36); Mean Corpuscular Hemoglobin 27 PG (27-34); Mean Corpuscular Volume 82.4 FL (87-102); Mean Platelet Volume 11.8 FL (9.6-12.0); Monocytes # 0.5 10*3/uL (0.11-0.8); Neutrophils # 9.7 10*3/uL (1.4-7.4); Neutrophils % 91.6 % (38.7-73.9); Platelet Count 192 T/CUMM (130-400); Red Blood Count 4.42 MC/CUMM (3.8-5.5); Red Cell Distribution Width 18.6 % (9.3-17.3); White Blood Count 10.5 T/CUMM (4-12)
[2018-02-11 05:41] LABS: Calcium 8.7 MG/DL (8.5-10.1); Osmolality,Calculated 318.7 MOS/KG (273-304); Potassium 3.4 MMOL/L (3.5-5.1)
[2018-02-11 05:52] LABS: Calcium 8.8 MG/DL (8.5-10.1); Osmolality,Calculated 320.5 MOS/KG (273-304); Potassium 3.3 MMOL/L (3.5-5.1)
[2018-02-11 06:00] LABS: Band Neutrophils 2 % (0-10); Lymphocytes 5 % (20-55); Platelet Estimate Normal; Segmented Neutrophils 89 % (50-85); Total Cells Counted 100
[2018-02-11] MEDS: INSULIN LISPRO 100 UNIT/ML SUBCUT SCH ×2 (06:48→12:02)
[2018-02-11] MEDS: ALUMINUM/MAGNES/SIMETH MAX STR 30 ML UDCUP PO SCH ×2 (06:54→12:36)
[2018-02-11] MEDS: FUROSEMIDE 80 MG TABLET PO SCH (09:27)
[2018-02-11] MEDS: PANTOPRAZOLE 40 MG TABLET PO SCH (09:27)
[2018-02-11] MEDS: hydrALAZINE 25 MG TABLET PO SCH ×2 (09:28→12:36)
[2018-02-11] MEDS: BISOPROLOL 5 MG TABLET PO SCH (09:28)
[2018-02-11] MEDS: SERTRALINE 25 MG TABLET PO SCH (09:28)
[2018-02-11] MEDS: DILTIAZEM 90 MG TABLET PO SCH ×2 (09:28→12:36)
[2018-02-11] MEDS: ASCORBIC ACID 500 MG TABLET PO SCH (09:29)
[2018-02-11] MEDS: predniSONE 20 MG TABLET PO SCH (09:29)
[2018-02-11] MEDS: INSULIN GLARGINE 100 UNIT/ML SUBCUT SCH (09:29)
[2018-02-11] MEDS: APIXABAN 2.5 MG TABLET PO SCH (09:29)
[2018-02-11] MEDS: POLYETHYLENE GLYCOL POWDER 17 GM PACK PO SCH (09:29)
[2018-02-11] MEDS: FERROUS SULFATE 325 MG TABLET PO SCH (09:30)
[2018-02-11] MEDS: POTASSIUM CHLORIDE 20 MEQ TABLET PO PRN (09:37)
[2018-02-11] MEDS: BUDESONIDE/FORMOTEROL 160-4.5 INHALER 6 GM INH SCH (09:38)
[2018-02-11 11:41] VITALS: BP 176/85
== END 2018-02-11 15:30 | disposition home health service (06) | DRG 291 ==
LOC: N.ED 22:11 → N.EDINP 22:11 → SUATTDRO 01-31 04:09 → N.TELEN 01-31 04:40 → SUATTDRO 01-31 14:41
PROVIDERS: ADMIT Internal Medicine; ATTEND Internal Medicine

== ENCOUNTER 2018-02-23 09:00 | Inpatient (IN) ==
[2018-02-23 09:46] LABS: Basophils % 0.1 % (0.0-0.8); Eosinophils % 0.3 % (0.00-10.9); Hematocrit 34.9 VOL% (35.7-47.0); Hemoglobin 11.3 GM/DL (12.0-16.0); Lymphocytes # 0.6 10*3/uL (1.4-4.0); Lymphocytes % 5.6 % (21.3-54.2); Mean Corpuscular HGB Conc 32.4 GM/DL (32-36); Mean Corpuscular Hemoglobin 27 PG (27-34); Mean Corpuscular Volume 84.5 FL (87-102); Mean Platelet Volume 11.2 FL (9.6-12.0); Monocytes # 0.5 10*3/uL (0.11-0.8); Monocytes % 5.4 % (1.7-12.7); Neutrophils # 8.6 10*3/uL (1.4-7.4); Neutrophils % 87.6 % (38.7-73.9); Red Blood Count 4.13 MC/CUMM (3.8-5.5); Red Cell Distribution Width 19.9 % (9.3-17.3); White Blood Count 9.8 T/CUMM (4-12)
[2018-02-23 09:51] LABS: PT Patient Result 10.6 SECS; Partial Thromboplastin Time 29.7 SECS (0-40)
[2018-02-23 10:06] LABS: Platelet Count 106 T/CUMM (130-400)
[2018-02-23 10:09] LABS: Hypochromasia 1+; Platelet Estimate Decreased
[2018-02-23 11:02] LABS: Albumin 2.8 G/DL (3.4-5.0); Bilirubin,Total 0.6 MG/DL (0.2-1.0); Calcium 8.3 MG/DL (8.5-10.1); Osmolality,Calculated 300.1 MOS/KG (273-304); Potassium 5.5 MMOL/L (3.5-5.1); Total Protein 6.5 G/DL (6.4-8.3)
[2018-02-23] MEDS ORDERED: FUROSEMIDE 40 MG/4 ML VIAL IV STA (11:16)
[2018-02-23] MEDS ORDERED: ONDANSETRON 4 MG/2 ML VIAL IV STA (11:22)
[2018-02-23] MEDS ORDERED: DEXTROSE 50% 25 GM/50 ML VIAL IV PRN (12:49)
[2018-02-23] MEDS ORDERED: GLUCAGON 1 MG VIAL IM PRN (12:49)
[2018-02-23] MEDS ORDERED: SODIUM POLYSTYRENE SULFATE 15 GM/60 ML BOTTLE PO STA (14:43)
[2018-02-23] MEDS: DILTIAZEM 90 MG TABLET PO SCH ×3 (15:53→21:45)
[2018-02-23] MEDS: hydrALAZINE 25 MG TABLET PO SCH ×3 (15:53→21:44)
[2018-02-23] MEDS ORDERED: FUROSEMIDE 40 MG/4 ML VIAL IV SCH (16:00)
[2018-02-23] MEDS: BUDESONIDE/FORMOTEROL 160-4.5 INHALER 6 GM INH SCH (21:43)
[2018-02-23] MEDS: APIXABAN 2.5 MG TABLET PO SCH (21:44)
[2018-02-23] MEDS: DOCUSATE SODIUM 100 MG CAPSULE PO SCH (21:44)
[2018-02-23] MEDS: FERROUS SULFATE 325 MG TABLET PO SCH (21:44)
[2018-02-23] MEDS: BISOPROLOL 5 MG TABLET PO SCH (21:44)
[2018-02-23] MEDS: MIRTAZAPINE 15 MG TABLET PO SCH (21:45)
[2018-02-23] MEDS: ASCORBIC ACID 500 MG TABLET PO SCH (21:45)
[2018-02-23] MEDS: INSULIN GLARGINE 100 UNIT/ML SUBCUT SCH (21:52)
[2018-02-24 08:56] LABS: Calcium 7.9 MG/DL (8.5-10.1); Osmolality,Calculated 302.3 MOS/KG (273-304); Potassium 4.3 MMOL/L (3.5-5.1)
[2018-02-24 09:03] LABS: Troponin I 0.062 NG/ML (0.00-0.045)
[2018-02-24] MEDS: hydrALAZINE 25 MG TABLET PO SCH ×4 (09:07→22:12)
[2018-02-24] MEDS: DILTIAZEM 90 MG TABLET PO SCH ×4 (09:08→22:12)
[2018-02-24] MEDS: APIXABAN 2.5 MG TABLET PO SCH ×2 (09:08→22:11)
[2018-02-24] MEDS: FERROUS SULFATE 325 MG TABLET PO SCH ×2 (09:09→22:11)
[2018-02-24] MEDS: POTASSIUM CHLORIDE 20 MEQ TABLET PO SCH (09:09)
[2018-02-24] MEDS: POLYETHYLENE GLYCOL POWDER 17 GM PACK PO SCH (09:10)
[2018-02-24] MEDS: PANTOPRAZOLE 40 MG TABLET PO SCH (09:10)
[2018-02-24] MEDS: ASCORBIC ACID 500 MG TABLET PO SCH ×2 (09:11→22:10)
[2018-02-24] MEDS: BUDESONIDE/FORMOTEROL 160-4.5 INHALER 6 GM INH SCH ×2 (09:11→22:09)
[2018-02-24] MEDS: BISOPROLOL 5 MG TABLET PO SCH ×2 (09:11→22:10)
[2018-02-24] MEDS: ALLOPURINOL 100 MG TABLET PO SCH (09:12)
[2018-02-24] MEDS: SERTRALINE 25 MG TABLET PO SCH (09:12)
[2018-02-24] MEDS: FUROSEMIDE 40 MG/4 ML VIAL IV SCH ×2 (11:47→15:59)
[2018-02-24] MEDS: DOXYCYCLINE HYCLATE INJ 100 MG in SODIUM CHLORIDE 0.9% 100 ML IV SCH (17:44)
[2018-02-24] MEDS: INSULIN GLARGINE 100 UNIT/ML SUBCUT SCH (22:09)
[2018-02-24] MEDS: MIRTAZAPINE 15 MG TABLET PO SCH (22:11)
[2018-02-24] MEDS: DOCUSATE SODIUM 100 MG CAPSULE PO SCH (22:11)
[2018-02-25] MEDS: DOXYCYCLINE HYCLATE INJ 100 MG in SODIUM CHLORIDE 0.9% 100 ML IV SCH ×2 (04:00→17:21)
[2018-02-25 05:50] LABS: Calcium 7.3 MG/DL (8.5-10.1); Osmolality,Calculated 295.4 MOS/KG (273-304); Potassium 3.7 MMOL/L (3.5-5.1)
[2018-02-25] MEDS: DILTIAZEM 90 MG TABLET PO SCH ×4 (09:40→21:35)
[2018-02-25] MEDS: POTASSIUM CHLORIDE 20 MEQ TABLET PO SCH (09:40)
[2018-02-25] MEDS: FERROUS SULFATE 325 MG TABLET PO SCH ×2 (09:41→21:36)
[2018-02-25] MEDS: APIXABAN 2.5 MG TABLET PO SCH ×2 (09:41→21:36)
[2018-02-25] MEDS: POLYETHYLENE GLYCOL POWDER 17 GM PACK PO SCH (09:44)
[2018-02-25] MEDS: PANTOPRAZOLE 40 MG TABLET PO SCH (09:44)
[2018-02-25] MEDS: BUDESONIDE/FORMOTEROL 160-4.5 INHALER 6 GM INH SCH ×2 (09:44→21:40)
[2018-02-25] MEDS: BISOPROLOL 5 MG TABLET PO SCH ×2 (09:45→21:41)
[2018-02-25] MEDS: ASCORBIC ACID 500 MG TABLET PO SCH ×2 (09:45→21:35)
[2018-02-25] MEDS: SERTRALINE 25 MG TABLET PO SCH (09:45)
[2018-02-25] MEDS: ALLOPURINOL 100 MG TABLET PO SCH (09:45)
[2018-02-25] MEDS: hydrALAZINE 25 MG TABLET PO SCH ×4 (10:05→21:34)
[2018-02-25] MEDS: FUROSEMIDE 40 MG/4 ML VIAL IV SCH (11:04)
[2018-02-25] MEDS: TORSEMIDE 20 MG TABLET PO SCH (17:18)
[2018-02-25] MEDS: DOCUSATE SODIUM 100 MG CAPSULE PO SCH (21:35)
[2018-02-25] MEDS: INSULIN GLARGINE 100 UNIT/ML SUBCUT SCH (21:36)
[2018-02-25] MEDS: MIRTAZAPINE 15 MG TABLET PO SCH (21:36)
[2018-02-26] MEDS: DOXYCYCLINE HYCLATE INJ 100 MG in SODIUM CHLORIDE 0.9% 100 ML IV SCH ×2 (04:30→16:37)
[2018-02-26 06:28] LABS: Calcium 7.7 MG/DL (8.5-10.1); Osmolality,Calculated 291.4 MOS/KG (273-304); Potassium 3.6 MMOL/L (3.5-5.1)
[2018-02-26] MEDS: POLYETHYLENE GLYCOL POWDER 17 GM PACK PO SCH (09:28)
[2018-02-26] MEDS: TORSEMIDE 20 MG TABLET PO SCH ×2 (09:29→13:05)
[2018-02-26] MEDS: SERTRALINE 25 MG TABLET PO SCH (09:30)
[2018-02-26] MEDS: ALLOPURINOL 100 MG TABLET PO SCH (09:30)
[2018-02-26] MEDS: POTASSIUM CHLORIDE 20 MEQ TABLET PO SCH (09:30)
[2018-02-26] MEDS: DILTIAZEM 90 MG TABLET PO SCH ×4 (09:30→20:14)
[2018-02-26] MEDS: hydrALAZINE 25 MG TABLET PO SCH ×4 (09:30→20:10)
[2018-02-26] MEDS: FERROUS SULFATE 325 MG TABLET PO SCH ×2 (09:30→20:09)
[2018-02-26] MEDS: ASCORBIC ACID 500 MG TABLET PO SCH ×2 (09:30→20:10)
[2018-02-26] MEDS: metOLazone 5 MG TABLET PO SCH (09:30)
[2018-02-26] MEDS: BISOPROLOL 5 MG TABLET PO SCH ×2 (09:31→20:17)
[2018-02-26] MEDS: APIXABAN 2.5 MG TABLET PO SCH ×2 (09:31→20:09)
[2018-02-26] MEDS: BUDESONIDE/FORMOTEROL 160-4.5 INHALER 6 GM INH SCH ×2 (09:31→20:16)
[2018-02-26] MEDS: PANTOPRAZOLE 40 MG TABLET PO SCH (09:31)
[2018-02-26] MEDS: ALBUTEROL/IPRATROPIUM 3 ML NEB RESP TX PRN ×2 (09:59→17:50)
[2018-02-26] MEDS: MIRTAZAPINE 15 MG TABLET PO SCH (20:10)
[2018-02-26] MEDS: DOCUSATE SODIUM 100 MG CAPSULE PO SCH (20:10)
[2018-02-26] MEDS: INSULIN GLARGINE 100 UNIT/ML SUBCUT SCH (20:11)
[2018-02-27 04:53] LABS: Calcium 7.9 MG/DL (8.5-10.1); Osmolality,Calculated 291.4 MOS/KG (273-304); Potassium 3.2 MMOL/L (3.5-5.1)
[2018-02-27] MEDS: DOXYCYCLINE HYCLATE INJ 100 MG in SODIUM CHLORIDE 0.9% 100 ML IV SCH (05:04)
[2018-02-27] MEDS: POLYETHYLENE GLYCOL POWDER 17 GM PACK PO SCH (09:30)
[2018-02-27] MEDS ORDERED: DILTIAZEM CD 180 MG CAPSULE PO SCH ×2 (09:30→21:00)
[2018-02-27] MEDS: TORSEMIDE 20 MG TABLET PO SCH (09:30)
[2018-02-27] MEDS: POTASSIUM CHLORIDE 20 MEQ TABLET PO SCH (09:31)
[2018-02-27] MEDS: SERTRALINE 25 MG TABLET PO SCH (09:31)
[2018-02-27] MEDS: PANTOPRAZOLE 40 MG TABLET PO SCH (09:32)
[2018-02-27] MEDS: BISOPROLOL 5 MG TABLET PO SCH (09:32)
[2018-02-27] MEDS: FERROUS SULFATE 325 MG TABLET PO SCH (09:32)
[2018-02-27] MEDS: DILTIAZEM 90 MG TABLET PO SCH (09:33)
[2018-02-27] MEDS: ASCORBIC ACID 500 MG TABLET PO SCH (09:33)
[2018-02-27] MEDS: APIXABAN 2.5 MG TABLET PO SCH (09:34)
[2018-02-27] MEDS: hydrALAZINE 25 MG TABLET PO SCH (09:34)
[2018-02-27] MEDS: BUDESONIDE/FORMOTEROL 160-4.5 INHALER 6 GM INH SCH (09:35)
[2018-02-27] MEDS: ALLOPURINOL 100 MG TABLET PO SCH (09:35)
[2018-02-27] MEDS: metOLazone 5 MG TABLET PO SCH (09:35)
[2018-02-27 11:44] VITALS: BP 168/88
[2018-02-27] MEDS ORDERED: DOXYCYCLINE HYCLATE 100 MG CAPSULE PO SCH (21:00)
== END 2018-02-27 12:25 | disposition home health service (06) | DRG 291 ==
LOC: N.ED 09:00 → N.EDINP 11:47 → N.TELEN 14:34
PROVIDERS: ADMIT Internal Medicine; ATTEND Internal Medicine

== ENCOUNTER 2018-03-03 18:17 | Inpatient (IN) ==
[2018-03-03] MEDS ORDERED: MORPHINE 4 MG/1 ML VIAL IV STA (19:23)
[2018-03-03] MEDS ORDERED: ONDANSETRON 4 MG/2 ML VIAL IV STA (19:23)
[2018-03-03] MEDS ORDERED: KETOROLAC 30 MG/1 ML VIAL IV STA (19:23)
[2018-03-03 20:04] LABS: Basophils % 0.4 % (0.0-0.8); Eosinophils % 0.7 % (0.00-10.9); Hematocrit 37.6 VOL% (35.7-47.0); Hemoglobin 12.1 GM/DL (12.0-16.0); Immature Granulocytes % 0.7 %; Immature Granulocytes Absolute 0.03 #; Lymphocytes # 0.4 10*3/uL (1.4-4.0); Lymphocytes % 8.4 % (21.3-54.2); Mean Corpuscular HGB Conc 32.2 GM/DL (32-36); Mean Corpuscular Hemoglobin 28 PG (27-34); Mean Corpuscular Volume 85.6 FL (87-102); Mean Platelet Volume 11.1 FL (9.6-12.0); Monocytes # 0.4 10*3/uL (0.11-0.8); Monocytes % 8.4 % (1.7-12.7); Neutrophils # 3.7 10*3/uL (1.4-7.4); Neutrophils % 81.4 % (38.7-73.9); Platelet Count 201 T/CUMM (130-400); Red Blood Count 4.39 MC/CUMM (3.8-5.5); Red Cell Distribution Width 19.1 % (9.3-17.3); White Blood Count 4.5 T/CUMM (4-12)
[2018-03-03 20:07] LABS: Apearance,Urine CLEAR (Clear); Bilirubin,Urine Negative (Negative); Blood, Urine Negative (Negative); Glucose,Urine (UA) Negative (Negative); Ketones,Urine Negative (Negative); Mucus,Urine Occasional /LPF (Occasional); Nitrite,Urine Negative (Negative); Protein,Urine 100 MG/DL; RBC,Urine 1 /HPF (0-4); Squamous Epithelial Cell,Urine Occasional /HPF (0-10); Urine Color Yellow (Yellow); Urine Specific Gravity 1.008 (1.001-1.035); Urine Urobilinogen < 2.0 EU/DL (0.2-1.0); WBC,Urine 1 /HPF (0-6)
[2018-03-03 20:14] LABS: PT Patient Result 10.6 SECS; Partial Thromboplastin Time 28.6 SECS (0-40)
[2018-03-03 20:22] LABS: Albumin 2.8 G/DL (3.4-5.0); Bilirubin,Total 1.1 MG/DL (0.2-1.0); Calcium 8.4 MG/DL (8.5-10.1); Osmolality,Calculated 295.5 MOS/KG (273-304); Potassium 2.6 MMOL/L (3.5-5.1)
[2018-03-03] MEDS ORDERED: METOCLOPRAMIDE 10 MG/2 ML VIAL IV STA (21:20)
[2018-03-03] MEDS ORDERED: PROMETHAZINE 25 MG/1 ML VIAL ONE (22:54)
[2018-03-03] MEDS ORDERED: PROMETHAZINE 25 MG/1 ML VIAL IM STA (23:07)
[2018-03-04] MEDS ORDERED: ALBUTEROL/IPRATROPIUM 3 ML NEB RESP TX PRN (00:26)
[2018-03-04] MEDS ORDERED: ACETAMINOPHEN 325 MG TABLET PO PRN (00:26)
[2018-03-04] MEDS ORDERED: MORPHINE 4 MG/1 ML VIAL IV PRN ×3 (00:26→16:50)
[2018-03-04] MEDS ORDERED: SODIUM CHLORIDE 0.9% 1,000 ML IV SCH (00:30)
[2018-03-04] MEDS: HEPARIN 5,000 UNIT/1 ML VIAL SUBCUT SCH ×2 (01:15→14:12)
[2018-03-04] MEDS ORDERED: DEXTROSE 50% 25 GM/50 ML VIAL IV PRN (01:20)
[2018-03-04] MEDS ORDERED: GLUCAGON 1 MG VIAL IM PRN (01:20)
[2018-03-04] MEDS: POTASSIUM CHLORIDE RIDER 10 MEQ in PREMIX 1 EACH IV PRN ×4 (01:47→08:17)
[2018-03-04] MEDS: SODIUM CHLOR 0.9% KCL 40 MEQ 40 MEQ/1,000 ML BAG IV SCH ×3 (03:00→20:44)
[2018-03-04] MEDS: DOXYCYCLINE HYCLATE INJ 100 MG in SODIUM CHLORIDE 0.9% 100 ML IV SCH ×2 (04:29→15:38)
[2018-03-04] MEDS: INSULIN LISPRO 100 UNIT/ML SUBCUT SCH ×3 (06:02→19:02)
[2018-03-04 06:18] LABS: Basophils % 0.2 % (0.0-0.8); Eosinophils # 0.1 10*3/uL (0.0-0.87); Eosinophils % 1.6 % (0.00-10.9); Hematocrit 35.6 VOL% (35.7-47.0); Hemoglobin 11.2 GM/DL (12.0-16.0); Immature Granulocytes % 1.4 %; Immature Granulocytes Absolute 0.08 #; Lymphocytes # 0.4 10*3/uL (1.4-4.0); Lymphocytes % 7.3 % (21.3-54.2); Mean Corpuscular HGB Conc 31.5 GM/DL (32-36); Mean Corpuscular Hemoglobin 27 PG (27-34); Mean Platelet Volume 10.1 FL (9.6-12.0); Monocytes # 0.6 10*3/uL (0.11-0.8); Monocytes % 9.6 % (1.7-12.7); Neutrophils # 4.6 10*3/uL (1.4-7.4); Neutrophils % 79.9 % (38.7-73.9); Platelet Count 182 T/CUMM (130-400); Red Blood Count 4.14 MC/CUMM (3.8-5.5); Red Cell Distribution Width 19.2 % (9.3-17.3); White Blood Count 5.7 T/CUMM (4-12)
[2018-03-04 06:55] LABS: Calcium 8.6 MG/DL (8.5-10.1); Osmolality,Calculated 300.3 MOS/KG (273-304); Potassium 3.3 MMOL/L (3.5-5.1)
[2018-03-04] MEDS ORDERED: ceFAZolin 1,000 MG in SYRINGE 1 EACH IV ONE (08:00)
[2018-03-04] MEDS: hydrALAZINE 25 MG TABLET PO SCH ×4 (08:26→20:29)
[2018-03-04] MEDS: DILTIAZEM CD 180 MG CAPSULE PO SCH ×2 (08:26→20:28)
[2018-03-04] MEDS: POTASSIUM CHLORIDE 20 MEQ TABLET PO SCH (08:31)
[2018-03-04] MEDS: FERROUS SULFATE 325 MG TABLET PO SCH ×2 (08:31→20:28)
[2018-03-04] MEDS: TORSEMIDE 20 MG TABLET PO SCH (08:31)
[2018-03-04] MEDS: BUDESONIDE/FORMOTEROL 160-4.5 INHALER 6 GM INH SCH ×2 (08:32→20:45)
[2018-03-04] MEDS: ASCORBIC ACID 500 MG TABLET PO SCH ×2 (08:32→20:26)
[2018-03-04] MEDS: PANTOPRAZOLE 40 MG TABLET PO SCH (08:32)
[2018-03-04] MEDS: BISOPROLOL 5 MG TABLET PO SCH ×2 (08:32→20:26)
[2018-03-04] MEDS: POLYETHYLENE GLYCOL POWDER 17 GM PACK PO SCH (08:32)
[2018-03-04] MEDS: metOLazone 5 MG TABLET PO SCH (08:32)
[2018-03-04] MEDS: SERTRALINE 25 MG TABLET PO SCH (08:32)
[2018-03-04] MEDS ORDERED: ALBUTEROL 2.5 MG/3 ML NEB RESP TX ONE (08:38)
[2018-03-04] MEDS ORDERED: POTASSIUM CHLORIDE 20 MEQ TABLET PO ONE (08:48)
[2018-03-04] MEDS ORDERED: LACTULOSE 20 GM/30 ML UDCUP PO PRN (09:57)
[2018-03-04] MEDS ORDERED: BISACODYL 10 MG SUPP RECTAL PRN (09:57)
[2018-03-04] MEDS ORDERED: fentaNYL 100 MCG/2 ML VIAL ONE (10:11)
[2018-03-04] MEDS ORDERED: DESFLURANE 1 UNIT/15 MINUTE INH ONE (10:11)
[2018-03-04] MEDS ORDERED: ONDANSETRON 4 MG/2 ML VIAL ONE (10:11)
[2018-03-04] MEDS ORDERED: ETOMIDATE 40 MG/20 ML VIAL IV ONE (10:11)
[2018-03-04] MEDS ORDERED: SUCCINYLCHOLINE 200 MG/10 ML VIAL ONE (10:12)
[2018-03-04] MEDS ORDERED: ALBUTEROL/IPRATROPIUM 3 ML NEB RESP TX ONE (10:27)
[2018-03-04] MEDS: ceFAZolin 1,000 MG in SYRINGE 1 EACH IV SCH (15:38)
[2018-03-04] MEDS: DOCUSATE SODIUM 100 MG CAPSULE PO SCH (20:28)
[2018-03-04] MEDS: MIRTAZAPINE 15 MG TABLET PO SCH (20:32)
[2018-03-04] MEDS: INSULIN GLARGINE 100 UNIT/ML SUBCUT SCH (20:33)
[2018-03-04] MEDS ORDERED: DOXYCYCLINE HYCLATE 100 MG CAPSULE PO SCH (21:00)
[2018-03-05] MEDS: ceFAZolin 1,000 MG in SYRINGE 1 EACH IV SCH ×2 (00:02→08:36)
[2018-03-05] MEDS: INSULIN LISPRO 100 UNIT/ML SUBCUT SCH ×5 (00:03→23:35)
[2018-03-05] MEDS: DOXYCYCLINE HYCLATE INJ 100 MG in SODIUM CHLORIDE 0.9% 100 ML IV SCH ×2 (02:58→18:01)
[2018-03-05 06:10] LABS: Calcium 7.6 MG/DL (8.5-10.1); Potassium 4.3 MMOL/L (3.5-5.1)
[2018-03-05 06:14] LABS: Basophils % 0.2 % (0.0-0.8); Eosinophils # 0.2 10*3/uL (0.0-0.87); Eosinophils % 2.6 % (0.00-10.9); Hematocrit 28.4 VOL% (35.7-47.0); Hemoglobin 8.9 GM/DL (12.0-16.0); Immature Granulocytes % 1.1 %; Immature Granulocytes Absolute 0.06 #; Lymphocytes # 0.8 10*3/uL (1.4-4.0); Lymphocytes % 13.8 % (21.3-54.2); Mean Corpuscular HGB Conc 31.3 GM/DL (32-36); Mean Corpuscular Hemoglobin 28 PG (27-34); Mean Platelet Volume 12.4 FL (9.6-12.0); Monocytes # 0.6 10*3/uL (0.11-0.8); Monocytes % 10.3 % (1.7-12.7); Neutrophils # 4.1 10*3/uL (1.4-7.4); Platelet Count 171 T/CUMM (130-400); Red Blood Count 3.19 MC/CUMM (3.8-5.5); White Blood Count 5.7 T/CUMM (4-12)
[2018-03-05] MEDS: SODIUM CHLOR 0.9% KCL 40 MEQ 40 MEQ/1,000 ML BAG IV SCH ×2 (06:57→20:25)
[2018-03-05] MEDS: SERTRALINE 25 MG TABLET PO SCH (08:34)
[2018-03-05] MEDS: POTASSIUM CHLORIDE 20 MEQ TABLET PO SCH (08:34)
[2018-03-05] MEDS: TORSEMIDE 20 MG TABLET PO SCH (08:34)
[2018-03-05] MEDS: ALLOPURINOL 100 MG TABLET PO SCH (08:35)
[2018-03-05] MEDS: hydrALAZINE 25 MG TABLET PO SCH ×4 (08:35→20:37)
[2018-03-05] MEDS: PANTOPRAZOLE 40 MG TABLET PO SCH (08:35)
[2018-03-05] MEDS: metOLazone 5 MG TABLET PO SCH (08:35)
[2018-03-05] MEDS: ASCORBIC ACID 500 MG TABLET PO SCH ×2 (08:35→20:47)
[2018-03-05] MEDS: DILTIAZEM CD 180 MG CAPSULE PO SCH ×2 (08:35→20:32)
[2018-03-05] MEDS: FERROUS SULFATE 325 MG TABLET PO SCH ×2 (08:35→20:47)
[2018-03-05] MEDS: BISOPROLOL 5 MG TABLET PO SCH ×2 (08:35→20:46)
[2018-03-05] MEDS: POLYETHYLENE GLYCOL POWDER 17 GM PACK PO SCH (08:36)
[2018-03-05] MEDS: BUDESONIDE/FORMOTEROL 160-4.5 INHALER 6 GM INH SCH ×2 (08:36→20:54)
[2018-03-05] MEDS: APIXABAN 2.5 MG TABLET PO SCH ×2 (08:41→20:47)
[2018-03-05] MEDS ORDERED: MAGNESIUM SULF RIDER 2 GM in PREMIX 1 EACH IV PRN (08:43)
[2018-03-05] MEDS ORDERED: MAGNESIUM SULF RIDER 4 GM in PREMIX 1 EACH IV PRN (08:43)
[2018-03-05] MEDS ORDERED: APIXABAN 2.5 MG TABLET PO SCH (09:00)
[2018-03-05] MEDS: ONDANSETRON 4 MG/2 ML VIAL IV PRN (10:33)
[2018-03-05] MEDS: PROMETHAZINE 25 MG/1 ML VIAL IM PRN (11:21)
[2018-03-05] MEDS: MIRTAZAPINE 15 MG TABLET PO SCH (20:36)
[2018-03-05] MEDS: DOCUSATE SODIUM 100 MG CAPSULE PO SCH (20:39)
[2018-03-05] MEDS: INSULIN GLARGINE 100 UNIT/ML SUBCUT SCH (20:53)
[2018-03-06] MEDS: SODIUM CHLOR 0.9% KCL 40 MEQ 40 MEQ/1,000 ML BAG IV SCH ×2 (02:03→03:14)
[2018-03-06] MEDS: DOXYCYCLINE HYCLATE INJ 100 MG in SODIUM CHLORIDE 0.9% 100 ML IV SCH ×2 (04:09→16:20)
[2018-03-06] MEDS: INSULIN LISPRO 100 UNIT/ML SUBCUT SCH ×3 (06:09→18:29)
[2018-03-06 06:14] LABS: Basophils % 0.2 % (0.0-0.8); Eosinophils # 0.1 10*3/uL (0.0-0.87); Eosinophils % 1.7 % (0.00-10.9); Hematocrit 28.3 VOL% (35.7-47.0); Hemoglobin 8.9 GM/DL (12.0-16.0); Immature Granulocytes % 2.5 %; Immature Granulocytes Absolute 0.12 #; Lymphocytes # 0.6 10*3/uL (1.4-4.0); Lymphocytes % 12.8 % (21.3-54.2); Mean Corpuscular HGB Conc 31.4 GM/DL (32-36); Mean Corpuscular Hemoglobin 27 PG (27-34); Mean Corpuscular Volume 86.8 FL (87-102); Mean Platelet Volume 11.1 FL (9.6-12.0); Monocytes # 0.6 10*3/uL (0.11-0.8); Monocytes % 12.6 % (1.7-12.7); Neutrophils # 3.3 10*3/uL (1.4-7.4); Neutrophils % 70.2 % (38.7-73.9); Platelet Count 177 T/CUMM (130-400); Red Blood Count 3.26 MC/CUMM (3.8-5.5); Red Cell Distribution Width 19.3 % (9.3-17.3); White Blood Count 4.8 T/CUMM (4-12)
[2018-03-06 06:38] LABS: Calcium 8.1 MG/DL (8.5-10.1); Osmolality,Calculated 293.7 MOS/KG (273-304); Potassium 5.8 MMOL/L (3.5-5.1)
[2018-03-06] MEDS ORDERED: SODIUM POLYSTYRENE SULFATE 15 GM/60 ML BOTTLE PO ONE (08:43)
[2018-03-06] MEDS: PANTOPRAZOLE 40 MG TABLET PO SCH (09:20)
[2018-03-06] MEDS: SERTRALINE 25 MG TABLET PO SCH (09:20)
[2018-03-06] MEDS: hydrALAZINE 25 MG TABLET PO SCH ×4 (09:20→20:55)
[2018-03-06] MEDS: ALLOPURINOL 100 MG TABLET PO SCH (09:20)
[2018-03-06] MEDS: APIXABAN 2.5 MG TABLET PO SCH ×2 (09:21→20:49)
[2018-03-06] MEDS: FERROUS SULFATE 325 MG TABLET PO SCH ×2 (09:21→20:49)
[2018-03-06] MEDS: ASCORBIC ACID 500 MG TABLET PO SCH ×2 (09:21→20:49)
[2018-03-06] MEDS: methylPREDNISolone SOD SUC 40 MG/1 ML VIAL IV SCH ×2 (09:28→20:55)
[2018-03-06] MEDS: POLYETHYLENE GLYCOL POWDER 17 GM PACK PO SCH (09:29)
[2018-03-06] MEDS: BISOPROLOL 5 MG TABLET PO SCH ×2 (09:29→21:01)
[2018-03-06] MEDS: DILTIAZEM CD 180 MG CAPSULE PO SCH ×2 (09:29→20:54)
[2018-03-06] MEDS: BUDESONIDE/FORMOTEROL 160-4.5 INHALER 6 GM INH SCH ×2 (09:29→21:01)
[2018-03-06] MEDS: POTASSIUM CHLORIDE 20 MEQ TABLET PO SCH (09:29)
[2018-03-06] MEDS ORDERED: SODIUM POLYSTYRENE SULFATE 15 GM/60 ML BOTTLE PO PRN (09:45)
[2018-03-06] MEDS: ALBUTEROL/IPRATROPIUM 3 ML NEB RESP TX SCH ×2 (12:35→19:48)
[2018-03-06] MEDS: MIRTAZAPINE 15 MG TABLET PO SCH (20:49)
[2018-03-06] MEDS: DOCUSATE SODIUM 100 MG CAPSULE PO SCH (20:54)
[2018-03-06] MEDS: INSULIN GLARGINE 100 UNIT/ML SUBCUT SCH (21:00)
[2018-03-07] MEDS: INSULIN LISPRO 100 UNIT/ML SUBCUT SCH ×4 (00:57→17:46)
[2018-03-07] MEDS: ALBUTEROL/IPRATROPIUM 3 ML NEB RESP TX SCH ×4 (02:12→19:24)
[2018-03-07] MEDS: DOXYCYCLINE HYCLATE INJ 100 MG in SODIUM CHLORIDE 0.9% 100 ML IV SCH ×2 (03:27→15:25)
[2018-03-07] MEDS: methylPREDNISolone SOD SUC 40 MG/1 ML VIAL IV SCH ×2 (08:40→20:47)
[2018-03-07] MEDS: PANTOPRAZOLE 40 MG TABLET PO SCH (08:43)
[2018-03-07] MEDS: FERROUS SULFATE 325 MG TABLET PO SCH ×2 (08:43→20:57)
[2018-03-07] MEDS: BISOPROLOL 5 MG TABLET PO SCH ×2 (08:44→20:58)
[2018-03-07] MEDS: ALLOPURINOL 100 MG TABLET PO SCH (08:44)
[2018-03-07] MEDS: ASCORBIC ACID 500 MG TABLET PO SCH ×2 (08:45→20:57)
[2018-03-07] MEDS: DILTIAZEM CD 180 MG CAPSULE PO SCH ×2 (08:45→20:56)
[2018-03-07] MEDS: hydrALAZINE 25 MG TABLET PO SCH ×4 (08:45→20:57)
[2018-03-07] MEDS: APIXABAN 2.5 MG TABLET PO SCH ×2 (08:45→20:56)
[2018-03-07] MEDS: SERTRALINE 25 MG TABLET PO SCH (08:45)
[2018-03-07] MEDS: POLYETHYLENE GLYCOL POWDER 17 GM PACK PO SCH (08:47)
[2018-03-07] MEDS: BUDESONIDE/FORMOTEROL 160-4.5 INHALER 6 GM INH SCH ×2 (08:51→21:06)
[2018-03-07 10:03] LABS: Calcium 8.5 MG/DL (8.5-10.1); Potassium 5.4 MMOL/L (3.5-5.1)
[2018-03-07] MEDS: ONDANSETRON 4 MG/2 ML VIAL IV PRN (15:29)
[2018-03-07] MEDS: MAGNESIUM HYDROXIDE SUSP 30 ML UDCUP PO PRN (19:33)
[2018-03-07] MEDS: DOCUSATE SODIUM 100 MG CAPSULE PO SCH (20:59)
[2018-03-07] MEDS: MIRTAZAPINE 15 MG TABLET PO SCH (20:59)
[2018-03-07] MEDS: INSULIN GLARGINE 100 UNIT/ML SUBCUT SCH (21:07)
[2018-03-08] MEDS: ALBUTEROL/IPRATROPIUM 3 ML NEB RESP TX SCH ×4 (00:55→19:19)
[2018-03-08] MEDS: INSULIN LISPRO 100 UNIT/ML SUBCUT SCH ×4 (01:23→18:01)
[2018-03-08] MEDS: DOXYCYCLINE HYCLATE INJ 100 MG in SODIUM CHLORIDE 0.9% 100 ML IV SCH ×2 (03:33→15:10)
[2018-03-08] MEDS: MAGNESIUM HYDROXIDE SUSP 30 ML UDCUP PO PRN (03:40)
[2018-03-08 07:21] LABS: Calcium 8.3 MG/DL (8.5-10.1)
[2018-03-08 07:22] LABS: Osmolality,Calculated 304.8 MOS/KG (273-304)
[2018-03-08 07:35] LABS: Potassium 6.1 MMOL/L (3.5-5.1)
[2018-03-08] MEDS: methylPREDNISolone SOD SUC 40 MG/1 ML VIAL IV SCH ×2 (08:55→20:35)
[2018-03-08] MEDS: TORSEMIDE 20 MG TABLET PO SCH (08:56)
[2018-03-08] MEDS: DILTIAZEM CD 180 MG CAPSULE PO SCH ×2 (08:57→20:34)
[2018-03-08] MEDS: BISOPROLOL 5 MG TABLET PO SCH ×2 (08:57→20:35)
[2018-03-08] MEDS: PANTOPRAZOLE 40 MG TABLET PO SCH (08:58)
[2018-03-08] MEDS: APIXABAN 2.5 MG TABLET PO SCH ×2 (08:58→20:33)
[2018-03-08] MEDS: SERTRALINE 25 MG TABLET PO SCH (08:58)
[2018-03-08] MEDS: ASCORBIC ACID 500 MG TABLET PO SCH ×2 (08:58→20:34)
[2018-03-08] MEDS: ALLOPURINOL 100 MG TABLET PO SCH (08:58)
[2018-03-08] MEDS: hydrALAZINE 25 MG TABLET PO SCH ×4 (08:58→20:34)
[2018-03-08] MEDS: BUDESONIDE/FORMOTEROL 160-4.5 INHALER 6 GM INH SCH ×2 (08:59→20:40)
[2018-03-08] MEDS: POLYETHYLENE GLYCOL POWDER 17 GM PACK PO SCH (09:00)
[2018-03-08] MEDS: FERROUS SULFATE 325 MG TABLET PO SCH ×2 (09:04→20:34)
[2018-03-08] MEDS: metOLazone 5 MG TABLET PO SCH (09:05)
[2018-03-08] MEDS: SODIUM BICARB INJ 100 MEQ in DEXTROSE 5% 1,000 ML IV SCH (10:41)
[2018-03-08] MEDS: DOCUSATE SODIUM 100 MG CAPSULE PO SCH (20:34)
[2018-03-08] MEDS: MIRTAZAPINE 15 MG TABLET PO SCH (20:34)
[2018-03-08] MEDS: INSULIN GLARGINE 100 UNIT/ML SUBCUT SCH (20:35)
[2018-03-09] MEDS: INSULIN LISPRO 100 UNIT/ML SUBCUT SCH ×4 (00:04→18:20)
[2018-03-09] MEDS: ALBUTEROL/IPRATROPIUM 3 ML NEB RESP TX SCH ×4 (00:18→20:10)
[2018-03-09] MEDS: SODIUM BICARB INJ 100 MEQ in DEXTROSE 5% 1,000 ML IV SCH ×2 (00:53→16:16)
[2018-03-09] MEDS: DOXYCYCLINE HYCLATE INJ 100 MG in SODIUM CHLORIDE 0.9% 100 ML IV SCH ×2 (03:39→16:18)
[2018-03-09] MEDS: DILTIAZEM CD 180 MG CAPSULE PO SCH ×2 (08:50→21:18)
[2018-03-09] MEDS: FERROUS SULFATE 325 MG TABLET PO SCH ×2 (08:51→21:09)
[2018-03-09] MEDS: BUDESONIDE/FORMOTEROL 160-4.5 INHALER 6 GM INH SCH ×2 (08:51→21:19)
[2018-03-09] MEDS: PANTOPRAZOLE 40 MG TABLET PO SCH (08:51)
[2018-03-09] MEDS: APIXABAN 2.5 MG TABLET PO SCH ×2 (08:52→21:09)
[2018-03-09] MEDS: hydrALAZINE 25 MG TABLET PO SCH ×4 (08:52→21:09)
[2018-03-09] MEDS: SERTRALINE 25 MG TABLET PO SCH (08:52)
[2018-03-09] MEDS: ASCORBIC ACID 500 MG TABLET PO SCH ×2 (08:52→21:10)
[2018-03-09] MEDS: ALLOPURINOL 100 MG TABLET PO SCH (08:52)
[2018-03-09] MEDS: BISOPROLOL 5 MG TABLET PO SCH ×2 (08:52→21:09)
[2018-03-09 08:56] LABS: Basophils % 0.1 % (0.0-0.8); Hematocrit 28.2 VOL% (35.7-47.0); Hemoglobin 8.5 GM/DL (12.0-16.0); Immature Granulocytes % 6.3 %; Immature Granulocytes Absolute 0.97 #; Lymphocytes # 0.6 10*3/uL (1.4-4.0); Lymphocytes % 3.7 % (21.3-54.2); Mean Corpuscular HGB Conc 30.1 GM/DL (32-36); Mean Corpuscular Hemoglobin 27 PG (27-34); Mean Corpuscular Volume 89.5 FL (87-102); Mean Platelet Volume 9.9 FL (9.6-12.0); Monocytes # 0.7 10*3/uL (0.11-0.8); Monocytes % 4.4 % (1.7-12.7); NRBC # 0.09 10*3/uL; Neutrophils # 13.1 10*3/uL (1.4-7.4); Neutrophils % 85.5 % (38.7-73.9); Platelet Count 219 T/CUMM (130-400); Red Blood Count 3.15 MC/CUMM (3.8-5.5); Red Cell Distribution Width 20.2 % (9.3-17.3); White Blood Count 15.3 T/CUMM (4-12)
[2018-03-09] MEDS: POLYETHYLENE GLYCOL POWDER 17 GM PACK PO SCH (08:59)
[2018-03-09 09:11] LABS: Calcium 8.5 MG/DL (8.5-10.1); Osmolality,Calculated 294.2 MOS/KG (273-304); Potassium 4.5 MMOL/L (3.5-5.1)
[2018-03-09 09:18] LABS: Band Neutrophils 4 % (0-10); Hypochromasia 1+; Lymphocytes 7 % (20-55); Ovalocytes Slight; Platelet Estimate Adequate; Segmented Neutrophils 85 % (50-85); Total Cells Counted 100
[2018-03-09] MEDS: MIRTAZAPINE 15 MG TABLET PO SCH (21:09)
[2018-03-09] MEDS: DOCUSATE SODIUM 100 MG CAPSULE PO SCH (21:10)
[2018-03-09] MEDS: INSULIN GLARGINE 100 UNIT/ML SUBCUT SCH (21:19)
[2018-03-10] MEDS: ALBUTEROL/IPRATROPIUM 3 ML NEB RESP TX SCH ×4 (00:31→19:51)
[2018-03-10] MEDS: INSULIN LISPRO 100 UNIT/ML SUBCUT SCH ×5 (01:04→23:00)
[2018-03-10] MEDS: DOXYCYCLINE HYCLATE INJ 100 MG in SODIUM CHLORIDE 0.9% 100 ML IV SCH ×2 (04:56→16:16)
[2018-03-10 05:52] LABS: Basophils % 0.1 % (0.0-0.8); Hematocrit 24.4 VOL% (35.7-47.0); Immature Granulocytes % 8.2 %; Immature Granulocytes Absolute 1.06 #; Lymphocytes # 0.7 10*3/uL (1.4-4.0); Lymphocytes % 5.4 % (21.3-54.2); Mean Corpuscular HGB Conc 30.3 GM/DL (32-36); Mean Corpuscular Hemoglobin 27 PG (27-34); Mean Corpuscular Volume 87.8 FL (87-102); Mean Platelet Volume 11.2 FL (9.6-12.0); Monocytes % 8.1 % (1.7-12.7); NRBC # 0.08 10*3/uL; Neutrophils # 10.1 10*3/uL (1.4-7.4); Neutrophils % 78.2 % (38.7-73.9); Platelet Count 199 T/CUMM (130-400); Red Blood Count 2.78 MC/CUMM (3.8-5.5); Red Cell Distribution Width 19.9 % (9.3-17.3); White Blood Count 12.9 T/CUMM (4-12)
[2018-03-10 05:55] LABS: Hemoglobin 7.4 GM/DL (12.0-16.0)
[2018-03-10 05:58] LABS: Osmolality,Calculated 302.1 MOS/KG (273-304); Potassium 4.3 MMOL/L (3.5-5.1)
[2018-03-10 06:05] LABS: Band Neutrophils 11 % (0-10); Lymphocytes 9 % (20-55); Ovalocytes Slight; Platelet Estimate Normal; Segmented Neutrophils 70 % (50-85); Tear Drop Cells Slight; Total Cells Counted 100
[2018-03-10] MEDS: SODIUM BICARB INJ 100 MEQ in DEXTROSE 5% 1,000 ML IV SCH (09:11)
[2018-03-10] MEDS: BISOPROLOL 5 MG TABLET PO SCH ×2 (09:11→22:20)
[2018-03-10] MEDS: ALLOPURINOL 100 MG TABLET PO SCH (09:11)
[2018-03-10] MEDS: SERTRALINE 25 MG TABLET PO SCH (09:11)
[2018-03-10] MEDS: ASCORBIC ACID 500 MG TABLET PO SCH ×2 (09:12→22:20)
[2018-03-10] MEDS: POLYETHYLENE GLYCOL POWDER 17 GM PACK PO SCH (09:12)
[2018-03-10] MEDS: FERROUS SULFATE 325 MG TABLET PO SCH (09:12)
[2018-03-10] MEDS: PANTOPRAZOLE 40 MG TABLET PO SCH (09:12)
[2018-03-10] MEDS: DILTIAZEM CD 180 MG CAPSULE PO SCH ×2 (09:12→22:21)
[2018-03-10] MEDS: APIXABAN 2.5 MG TABLET PO SCH ×2 (09:12→22:20)
[2018-03-10] MEDS: hydrALAZINE 25 MG TABLET PO SCH ×4 (09:13→22:22)
[2018-03-10] MEDS: BUDESONIDE/FORMOTEROL 160-4.5 INHALER 6 GM INH SCH ×2 (09:17→22:23)
[2018-03-10] MEDS: ONDANSETRON 4 MG/2 ML VIAL IV PRN ×2 (09:49→20:42)
[2018-03-10] MEDS ORDERED: ONDANSETRON 4 MG/2 ML VIAL IV ONE (13:32)
[2018-03-10] MEDS ORDERED: SODIUM CHLORIDE 0.9% 1,000 ML IV PRN (15:17)
[2018-03-10] MEDS: MIRTAZAPINE 15 MG TABLET PO SCH (22:20)
[2018-03-10] MEDS: DOCUSATE SODIUM 100 MG CAPSULE PO SCH (22:21)
[2018-03-10] MEDS: INSULIN GLARGINE 100 UNIT/ML SUBCUT SCH (22:22)
[2018-03-11] MEDS: ALBUTEROL/IPRATROPIUM 3 ML NEB RESP TX SCH ×4 (00:37→22:09)
[2018-03-11 05:48] LABS: Basophils % 0.3 % (0.0-0.8); Eosinophils % 0.1 % (0.00-10.9); Hematocrit 31.6 VOL% (35.7-47.0); Hemoglobin 9.9 GM/DL (12.0-16.0); Immature Granulocytes % 13.3 %; Lymphocytes % 7.4 % (21.3-54.2); Mean Corpuscular HGB Conc 31.3 GM/DL (32-36); Mean Corpuscular Hemoglobin 28 PG (27-34); Mean Corpuscular Volume 87.8 FL (87-102); Mean Platelet Volume 11.3 FL (9.6-12.0); Monocytes # 1.4 10*3/uL (0.11-0.8); Monocytes % 10.3 % (1.7-12.7); NRBC # 0.12 10*3/uL; Neutrophils # 9.3 10*3/uL (1.4-7.4); Neutrophils % 68.6 % (38.7-73.9); Platelet Count 209 T/CUMM (130-400); Red Cell Distribution Width 19.9 % (9.3-17.3); White Blood Count 13.5 T/CUMM (4-12)
[2018-03-11] MEDS: INSULIN LISPRO 100 UNIT/ML SUBCUT SCH ×3 (05:54→18:56)
[2018-03-11] MEDS: DOXYCYCLINE HYCLATE INJ 100 MG in SODIUM CHLORIDE 0.9% 100 ML IV SCH ×2 (05:55→16:49)
[2018-03-11 05:57] LABS: Osmolality,Calculated 305.5 MOS/KG (273-304)
[2018-03-11 06:37] LABS: Band Neutrophils 1 % (0-10); Hypochromasia 1+; Lymphocytes 9 % (20-55); Ovalocytes Slight; Platelet Estimate Adequate; Segmented Neutrophils 83 % (50-85); Total Cells Counted 100
[2018-03-11] MEDS: BUDESONIDE/FORMOTEROL 160-4.5 INHALER 6 GM INH SCH ×2 (09:13→22:04)
[2018-03-11] MEDS: TORSEMIDE 20 MG TABLET PO SCH (09:14)
[2018-03-11] MEDS: PANTOPRAZOLE 40 MG TABLET PO SCH (09:15)
[2018-03-11] MEDS: ALLOPURINOL 100 MG TABLET PO SCH (09:15)
[2018-03-11] MEDS: BISOPROLOL 5 MG TABLET PO SCH ×2 (09:15→22:04)
[2018-03-11] MEDS: ASCORBIC ACID 500 MG TABLET PO SCH ×2 (09:16→22:04)
[2018-03-11] MEDS: DILTIAZEM CD 180 MG CAPSULE PO SCH ×2 (09:16→22:03)
[2018-03-11] MEDS: SERTRALINE 25 MG TABLET PO SCH (09:16)
[2018-03-11] MEDS: hydrALAZINE 25 MG TABLET PO SCH ×4 (09:16→22:03)
[2018-03-11] MEDS: metOLazone 5 MG TABLET PO SCH (09:16)
[2018-03-11] MEDS: APIXABAN 2.5 MG TABLET PO SCH ×2 (09:16→22:04)
[2018-03-11] MEDS: POLYETHYLENE GLYCOL POWDER 17 GM PACK PO SCH (09:17)
[2018-03-11] MEDS: ONDANSETRON 4 MG/2 ML VIAL IV PRN (12:00)
[2018-03-11] MEDS: DOCUSATE SODIUM 100 MG CAPSULE PO SCH (22:03)
[2018-03-11] MEDS: MIRTAZAPINE 15 MG TABLET PO SCH (22:04)
[2018-03-11] MEDS: INSULIN GLARGINE 100 UNIT/ML SUBCUT SCH (22:04)
[2018-03-12] MEDS: INSULIN LISPRO 100 UNIT/ML SUBCUT SCH ×4 (01:47→18:28)
[2018-03-12] MEDS: DOXYCYCLINE HYCLATE INJ 100 MG in SODIUM CHLORIDE 0.9% 100 ML IV SCH ×2 (03:37→16:34)
[2018-03-12 06:40] LABS: Calcium 7.9 MG/DL (8.5-10.1); Osmolality,Calculated 301.5 MOS/KG (273-304); Potassium 3.3 MMOL/L (3.5-5.1)
[2018-03-12] MEDS: ALBUTEROL/IPRATROPIUM 3 ML NEB RESP TX SCH ×4 (07:23→20:20)
[2018-03-12] MEDS: ONDANSETRON 4 MG/2 ML VIAL IV PRN ×2 (07:42→12:12)
[2018-03-12] MEDS ORDERED: POTASSIUM CHLORIDE 20 MEQ TABLET PO ONE (08:46)
[2018-03-12] MEDS: PANTOPRAZOLE 40 MG TABLET PO SCH (11:46)
[2018-03-12] MEDS: TORSEMIDE 20 MG TABLET PO SCH (11:46)
[2018-03-12] MEDS: metOLazone 5 MG TABLET PO SCH (11:47)
[2018-03-12] MEDS: ALLOPURINOL 100 MG TABLET PO SCH (11:47)
[2018-03-12] MEDS: BUDESONIDE/FORMOTEROL 160-4.5 INHALER 6 GM INH SCH ×2 (11:47→20:50)
[2018-03-12] MEDS: DILTIAZEM CD 180 MG CAPSULE PO SCH ×2 (11:47→20:48)
[2018-03-12] MEDS: hydrALAZINE 25 MG TABLET PO SCH ×4 (11:48→20:49)
[2018-03-12] MEDS: ASCORBIC ACID 500 MG TABLET PO SCH ×2 (11:48→20:50)
[2018-03-12] MEDS: APIXABAN 2.5 MG TABLET PO SCH ×2 (11:48→23:00)
[2018-03-12] MEDS: SERTRALINE 25 MG TABLET PO SCH (11:48)
[2018-03-12] MEDS: POLYETHYLENE GLYCOL POWDER 17 GM PACK PO SCH (11:49)
[2018-03-12] MEDS: BISOPROLOL 5 MG TABLET PO SCH ×2 (11:49→20:49)
[2018-03-12 12:33] LABS: PT Patient Result 10.5 SECS
[2018-03-12 18:54] LABS: Basophils % 0.1 % (0.0-0.8); Eosinophils % 0.1 % (0.00-10.9); Hematocrit 27.1 VOL% (35.7-47.0); Hemoglobin 8.5 GM/DL (12.0-16.0); Immature Granulocytes % 9.5 %; Lymphocytes # 0.8 10*3/uL (1.4-4.0); Lymphocytes % 6.1 % (21.3-54.2); Mean Corpuscular HGB Conc 31.4 GM/DL (32-36); Mean Corpuscular Hemoglobin 28 PG (27-34); Mean Corpuscular Volume 88.6 FL (87-102); Mean Platelet Volume 9.8 FL (9.6-12.0); Monocytes # 0.8 10*3/uL (0.11-0.8); Monocytes % 6.4 % (1.7-12.7); NRBC # 0.03 10*3/uL; Neutrophils # 9.8 10*3/uL (1.4-7.4); Neutrophils % 77.8 % (38.7-73.9); Platelet Count 170 T/CUMM (130-400); Red Blood Count 3.06 MC/CUMM (3.8-5.5); Red Cell Distribution Width 19.6 % (9.3-17.3); White Blood Count 12.6 T/CUMM (4-12)
[2018-03-12 19:25] LABS: Band Neutrophils 2 % (0-10); Lymphocytes 7 % (20-55); Metamyelocytes 2 %; Myelocytes 2 %; Segmented Neutrophils 81 % (50-85)
[2018-03-12 19:26] LABS: Hypochromasia 1+; Platelet Estimate Normal; Polychromasia Few
[2018-03-12 19:28] LABS: Ovalocytes Few; Total Cells Counted 100
[2018-03-12] MEDS: HEPARIN DRIP 25,000 UNITS/500 ML PREMIX IV SCH (20:47)
[2018-03-12] MEDS: MIRTAZAPINE 15 MG TABLET PO SCH (20:49)
[2018-03-12] MEDS: DOCUSATE SODIUM 100 MG CAPSULE PO SCH (20:50)
[2018-03-12] MEDS: INSULIN GLARGINE 100 UNIT/ML SUBCUT SCH (20:50)
[2018-03-13] MEDS: INSULIN LISPRO 100 UNIT/ML SUBCUT SCH ×4 (00:40→18:02)
[2018-03-13] MEDS: ALBUTEROL/IPRATROPIUM 3 ML NEB RESP TX SCH ×4 (00:40→19:18)
[2018-03-13 03:31] LABS: Basophils % 0.1 % (0.0-0.8); Eosinophils % 0.3 % (0.00-10.9); Hematocrit 24.6 VOL% (35.7-47.0); Hemoglobin 7.7 GM/DL (12.0-16.0); Immature Granulocytes % 10.3 %; Immature Granulocytes Absolute 1.06 #; Lymphocytes # 0.9 10*3/uL (1.4-4.0); Lymphocytes % 8.4 % (21.3-54.2); Mean Corpuscular HGB Conc 31.3 GM/DL (32-36); Mean Corpuscular Hemoglobin 27 PG (27-34); Mean Corpuscular Volume 86.6 FL (87-102); Mean Platelet Volume 11.3 FL (9.6-12.0); Monocytes # 0.8 10*3/uL (0.11-0.8); Monocytes % 8.1 % (1.7-12.7); NRBC # 0.02 10*3/uL; Neutrophils # 7.5 10*3/uL (1.4-7.4); Neutrophils % 72.8 % (38.7-73.9); Platelet Count 169 T/CUMM (130-400); Red Blood Count 2.84 MC/CUMM (3.8-5.5); Red Cell Distribution Width 19.5 % (9.3-17.3); White Blood Count 10.3 T/CUMM (4-12)
[2018-03-13] MEDS: DOXYCYCLINE HYCLATE INJ 100 MG in SODIUM CHLORIDE 0.9% 100 ML IV SCH ×2 (03:42→15:30)
[2018-03-13 04:39] LABS: Band Neutrophils 3 % (0-10); Lymphocytes 5 % (20-55); Myelocytes 1 %; Segmented Neutrophils 86 % (50-85); Total Cells Counted 100
[2018-03-13 04:40] LABS: Hypochromasia 1+; Platelet Estimate Normal; Polychromasia 1+
[2018-03-13 04:41] LABS: Ovalocytes Few
[2018-03-13 07:47] LABS: Calcium 8.4 MG/DL (8.5-10.1); Osmolality,Calculated 302.8 MOS/KG (273-304); Potassium 3.5 MMOL/L (3.5-5.1)
[2018-03-13] MEDS ORDERED: SODIUM CHLORIDE 0.9% 1,000 ML IV PRN (07:47)
[2018-03-13] MEDS: DILTIAZEM CD 180 MG CAPSULE PO SCH ×2 (09:37→21:25)
[2018-03-13] MEDS: hydrALAZINE 25 MG TABLET PO SCH ×4 (09:37→21:26)
[2018-03-13] MEDS: TORSEMIDE 20 MG TABLET PO SCH (09:38)
[2018-03-13] MEDS: ASCORBIC ACID 500 MG TABLET PO SCH ×2 (09:39→21:25)
[2018-03-13] MEDS: POLYETHYLENE GLYCOL POWDER 17 GM PACK PO SCH (09:39)
[2018-03-13] MEDS: PANTOPRAZOLE 40 MG TABLET PO SCH (09:39)
[2018-03-13] MEDS: ALLOPURINOL 100 MG TABLET PO SCH (09:40)
[2018-03-13] MEDS: metOLazone 5 MG TABLET PO SCH (09:40)
[2018-03-13] MEDS: BISOPROLOL 5 MG TABLET PO SCH ×2 (09:40→21:25)
[2018-03-13] MEDS: SERTRALINE 25 MG TABLET PO SCH (09:40)
[2018-03-13] MEDS: BUDESONIDE/FORMOTEROL 160-4.5 INHALER 6 GM INH SCH ×2 (10:34→21:25)
[2018-03-13] MEDS: HEPARIN DRIP 25,000 UNITS/500 ML PREMIX IV SCH (18:38)
[2018-03-13] MEDS: DOCUSATE SODIUM 100 MG CAPSULE PO SCH (21:25)
[2018-03-13] MEDS: INSULIN GLARGINE 100 UNIT/ML SUBCUT SCH (21:25)
[2018-03-13] MEDS: MIRTAZAPINE 15 MG TABLET PO SCH (21:28)
[2018-03-14] MEDS: ALBUTEROL/IPRATROPIUM 3 ML NEB RESP TX SCH ×4 (00:19→19:23)
[2018-03-14] MEDS: INSULIN LISPRO 100 UNIT/ML SUBCUT SCH ×4 (00:52→18:57)
[2018-03-14] MEDS: DOXYCYCLINE HYCLATE INJ 100 MG in SODIUM CHLORIDE 0.9% 100 ML IV SCH ×2 (02:46→15:45)
[2018-03-14] MEDS: HEPARIN DRIP 25,000 UNITS/500 ML PREMIX IV SCH ×2 (04:55→18:17)
[2018-03-14 05:21] LABS: Basophils % 0.1 % (0.0-0.8); Eosinophils % 0.3 % (0.00-10.9); Hemoglobin 9.5 GM/DL (12.0-16.0); Immature Granulocytes Absolute 0.81 #; Lymphocytes # 0.9 10*3/uL (1.4-4.0); Lymphocytes % 7.6 % (21.3-54.2); Mean Corpuscular HGB Conc 32.8 GM/DL (32-36); Mean Corpuscular Hemoglobin 29 PG (27-34); Mean Corpuscular Volume 87.6 FL (87-102); Mean Platelet Volume 10.9 FL (9.6-12.0); Monocytes # 0.9 10*3/uL (0.11-0.8); Monocytes % 7.6 % (1.7-12.7); NRBC # 0.02 10*3/uL; Neutrophils # 8.9 10*3/uL (1.4-7.4); Neutrophils % 77.4 % (38.7-73.9); Platelet Count 134 T/CUMM (130-400); Red Blood Count 3.31 MC/CUMM (3.8-5.5); Red Cell Distribution Width 17.2 % (9.3-17.3); White Blood Count 11.5 T/CUMM (4-12)
[2018-03-14 05:53] LABS: Calcium 7.7 MG/DL (8.5-10.1); Osmolality,Calculated 302.5 MOS/KG (273-304); Potassium 3.1 MMOL/L (3.5-5.1)
[2018-03-14 06:31] LABS: Lymphocytes 6 % (20-55); Metamyelocytes 2 %; Nucleated Red Blood Cells 1 (0-5); Platelet Estimate Decreased; Polychromasia Few; Segmented Neutrophils 88 % (50-85); Total Cells Counted 100
[2018-03-14 06:32] LABS: Hypochromasia Slight
[2018-03-14] MEDS: hydrALAZINE 25 MG TABLET PO SCH ×4 (09:25→20:58)
[2018-03-14] MEDS: DILTIAZEM CD 180 MG CAPSULE PO SCH ×2 (09:25→20:59)
[2018-03-14] MEDS: POLYETHYLENE GLYCOL POWDER 17 GM PACK PO SCH (09:26)
[2018-03-14] MEDS: metOLazone 5 MG TABLET PO SCH (09:27)
[2018-03-14] MEDS: ASCORBIC ACID 500 MG TABLET PO SCH ×2 (09:27→20:59)
[2018-03-14] MEDS: SERTRALINE 25 MG TABLET PO SCH (09:27)
[2018-03-14] MEDS: ALLOPURINOL 100 MG TABLET PO SCH (09:27)
[2018-03-14] MEDS: BISOPROLOL 5 MG TABLET PO SCH ×2 (09:27→22:50)
[2018-03-14] MEDS: PANTOPRAZOLE 40 MG TABLET PO SCH (09:27)
[2018-03-14] MEDS: POTASSIUM CHLORIDE 20 MEQ TABLET PO PRN ×3 (09:38→17:19)
[2018-03-14] MEDS: TORSEMIDE 20 MG TABLET PO SCH (10:22)
[2018-03-14] MEDS: BUDESONIDE/FORMOTEROL 160-4.5 INHALER 6 GM INH SCH ×2 (10:23→22:50)
[2018-03-14] MEDS: MUPIROCIN 2% OINT 22 GM TUBE TOP SCH ×3 (11:23→21:00)
[2018-03-14] MEDS ORDERED: COCAINE SUBSTITUTE 30 ML BOTTLE TOP STA (18:26)
[2018-03-14] MEDS ORDERED: SILVER NITRATE STICK 1 EACH TOP STA (18:33)
[2018-03-14] MEDS: ONDANSETRON 4 MG/2 ML VIAL IV PRN (19:15)
[2018-03-14] MEDS: MIRTAZAPINE 15 MG TABLET PO SCH (20:59)
[2018-03-14] MEDS: INSULIN GLARGINE 100 UNIT/ML SUBCUT SCH (21:00)
[2018-03-14] MEDS: DOCUSATE SODIUM 100 MG CAPSULE PO SCH (21:00)
[2018-03-15] MEDS: INSULIN LISPRO 100 UNIT/ML SUBCUT SCH ×4 (01:17→17:39)
[2018-03-15] MEDS: ALBUTEROL/IPRATROPIUM 3 ML NEB RESP TX SCH ×4 (01:23→19:22)
[2018-03-15 03:41] LABS: Basophils % 0.1 % (0.0-0.8); Eosinophils % 0.2 % (0.00-10.9); Hematocrit 27.5 VOL% (35.7-47.0); Hemoglobin 9.2 GM/DL (12.0-16.0); Immature Granulocytes % 4.1 %; Lymphocytes # 0.8 10*3/uL (1.4-4.0); Lymphocytes % 6.5 % (21.3-54.2); Mean Corpuscular HGB Conc 33.5 GM/DL (32-36); Mean Corpuscular Hemoglobin 29 PG (27-34); Mean Corpuscular Volume 85.7 FL (87-102); Mean Platelet Volume 11.2 FL (9.6-12.0); Monocytes # 1.1 10*3/uL (0.11-0.8); Monocytes % 8.8 % (1.7-12.7); Neutrophils # 9.8 10*3/uL (1.4-7.4); Neutrophils % 80.3 % (38.7-73.9); Platelet Count 130 T/CUMM (130-400); Red Blood Count 3.21 MC/CUMM (3.8-5.5); Red Cell Distribution Width 17.8 % (9.3-17.3); White Blood Count 12.2 T/CUMM (4-12)
[2018-03-15 04:04] LABS: Calcium 8.2 MG/DL (8.5-10.1); Osmolality,Calculated 298.7 MOS/KG (273-304); Potassium 3.4 MMOL/L (3.5-5.1)
[2018-03-15] MEDS: DOXYCYCLINE HYCLATE INJ 100 MG in SODIUM CHLORIDE 0.9% 100 ML IV SCH ×2 (04:25→16:49)
[2018-03-15] MEDS ORDERED: FUROSEMIDE 40 MG/4 ML VIAL IV ONE (08:05)
[2018-03-15] MEDS: BUDESONIDE/FORMOTEROL 160-4.5 INHALER 6 GM INH SCH ×2 (10:15→20:45)
[2018-03-15] MEDS: POLYETHYLENE GLYCOL POWDER 17 GM PACK PO SCH (10:26)
[2018-03-15] MEDS: ASCORBIC ACID 500 MG TABLET PO SCH ×2 (10:26→20:36)
[2018-03-15] MEDS: BISOPROLOL 5 MG TABLET PO SCH ×2 (10:26→20:35)
[2018-03-15] MEDS: TORSEMIDE 20 MG TABLET PO SCH (10:26)
[2018-03-15] MEDS: DILTIAZEM CD 180 MG CAPSULE PO SCH ×2 (10:26→20:35)
[2018-03-15] MEDS: SERTRALINE 25 MG TABLET PO SCH (10:27)
[2018-03-15] MEDS: metOLazone 5 MG TABLET PO SCH (10:27)
[2018-03-15] MEDS: MUPIROCIN 2% OINT 22 GM TUBE TOP SCH ×4 (10:27→20:33)
[2018-03-15] MEDS: ALLOPURINOL 100 MG TABLET PO SCH (10:27)
[2018-03-15] MEDS: hydrALAZINE 25 MG TABLET PO SCH ×4 (10:27→20:36)
[2018-03-15] MEDS: PANTOPRAZOLE 40 MG TABLET PO SCH (10:27)
[2018-03-15] MEDS ORDERED: HEPARIN DRIP 25,000 UNITS/500 ML PREMIX IV SCH (15:30)
[2018-03-15] MEDS: ONDANSETRON 4 MG/2 ML VIAL IV PRN (15:40)
[2018-03-15] MEDS: DOCUSATE SODIUM 100 MG CAPSULE PO SCH (20:35)
[2018-03-15] MEDS: MIRTAZAPINE 15 MG TABLET PO SCH (20:36)
[2018-03-15] MEDS: INSULIN GLARGINE 100 UNIT/ML SUBCUT SCH (20:54)
[2018-03-16] MEDS: ALBUTEROL/IPRATROPIUM 3 ML NEB RESP TX SCH ×4 (00:15→19:02)
[2018-03-16] MEDS: INSULIN LISPRO 100 UNIT/ML SUBCUT SCH ×4 (00:25→18:00)
[2018-03-16 05:41] LABS: Basophils % 0.1 % (0.0-0.8); Eosinophils % 0.3 % (0.00-10.9); Hematocrit 26.3 VOL% (35.7-47.0); Immature Granulocytes % 4.8 %; Immature Granulocytes Absolute 0.55 #; Lymphocytes # 0.9 10*3/uL (1.4-4.0); Lymphocytes % 7.9 % (21.3-54.2); Mean Corpuscular HGB Conc 34.2 GM/DL (32-36); Mean Corpuscular Hemoglobin 30 PG (27-34); Mean Corpuscular Volume 86.2 FL (87-102); Mean Platelet Volume 10.8 FL (9.6-12.0); Monocytes # 1.2 10*3/uL (0.11-0.8); Monocytes % 10.6 % (1.7-12.7); Neutrophils # 8.8 10*3/uL (1.4-7.4); Neutrophils % 76.3 % (38.7-73.9); Platelet Count 119 T/CUMM (130-400); Red Blood Count 3.05 MC/CUMM (3.8-5.5); Red Cell Distribution Width 17.9 % (9.3-17.3); White Blood Count 11.5 T/CUMM (4-12)
[2018-03-16 06:03] LABS: Band Neutrophils 2 % (0-10); Eosinophils 2 % (0-10); Lymphocytes 6 % (20-55); Segmented Neutrophils 83 % (50-85); Total Cells Counted 100
[2018-03-16 06:04] LABS: Hypochromasia Slight; Microcytosis 1+; Ovalocytes Slight; Polychromasia Slight
[2018-03-16 06:05] LABS: Platelet Estimate Adequate
[2018-03-16 06:07] LABS: Potassium 3.6 MMOL/L (3.5-5.1)
[2018-03-16] MEDS: DOXYCYCLINE HYCLATE INJ 100 MG in SODIUM CHLORIDE 0.9% 100 ML IV SCH (06:39)
[2018-03-16] MEDS: PROMETHAZINE 25 MG/1 ML VIAL IM PRN (07:41)
[2018-03-16] MEDS: TORSEMIDE 20 MG TABLET PO SCH (08:40)
[2018-03-16] MEDS: ASCORBIC ACID 500 MG TABLET PO SCH ×2 (08:41→21:24)
[2018-03-16] MEDS: DILTIAZEM CD 180 MG CAPSULE PO SCH ×2 (08:41→21:23)
[2018-03-16] MEDS: SERTRALINE 25 MG TABLET PO SCH (08:41)
[2018-03-16] MEDS: PANTOPRAZOLE 40 MG TABLET PO SCH (08:41)
[2018-03-16] MEDS: hydrALAZINE 25 MG TABLET PO SCH ×4 (08:43→21:23)
[2018-03-16] MEDS: POLYETHYLENE GLYCOL POWDER 17 GM PACK PO SCH (08:44)
[2018-03-16] MEDS: BISOPROLOL 5 MG TABLET PO SCH ×2 (08:44→21:22)
[2018-03-16] MEDS: BUDESONIDE/FORMOTEROL 160-4.5 INHALER 6 GM INH SCH ×2 (08:44→21:25)
[2018-03-16] MEDS: metOLazone 5 MG TABLET PO SCH (08:53)
[2018-03-16] MEDS: ALLOPURINOL 100 MG TABLET PO SCH (08:53)
[2018-03-16] MEDS: MUPIROCIN 2% OINT 22 GM TUBE TOP SCH ×3 (09:03→21:07)
[2018-03-16 09:52] LABS: PT Patient Result 10.3 SECS
[2018-03-16] MEDS: ONDANSETRON 4 MG/2 ML VIAL IV PRN (16:11)
[2018-03-16] MEDS: INSULIN GLARGINE 100 UNIT/ML SUBCUT SCH (21:15)
[2018-03-16] MEDS: MIRTAZAPINE 15 MG TABLET PO SCH (21:22)
[2018-03-16] MEDS: DOCUSATE SODIUM 100 MG CAPSULE PO SCH (21:23)
[2018-03-17] MEDS: ALBUTEROL/IPRATROPIUM 3 ML NEB RESP TX SCH ×2 (00:18→07:12)
[2018-03-17] MEDS: INSULIN LISPRO 100 UNIT/ML SUBCUT SCH ×3 (00:26→13:50)
[2018-03-17] MEDS: ONDANSETRON 4 MG/2 ML VIAL IV PRN (05:10)
[2018-03-17] MEDS: PROMETHAZINE 25 MG/1 ML VIAL IM PRN (09:45)
[2018-03-17] MEDS: hydrALAZINE 25 MG TABLET PO SCH ×2 (10:19→14:26)
[2018-03-17] MEDS: MUPIROCIN 2% OINT 22 GM TUBE TOP SCH (10:20)
[2018-03-17] MEDS: POLYETHYLENE GLYCOL POWDER 17 GM PACK PO SCH (10:20)
[2018-03-17] MEDS: ASCORBIC ACID 500 MG TABLET PO SCH (10:21)
[2018-03-17] MEDS ORDERED: OXYMETAZOLINE 0.05% NASAL SPRAY 15 ML BOTTLE BOTH NARES PRN (11:28)
[2018-03-17] MEDS: DILTIAZEM CD 180 MG CAPSULE PO SCH (11:29)
[2018-03-17] MEDS: BISOPROLOL 5 MG TABLET PO SCH (11:30)
[2018-03-17] MEDS: PANTOPRAZOLE 40 MG TABLET PO SCH (11:30)
[2018-03-17] MEDS: metOLazone 5 MG TABLET PO SCH (11:30)
[2018-03-17] MEDS: TORSEMIDE 20 MG TABLET PO SCH (11:30)
[2018-03-17] MEDS: ALLOPURINOL 100 MG TABLET PO SCH (11:31)
[2018-03-17] MEDS: SERTRALINE 25 MG TABLET PO SCH (11:31)
[2018-03-17 12:06] VITALS: BP 135/65
[2018-03-17] MEDS: BUDESONIDE/FORMOTEROL 160-4.5 INHALER 6 GM INH SCH (13:50)
== END 2018-03-17 14:28 | DRG 480 ==
LOC: EDBD → EDUNIT# → N.ED 18:17 → SUATTDRO 03-04 → N.EDINP 03-04 → N.3E 03-04 00:25 → N.ICU 03-14 18:11 → N.3E 03-15 16:32
PROVIDERS: ADMIT Internal Medicine; ATTEND Internal Medicine